=== PATIENT | male | born 1980 | race Two or more races ===

== ENCOUNTER 2023-12-13 13:08 | Outpatient (REF) | payer MEDICARE, MEDICAID, SELFPAY ==
[2023-12-13 14:29] LABS: Valproate 67.8 mcg/mL (50.0-100.0)
[2023-12-13 14:33] LABS: Alanine Aminotransferase 11 U/L (0-40); Albumin Level 3.8 g/dL (3.5-5.0); Alkaline Phosphatase 72 U/L (39-117); Aspartate Amino Transferase 13 U/L (5-37); Bilirubin Direct 0.1 mg/dL (0.0-0.5); Bilirubin Total 0.3 mg/dL (0.0-1.0); Total Protein 6.5 g/dL (6.5-8.0)
== END 2023-12-13 13:09 | disposition home or self-care (01) ==
LOC: HO.LAB 13:08
PROVIDERS: Visit Provider Psychiatry & Neurology Neurology
DX: G40.909 Epilepsy, unspecified, not intractable, without status epilepticus (principal); Z79.899 Other long term (current) drug therapy
CPT/HCPCS: 36415; 80076; 80164

== ENCOUNTER 2024-12-02 10:51 | Outpatient (AMB) | payer MEDICARE, MEDICAID, SELFPAY ==
--- OUTSIDE RECORDS SUMMARY | 2024-11-27 10:34 | XMS_ITS | Continuity of Care Document ---
Author Organization [facility] ter Address [address] [place] [id number]- Care Team Providers Care Bridge Game Director Name Role Phone Not on Staff, PCP Primary Care Physician Unavail able Encounter [facility] [place] Date(s): 11/17/24 - 11/27/[address] [address]- Encounter Diagnosis Seizure(Final) - 11/17/24 Lactic acidosis(Final) - 11/17/24 Altered mental status(Final) - 11/17/24 Respiratory acidosis(Final) - 11/17/24 Discharge Disposition: A-D/C Home Attending Physician: Linette RIVERA, Dex Pappas Admitting Physician: Yamile Mello MD Referring Physician: Not on Staff, Referring MD Encounter Type: Disch IP Allergies, Adverse Reactions, Alerts No Known Allergies Immunizations Given and Recorded Vaccine Date Status Refusal Reason pneumococcal 23-valent vaccine 11/20/14 Given tetanus/diphtheria/pertussis, acel(Tdap) 08/16/12 Given Medications Advocate glucometer Advocate glucometer, See Instructions, # 1 each, Refills 1, Tot. Refills 1, Maintenance, use 1-2 times a day, 06/06/21 10:43:00 AM EST, Supply, 173, cm, 05/05/21 13:06:00 EST, Height, 90, kg, 01/07/21 18:38:00 EDT, Dry Weight Start Date: 06/06/21 Status: Ordered Quantity: 1.0 Unit: each Repeat number: 2 Advocate lancets Advocate lancets, See Instructions, # 100 each, Refills 5, Tot. Refills 5, Maintenance, use 1-2 /day, 06/06/21 10:43:00 AM EST, Supply, 173, cm, 05/05/21 13:06:00 EST, Height, 90, kg, 01/07/21 18:38:00EDT, Dry Weight Start Date: 06/06/21 Status: Ordered Quantity: 100.0 Unit: each Repeat number: 6 Advocate meter test strips Advocate meter test strips, See Instructions, # 100 each, Refills 5, Tot. Refills 5, Maintenance, use 1-2 /day, 06/06/21 10:43:00 AM EST, Supply, 173, cm, 05/05/21 13:06:00 EST, Height, 90, kg, 01/07/21 18:38:00 EDT, Dry Weight Start Date: 06/06/21 Status: Ordered Quantity: 100.0 Unit: each Repeat number: 6 Alcohol Wipes See Instructions, # 2 box, Refills 3, Tot. Refills 3, Maintenance, use 3x a day to clean skin to when checking blood glucose, 12/16/15 10:48:50 AM EDT, Compound Start Date: 12/16/15 Status: Ordered Quantity: 2.0 Unit: box Repeat number: 4 atorvastatin 20 mg oral tablet 1 tablet = 20 mg, By Mouth, Daily, # 30 tablet, 0 Refills, Maintenance, 11/17/24 2:13:00 AM EDT, Tablet, Partial fill upon patient request if the prescription is for a schedule II opioid drug. Start Date: 11/17/24 Status: Ordered Quantity: 30.0 Unit: tablet Repeat number: 1 BD Ultrafine 15Fr8uv, 1/2 ml Syringe BD Ultrafine 45Hd2jc, 1/2 ml Syringe, See Instructions, # 30 each, Refills 11, Tot. Refills 11, Maintenance, Use syringe to inject Lantus daily, E11.65, 05/24/21 10:10:00 AM EST, Supply, 173, cm, 05/05/21 13:06:00 EST, Height, 90, kg, 01/07/21 18:38:00 EDT, Dry Weight Start Date: 05/24/21 Status: Ordered Quantity: 30.0 Unit: each Repeat number: 12 benztropine 1 mg oral tablet 0.5 mg, 0.5, tablet, By Mouth, 2 times a day, # 180 tablet, Refills 0, Maintenance, 11/17/24 2:13:00AM EDT, Partial fill upon patient request if the prescription is for a schedule II opioid drug. Start Date: 11/17/24 Status: Ordered Quantity: 180.0 Unit: tablet Repeat number: 1 cyanocobalamin 500 mcg oral tablet 1 tablet = 500 mcg, By Mouth, Daily, # 30 tablet, 0 Refills, Maintenance, 11/26/24 4:13:00 PM EDT, Tablet, Partial fill upon patient request if the prescription is for a schedule II opioid drug. Start Date: 11/26/24 Stop Date: 12/26/24 Status: Ordered Quantity: 30.0 Unit: tablet Repeat number: 1 Freestyle Lancets See Instructions, # 60 each, Refills 11, Tot. Refills 11, Maintenance, Use lancets to check blood glucose 2x a day, E11.65, 02/13/21 1:25:00 PM EDT, Compound, 173, cm, 03/05/20 11:33:00 EDT, Height Start Date: 02/13/21 Stop Date: 02/08/22 Status: Ordered Quantity: 60.0 Unit: each Repeat number: 12 Freestyle Lancets See Instructions, # 50 each, Refills 5, Tot. Refills 5, Maintenance, test Bg once daily, E11.9, 05/24/21 10:10:00 AM EST, Compound, 173, cm, 05/05/21 13:06:00 EST, Height, 90, kg, 01/07/21 18:38:00 EDT, Dry Weight Start Date: 05/24/21 Stop Date: 11/20/21 Status: Ordered Quantity: 50.0 Unit: each Repeat number: 6 FREESTYLE LITE TEST STRIP FREESTYLE LITE TEST STRIP, See Instructions, # 100 Unknown, 4 Refills, USE TEST STRIPS TO CHECK BLOOD GLUCOSE 2X A DAY, E11.65,, 173, cm, 01/14/21 9:16:00 EDT, Height, 90, kg, 01/07/21 18:38:00 EDT, Dry Weight Start Date: 03/14/21 Status: Ordered Quantity: 100.0 Unit: Unknown Repeat number: 1 Freestyle Lite Test Strips See Instructions, # 60 each, Refills 11, Tot. Refills 11, Maintenance, Use test strips to check blood glucose 2x a day, E11.65,, 05/24/21 10:10:00 AM EST, Compound, 173, cm, 05/05/21 13:06:00 EST, Height, 90, kg, 01/07/21 18:38:00 EDT, Dry Weight Start Date: 05/24/21 Status: Ordered Quantity: 60.0 Unit: each Repeat number: 12 gemfibrozil 600 mg oral tablet 600 mg, 1, tablet, By Mouth, 2 times a day, # 60 tablet, Refills 0, Maintenance, 11/17/24 2:14:00 AMEDT, Partial fill upon patient request if the prescription is for a schedule II opioid drug. Start Date: 11/17/24 Status: Ordered Quantity: 60.0 Unit: tablet Repeat number: 1 glipiZIDE 5 mg oral tablet 5 mg, 1, tablet, By Mouth, 2 times a day, # 60 tablet, Refills 0, Tot. Refills 0, Maintenance, 11/26/24 4:13:00 PM EDT, Do Not Route, Partial fill upon patient request if the prescription is for a schedule II opioid drug. Start Date: 11/26/24 Stop Date: 12/26/24 Status: Ordered Quantity: 60.0 Unit: tablet Repeat number: 1 Glucose Monitor See Instructions, # 1 application, Maintenance, 3 TIMES A DAY, 09/10/15 11:15:08 AM EDT, Compound Start Date: 09/10/15 Status: Ordered Quantity: 1.0 Unit: application Repeat number: 1 Glucose Test Strips See Instructions, # 1 box, Refills 1, Tot. Refills 1, Maintenance, 3 TIMES A DAY, 09/10/15 11:15:14 AM EDT, Compound Start Date: 09/10/15 Status: Ordered Quantity: 1.0 Unit: box Repeat number: 2 Insulin Syringe, BD Ultra-Fine 0.5 cc 30 G x 12.7 mm (1/2in) See Instructions, # 1 application, Refills 2, Tot. Refills 2, Maintenance, 2 TIMES A DAY, 09/11/15 10:59:20 AM EDT, Compound Start Date: 09/11/15 Status: Ordered Quantity: 1.0 Unit: application Repeat number: 3 Insulin Syringe, BD Ultra-Fine 0.5 cc 31 G x 8 mm (10/17in) See Instructions, # 35 each, Refills 9, Tot. Refills 9, Maintenance, once daily injections.1mo., 10/23/16 5:07:01 PM EDT, Compound Start Date: 10/23/16 Stop Date: 08/19/17 Status: Ordered Quantity: 35.0 Unit: each Repeat number: 10 Indications: Type 2 diabetes mellitus without complications; Insulin Syringes See Instructions, # 1 box, Refills 1, Tot. Refills 1, Maintenance, 3 TIMES A BEFORE MEAL, 09/10/15 11:15:34 AM EDT, Compound Start Date: 09/10/15 Status: Ordered Quantity: 1.0 Unit: box Repeat number: 2 lacosamide 100 mg oral tablet = 100 mg, By Mouth, 2 times a day, # 60 tablet, 0 Refills, Maintenance, 12/26/24 4:13:00 PM EDT, Tablet, [facility], Partial fill upon patient request if the prescription is for a schedule II opioid drug., 167, cm, 11/26/24 4:54:00 EDT, Height, 93.8, kg, 11/17/24 1:02:00 EDT, Dry Weight Start Date: 12/26/24 Stop Date: 01/25/25 Status: Ordered Quantity: 60.0 Unit: tablet Repeat number: 1 Lancets See Instructions, # 1 box, Refills 1, Tot. Refills 1, Maintenance, 3 TIMES A DAY, 09/10/15 11:15:22 AM EDT, Compound Start Date: 09/10/15 Status: Ordered Quantity: 1.0 Unit: box Repeat number: 2 Lantus Inj 0.1 mL = 10 units, Subcutaneous Injection, Daily at bedtime, 0 Refills, Maintenance, 11/26/24 4:13:00 PM EDT, Injection, Partial fill upon patient request if the prescription is for a schedule II opioid drug. Start Date: 11/26/24 Status: Ordered Repeat number: 1 magnesium oxide 400 mg oral tablet = 400 mg, By Mouth, 2 times a day, for 2 days, # 4 tablet, 0 Refills, Acute 11/28/24 4:15:00 PM EDT,11/26/24 4:15:00 PM EDT, Tablet, [facility], Partial fill upon patient request if the prescription is for a schedule II opioid drug., 167, cm, 11/26/24 4:54:00 EDT, Height, 93.8, kg, 11/17/24 1:02:00 EDT, Dry Weight Start Date: 11/26/24 Stop Date: 11/28/24 Status: Ordered Quantity: 4.0 Unit: tablet Repeat number: 1 metFORMIN 1000 mg oral tablet 1 tablet = 1,000 mg, By Mouth, 2 times a day, # 60 tablet, 0 Refills, Maintenance, 11/17/24 2:13:00 AM EDT, Tablet, Partial fill upon patient request if the prescription is for a schedule II opioid drug. Start Date: 11/17/24 Status: Ordered Quantity: 60.0 Unit: tablet Repeat number: 1 One Touch Ultra 2 Glucose Meter See Instructions, # 1 each, Refills 2, Tot. Refills 2, Maintenance, use as directed for Type 1 Diabetes Mellitus, 09/11/15 11:01:50 AM EDT, Compound Start Date: 09/11/15 Stop Date: 12/10/15 Status: Ordered Quantity: 1.0 Unit: each Repeat number: 3 One Touch Ultra Test Strips See Instructions, # 200 each, Refills 5, Tot. Refills 5, Maintenance, use as directed for Type 1 Diabetes Mellitus, 09/11/15 11:01:38 AM EDT, Compound Start Date: 09/11/15 Stop Date: 03/09/16 Status: Ordered Quantity: 200.0 Unit: each Repeat number: 6 potassium phosphate-sodium phosphate 250 mg-280 mg-160 mg oral powder for reconstitution 1 pack/packet, By Mouth, 2 times a day, # 4 pack/packet, 0 Refills, Maintenance, 11/26/24 4:16:00 PMEDT, Oral Powder, [facility], Partial fill upon patient request if the prescription is for a schedule II opioid drug., 1 pack/packet By Mouth 2 times a day,x2 days, 167, cm, 11/26/24 4:54:00 EDT, Height, 93.8, kg, 11/17/24 1:02:00 EDT, Dry Weight Start Date: 11/26/24 Stop Date: 11/28/24 Status: Ordered Quantity: 4.0 Unit: pack/packet Repeat number: 1 Prodify lancets E 11.65 Prodify lancets E 11.65, See Instructions, # 120 each, Refills 5, Tot. Refills 5, Maintenance, Use 4/ day, 07/05/21 3:10:00 PM EST, Supply, 173, cm, 05/05/21 13:06:00 EST, Height, 90, kg, 01/07/21 18:38:00 EDT, Dry Weight Start Date: 07/05/21 Status: Ordered Quantity: 120.0 Unit: each Repeat number: 6 Prodigy glucoemter. Prodigy glucoemter., See Instructions, # 1 each, Refills 1, Tot. Refills 1, Maintenance, test 4 times a day E 11.65, 06/17/21 8:55:00 AM EST, Supply, 173, cm, 05/05/21 13:06:00 EST, Height, 90, kg, 01/07/21 18:38:00 EDT, Dry Weight Start Date: 06/17/21 Status: Ordered Quantity: 1.0 Unit: each Repeat number: 2 Prodigy Teststrips Prodigy Teststrips, See Instructions, # 360 each, Refills 3, Tot. Refills 3, Maintenance, Use 4/ day . ICD : E 11.65, 06/17/21 8:55:00 AM EST, Supply, 173, cm, 05/05/21 13:06:00 EST, Height, 90, kg, 01/07/21 18:38:00 EDT, Dry Weight Start Date: 06/17/21 Status: Ordered Quantity: 360.0 Unit: each Repeat number: 4 PRODIGY TWIST TOP 28G LANCET PRODIGY TWIST TOP 28G LANCET, See Instructions, # 100 Unknown, 0 Refills, USE 4 TIMES DAILY DIRECTED., 173, cm, 05/05/21 13:06:00 EST, Height, 90, kg, 01/07/21 18:38:00 EDT, Dry Weight Start Date: 06/29/21 Status: Ordered Quantity: 100.0 Unit: Unknown Repeat number: 1 risperiDONE 3 mg oral tablet 3 mg, 1, tablet, By Mouth, 2 times a day, # 60 tablet, Refills 0, Maintenance, 11/17/24 2:14:00 AM EDT, Partial fill upon patient request if the prescription is for a schedule II opioid drug. Start Date: 11/17/24 Status: Ordered Quantity: 60.0 Unit: tablet Repeat number: 1 Toprol XL 25 mg oral tablet, extended release 25 mg, XL Tablet, By Mouth, 11/27/24 9:00:00 AM EDT Start Date: 11/27/24 Stop Date: 11/27/24 Status: Completed Repeat number: 1 Toprol XL 25 mg oral tablet, extended release 25 mg, By Mouth, Daily, # 30 tablet, Refills 0, Tot. Refills 0, Maintenance, 11/26/24 4:15:00 PM EDT, Route to Pharmacy Electronically, [facility] 3, Partial fill upon patient request if the prescription is for a schedule II opioid drug., 167, cm, 11/26/24 4:54:00 EDT, Height, 93.8, kg, 11/17/24 1:02:00 EDT, Dry Weight Start Date: 11/26/24 Stop Date: 12/26/24 Status: Ordered Quantity: 30.0 Unit: tablet Repeat number: 1 traZODone 50 mg oral tablet 150 mg, By Mouth, Daily at bedtime, Refills 0, Maintenance, 10/04/20 1:58:00 PM EDT, Partial fill upon patient request if the prescription is for a schedule II opioid drug. Start Date: 10/04/20 Status: Ordered Repeat number: 1 Tylenol 325 mg oral tablet 650 mg, By Mouth, Every 6 hours, PRN, Refills 0, Maintenance, Pain , Moderate, 11/26/24 4:08:00 PM EDT, Partial fill upon patient request if the prescription is for a schedule II opioid drug. Start Date: 11/26/24 Status: Ordered Repeat number: 1 valproic acid 250 mg/5 mL oral syrup 12.5 mL = 625 mg, By Mouth, Every 6 hours, # 1,500 mL, 0 Refills, Maintenance, 11/26/24 4:14:00 PM EDT, Syrup, [facility] 3, Partial fill upon patient request if the prescription is for a schedule II opioid drug., 167, cm, 11/26/24 4:54:00 EDT, Height, 93.8, kg, 11/17/24 1:02:00 EDT, DryWeight Start Date: 11/26/24 Status: Ordered Quantity: 1500.0 Unit: mL Repeat number: 1 Problem List Condition Confirmation Course Effective Dates Status Health St atus Informant Obese class I Confirmed Active Sleep apnea Confirmed Active T2DM (type 2 diabetes mellitus) Confirmed Active Results Radiology Reports * Exam Date Time Procedure Performing Provider Status 11/22/24 2:30 PM Chest Portable Auth (Veri fied) Notes: (Chest Portable) Reason For Exam: Cough RESULT: Chest Portable Chest Portable Reason: Cough; Clinical Question(s): Pneumonia; Please evaluate for any acute changes. Thanks. / Pneumonia COMPARISON: 11/19/2024 FINDINGS: LINES AND TUBES: None. LUNGS AND PLEURA: Low lung volumes with mild basilar atelectasis. Lungs are otherwise clear with no definite consolidation. No pleural effusion. No pneumothorax. HEART, MEDIASTINUM AND NORY: Heart is normal in size. Normal mediastinal and hilar contour. BONES AND SOFT TISSUES: No acute abnormality. IMPRESSION: No evidence of acute abnormality. WSN: [id number] Ordering Physician: Dov Hobson Dictated By: Jean Godinez MD Dictated Date/Time: 11/22/24 2:33 pm Reviewed By: Jean Godinez MD Signed By: Jean Godinez MD Signed Date/Time: 11/22/24 2:33 pm Transcribed By: LUZ Transcribed Date/Time: 11/22/24 2:33 pm * Exam Date Time Procedure Performing Provider Status 11/19/24 9:11 AM Chest Portable Auth (Veri fied) Notes: (Chest Portable) Reason For Exam: Shortness of Breath RESULT: Chest Portable Chest Portable Reason: Shortness of Breath; Clinical Question(s): Pulmonary Edema COMPARISON: 11/16/2024. FINDINGS: LINES AND TUBES: Interval removal of endotracheal tube. Interval removal of enteric tube. LUNGS AND PLEURA: Low lung volumes with bibasilar atelectasis is again seen, lungs are otherwise clear. Persistent moderate elevation of the right hemidiaphragm probably due to eventration with minimal subsegmental atelectasis right lung base unchanged. Normal pulmonary vascularity. Questionable trace left pleural effusion. No pneumothorax. HEART, MEDIASTINUM AND NORY: Heart is normal in size. Normal mediastinal and hilar contour. BONES AND SOFT TISSUES: No acute abnormality. IMPRESSION: 1. Questionable trace left pleural effusion. Persistent moderate elevation of the right hemidiaphragm. 2. Interval removal of endotracheal tube. 3. Interval removal of enteric tube. WSN: [id number] Ordering Physician: Scarlett Muñoz Dictated By: Bandar Dolan MD, V Dictated Date/Time: 11/19/24 12:24 p Reviewed By: Bandar Dolna MD, V Signed By: Bandar Dolan MD, V Signed Date/Time: 11/19/24 12:24 pm Transcribed By: LUZ Transcribed Date/Time: 11/19/24 12:09 pm * Exam Date Time Procedure Performing Provider Status 11/17/24 12:[address] Lumbar Spine W/O Contrast Auth (Verified) Notes: (CT Lumbar Spine W/O Contrast) Reason For Exam: Spine fracture, lumbar, traumatic;Other: RESULT: CT Lumbar Spine W/O Contrast CT Chest W/O Contrast, CT Thoracic Spine W/O Contrast, CT Lumbar Spine W/O Contrast INDICATION: Reason: Other:; Chest Pain; Clinical Question(s): Interstitial Alveolar Infiltration TECHNIQUE: Helical CT scan of the chest without IV contrast, formatted in 3 planes. The original dataset was reconstructed with a small field of view around the thoracic and lumbar spine utilizing soft tissue and bone algorithm reconstructions in 3 planes. Weight-based protocol was performed using automatic exposure control. CTDIvol Body: 19.70 mGy, DLP Body: 1207 mGy*cm. COMPARISON: None. FINDINGS: Medical Imaging Technician view findings, lines and tubes: Endotracheal tube tip terminates approximately 2.9 cm above the janice. Enteric tube tip is within the stomach. Trachea and airways: Patent without evidence of tracheal or endobronchial lesion. Lungs and pleura: Low lung volumes. Consolidative opacity with air bronchograms in the right lower lobe. Small bilateral pleural effusions with adjacent compressive atelectasis. Interlobular septal thickening. Calcified granulomata in the left lung base.. No suspicious pulmonary nodule. No pneumothorax. Mediastinum and nory: No mass or hematoma. No mediastinal or hilar lymphadenopathy. No esophageal abnormality. Partially imaged thyroid is unremarkable. Heart: Heart is normal in size. No pericardial effusion. No coronary arterial calcifications. Aorta: No aortic aneurysm. Pulmonary arteries: Normal caliber. Chest wall soft tissues: No acute abnormality. Right greater than left gynecomastia. No axillary lymphadenopathy. Diaphragm: Elevation of the right hemidiaphragm. Liver: Normal in attenuation and morphology. No suspicious lesion. Gallbladder: No CT evidence of gallbladder pathology. Bile ducts: No biliary ductal dilation. Spleen: Normal in size. Pancreas: No suspicious lesion or ductal dilatation. Adrenal glands: No nodule. Kidneys and ureters: No hydronephrosis, stone, or noncontrast evidence of a suspicious lesion within the visualized portions of the kidneys. Mild nonspecific bilateral perinephric fat stranding. Stomach and visualized small bowel, and large bowel: Normal caliber stomach and bowel loops. No surrounding inflammatory changes. Submucosal fat deposition throughout the visualized colon, as can be seen with chronic inflammation, obesity, or extensive alcohol use. Thoracic spine: * Questionable Nondisplaced T5 vertebral body fracture. * Questionable Minimally displaced right T6 transverse process fracture. Questionable Nondisplaced fracture of the right T5 and T6 lamina. * Questionable Nondisplaced fracture of the left T2 lamina. * Questionable nondisplaced right T4, T5, and T7, T9, T11 transverse process fracture. Lumbar spine: * Questionable Nondisplaced left L1-L3 transverse process fracture * Questionable Nondisplaced right L1 transverse process fracture. Bones: Question very subtle Nondisplaced first through fourth right posterior rib fractures. Questionable Nondisplaced left posterior 12th rib fracture. IMPRESSION: 1. Small bilateral pleural effusions with adjacent compressive atelectasis. Probable right lower lobe pneumonia. Mild interlobular septal thickening suggesting interstitial edema. 2. Osseous detail is somewhat limited by motion. However, there is a questionable nondisplaced T5 questionable vertebral body fracture and a minimally displaced right questionable T6 transverse process fracture. Questionable Nondisplaced fractures of the right T5 and T6 lamina are also seen. 3. There are several additional questionable tiny nondisplaced fractures of right transverse processes, as detailed above. 4. Questionable Questionable Nondisplaced left-sided L1-L3 transverse process fractures. Nondisplaced right L1 transverse process fracture. 5. Very subtle questionable Nondisplaced fractures of the first through fourth right posterior ribs. Questionable Nondisplaced fracture of the left posterior 12th rib. I have personally reviewed the images and I agree with this report. WSN: [id number] Ordering Physician: Júnior Prescott Dictated By: Darrell An MD Dictated Date/Time: 11/17/24 7:35 am Reviewed By: Drew Acevedo MD Signed By: Drew Acevedo MD Signed Date/Time: 11/17/24 7:40 am Transcribed By: LUZ Transcribed Date/Time: 11/17/24 2:40 am * Exam Date Time Procedure Performing Provider Status 11/17/24 12:[address] Thoracic Spine W/O Contrast Auth (Verified) Notes: (CT Thoracic Spine W/O Contrast) Reason For Exam: Spine fracture, thoracic, traumatic;Other: RESULT: CT Thoracic Spine W/O Contrast CT Chest W/O Contrast, CT Thoracic Spine W/O Contrast, CT Lumbar Spine W/O Contrast INDICATION: Reason: Other:; Chest Pain; Clinical Question(s): Interstitial Alveolar Infiltration TECHNIQUE: Helical CT scan of the chest without IV contrast, formatted in 3 planes. The original dataset was reconstructed with a small field of view around the thoracic and lumbar spine utilizing soft tissue and bone algorithm reconstructions in 3 planes. Weight-based protocol was performed using automatic exposure control. CTDIvol Body: 19.70 mGy, DLP Body: 1207 mGy*cm. COMPARISON: None. FINDINGS: Medical Imaging Technician view findings, lines and tubes: Endotracheal tube tip terminates approximately 2.9 cm above the janice. Enteric tube tip is within the stomach. Trachea and airways: Patent without evidence of tracheal or endobronchial lesion. Lungs and pleura: Low lung volumes. Consolidative opacity with air bronchograms in the right lower lobe. Small bilateral pleural effusions with adjacent compressive atelectasis. Interlobular septal thickening. Calcified granulomata in the left lung base.. No suspicious pulmonary nodule. No pneumothorax. Mediastinum and nory: No mass or hematoma. No mediastinal or hilar lymphadenopathy. No esophageal abnormality. Partially imaged thyroid is unremarkable. Heart: Heart is normal in size. No pericardial effusion. No coronary arterial calcifications. Aorta: No aortic aneurysm. Pulmonary arteries: Normal caliber. Chest wall soft tissues: No acute abnormality. Right greater than left gynecomastia. No axillary lymphadenopathy. Diaphragm: Elevation of the right hemidiaphragm. Liver: Normal in attenuation and morphology. No suspicious lesion. Gallbladder: No CT evidence of gallbladder pathology. Bile ducts: No biliary ductal dilation. Spleen: Normal in size. Pancreas: No suspicious lesion or ductal dilatation. Adrenal glands: No nodule. Kidneys and ureters: No hydronephrosis, stone, or noncontrast evidence of a suspicious lesion within the visualized portions of the kidneys. Mild nonspecific bilateral perinephric fat stranding. Stomach and visualized small bowel, and large bowel: Normal caliber stomach and bowel loops. No surrounding inflammatory changes. Submucosal fat deposition throughout the visualized colon, as can be seen with chronic inflammation, obesity, or extensive alcohol use. Thoracic spine: * Questionable Nondisplaced T5 vertebral body fracture. * Questionable Minimally displaced right T6 transverse process fracture. Questionable Nondisplaced fracture of the right T5 and T6 lamina. * Questionable Nondisplaced fracture of the left T2 lamina. * Questionable nondisplaced right T4, T5, and T7, T9, T11 transverse process fracture. Lumbar spine: * Questionable Nondisplaced left L1-L3 transverse process fracture * Questionable Nondisplaced right L1 transverse process fracture. Bones: Question very subtle Nondisplaced first through fourth right posterior rib fractures. Questionable Nondisplaced left posterior 12th rib fracture. IMPRESSION: 1. Small bilateral pleural effusions with adjacent compressive atelectasis. Probable right lower lobe pneumonia. Mild interlobular septal thickening suggesting interstitial edema. 2. Osseous detail is somewhat limited by motion. However, there is a questionable nondisplaced T5 questionable vertebral body fracture and a minimally displaced right questionable T6 transverse process fracture. Questionable Nondisplaced fractures of the right T5 and T6 lamina are also seen. 3. There are several additional questionable tiny nondisplaced fractures of right transverse processes, as detailed above. 4. Questionable Questionable Nondisplaced left-sided L1-L3 transverse process fractures. Nondisplaced right L1 transverse process fracture. 5. Very subtle questionable Nondisplaced fractures of the first through fourth right posterior ribs. Questionable Nondisplaced fracture of the left posterior 12th rib. I have personally reviewed the images and I agree with this report. WSN: [id number] Ordering Physician: Júnior Prescott Dictated By: Darrell An MD Dictated Date/Time: 11/17/24 7:35 am Reviewed By: Drew Acevedo MD Signed By: Drew Acevedo MD Signed Date/Time: 11/17/24 7:40 am Transcribed By: LUZ Transcribed Date/Time: 11/17/24 2:40 am * Exam Date Time Procedure Performing Provider Status 11/17/24 12:[address] Chest W/O Contrast Au th (Verified) Notes: (CT Chest W/O Contrast) Reason For Exam: Chest Pain;Other: RESULT: CT Chest W/O Contrast CT Chest W/O Contrast, CT Thoracic Spine W/O Contrast, CT Lumbar Spine W/O Contrast INDICATION: Reason: Other:; Chest Pain; Clinical Question(s): Interstitial Alveolar Infiltration TECHNIQUE: Helical CT scan of the chest without IV contrast, formatted in 3 planes. The original dataset was reconstructed with a small field of view around the thoracic and lumbar spine utilizing soft tissue and bone algorithm reconstructions in 3 planes. Weight-based protocol was performed using automatic exposure control. CTDIvol Body: 19.70 mGy, DLP Body: 1207 mGy*cm. COMPARISON: None. FINDINGS: Medical Imaging Technician view findings, lines and tubes: Endotracheal tube tip terminates approximately 2.9 cm above the janice. Enteric tube tip is within the stomach. Trachea and airways: Patent without evidence of tracheal or endobronchial lesion. Lungs and pleura: Low lung volumes. Consolidative opacity with air bronchograms in the right lower lobe. Small bilateral pleural effusions with adjacent compressive atelectasis. Interlobular septal thickening. Calcified granulomata in the left lung base.. No suspicious pulmonary nodule. No pneumothorax. Mediastinum and nory: No mass or hematoma. No mediastinal or hilar lymphadenopathy. No esophageal abnormality. Partially imaged thyroid is unremarkable. Heart: Heart is normal in size. No pericardial effusion. No coronary arterial calcifications. Aorta: No aortic aneurysm. Pulmonary arteries: Normal caliber. Chest wall soft tissues: No acute abnormality. Right greater than left gynecomastia. No axillary lymphadenopathy. Diaphragm: Elevation of the right hemidiaphragm. Liver: Normal in attenuation and morphology. No suspicious lesion. Gallbladder: No CT evidence of gallbladder pathology. Bile ducts: No biliary ductal dilation. Spleen: Normal in size. Pancreas: No suspicious lesion or ductal dilatation. Adrenal glands: No nodule. Kidneys and ureters: No hydronephrosis, stone, or noncontrast evidence of a suspicious lesion within the visualized portions of the kidneys. Mild nonspecific bilateral perinephric fat stranding. Stomach and visualized small bowel, and large bowel: Normal caliber stomach and bowel loops. No surrounding inflammatory changes. Submucosal fat deposition throughout the visualized colon, as can be seen with chronic inflammation, obesity, or extensive alcohol use. Thoracic spine: * Questionable Nondisplaced T5 vertebral body fracture. * Questionable Minimally displaced right T6 transverse process fracture. Questionable Nondisplaced fracture of the right T5 and T6 lamina. * Questionable Nondisplaced fracture of the left T2 lamina. * Questionable nondisplaced right T4, T5, and T7, T9, T11 transverse process fracture. Lumbar spine: * Questionable Nondisplaced left L1-L3 transverse process fracture * Questionable Nondisplaced right L1 transverse process fracture. Bones: Question very subtle Nondisplaced first through fourth right posterior rib fractures. Questionable Nondisplaced left posterior 12th rib fracture. IMPRESSION: 1. Small bilateral pleural effusions with adjacent compressive atelectasis. Probable right lower lobe pneumonia. Mild interlobular septal thickening suggesting interstitial edema. 2. Osseous detail is somewhat limited by motion. However, there is a questionable nondisplaced T5 questionable vertebral body fracture and a minimally displaced right questionable T6 transverse process fracture. Questionable Nondisplaced fractures of the right T5 and T6 lamina are also seen. 3. There are several additional questionable tiny nondisplaced fractures of right transverse processes, as detailed above. 4. Questionable Questionable Nondisplaced left-sided L1-L3 transverse process fractures. Nondisplaced right L1 transverse process fracture. 5. Very subtle questionable Nondisplaced fractures of the first through fourth right posterior ribs. Questionable Nondisplaced fracture of the left posterior 12th rib. I have personally reviewed the images and I agree with this report. WSN: [id number] Ordering Physician: Júnior Prescott Dictated By: Darrell An MD Dictated Date/Time: 11/17/24 7:35 am Reviewed By: Drew Acevedo MD Signed By: Drew Acevedo MD Signed Date/Time: 11/17/24 7:40 am Transcribed By: LUZ Transcribed Date/Time: 11/17/24 2:40 am * Exam Date Time Procedure Performing Provider Status 11/17/24 12:[address] Cervical Spine W/O Contrast Auth (Verified) Notes: (CT Cervical Spine W/O Contrast) Reason For Exam: Neck trauma, dangerous injury mechanism;Other: RESULT: CT Cervical Spine W/O Contrast CT Head/Brain W/O Contrast, CT Cervical Spine W/O Contrast INDICATION: Reason: Trauma; Clinical Question(s): Subarachnoid Hemorrhage; Order Comment: TECHNIQUE: Noncontrast head CT using axial technique was reconstructed in axial and coronal planes.Noncontrast spiral CT through the cervical spine was formatted in 3 planes. Automatic tube modulation was used for the cervical spine and iterative dose reconstruction was used for both the head and cervical spine to optimize scan parameters and image quality. CTDIvol Body: 21.30 mGy, DLP Body: 582 mGy*cm. CTDIvol Head: 46.30 mGy, DLP Head: 773 mGy*cm. COMPARISON: None. FINDINGS: Medical Imaging Technician View Findings, Lines and Tubes: Endotracheal and enteric tubes in place. BRAIN AND EXTRA-AXIAL SPACES: No parenchymal hemorrhage, midline shift, or mass effect. Encephalomalacia in the left frontal lobelikely related to prior left frontal craniotomy. Otherwise, chawla-white matter differentiation is well preserved. No acute infarct. Negative insular ribbon and hyperdense vessel signs. Ventricles, sulci, and basilar cisterns are normal. No white matter lesions. No subarachnoid hemorrhage. No subdural or epidural collection. CALVARIUM, SKULL BASE, AND SOFT TISSUES: No fractures or suspicious bony lesions. Status post left frontal craniotomy. Mucosal thickening in the bilateral ethmoid air cells and sphenoid sinuses as well as the right frontal sinus. Otherwise, visualized paranasal sinuses and mastoid air cells are clear. Visualized orbits and globes are intact. The extracranial soft tissues are unremarkable. CERVICAL SPINE: No fracture. No acute osseous abnormalities. Normal alignment. No locked or perched facet. Mild-moderate multilevel degenerative disc space narrowing and end plate irregularity. OTHER BONES: No acute abnormality. CERVICAL SOFT TISSUES AND LUNG APICES: Normal soft tissues. Mild dependent atelectasis bilaterally. Normal thyroid. IMPRESSION: No acute abnormality of the head or cervical spine. I have personally reviewed the images and I agree with this report. WSN: [id number] Ordering Physician: Júnior Prescott Dictated By: Darrell An MD Dictated Date/Time: 11/17/24 6:34 am Reviewed By: Drew Acevedo MD Signed By: Drew Acevedo MD Signed Date/Time: 11/17/24 6:39 am Transcribed By: LUZ Transcribed Date/Time: 11/17/24 1:17 am * Exam Date Time Procedure Performing Provider Status 11/17/24 12:[address] Head/Brain W/O Contrast Auth (Verified) Notes: (CT Head/Brain W/O Contrast) Reason For Exam: Trauma RESULT: CT Head/Brain W/O Contrast CT Head/Brain W/O Contrast, CT Cervical Spine W/O Contrast INDICATION: Reason: Trauma; Clinical Question(s): Subarachnoid Hemorrhage; Order Comment: TECHNIQUE: Noncontrast head CT using axial technique was reconstructed in axial and coronal planes.Noncontrast spiral CT through the cervical spine was formatted in 3 planes. Automatic tube modulation was used for the cervical spine and iterative dose reconstruction was used for both the head and cervical spine to optimize scan parameters and image quality. CTDIvol Body: 21.30 mGy, DLP Body: 582 mGy*cm. CTDIvol Head: 46.30 mGy, DLP Head: 773 mGy*cm. COMPARISON: None. FINDINGS: Medical Imaging Technician View Findings, Lines and Tubes: Endotracheal and enteric tubes in place. BRAIN AND EXTRA-AXIAL SPACES: No parenchymal hemorrhage, midline shift, or mass effect. Encephalomalacia in the left frontal lobelikely related to prior left frontal craniotomy. Otherwise, chawla-white matter differentiation is well preserved. No acute infarct. Negative insular ribbon and hyperdense vessel signs. Ventricles, sulci, and basilar cisterns are normal. No white matter lesions. No subarachnoid hemorrhage. No subdural or epidural collection. CALVARIUM, SKULL BASE, AND SOFT TISSUES: No fractures or suspicious bony lesions. Status post left frontal craniotomy. Mucosal thickening in the bilateral ethmoid air cells and sphenoid sinuses as well as the right frontal sinus. Otherwise, visualized paranasal sinuses and mastoid air cells are clear. Visualized orbits and globes are intact. The extracranial soft tissues are unremarkable. CERVICAL SPINE: No fracture. No acute osseous abnormalities. Normal alignment. No locked or perched facet. Mild-moderate multilevel degenerative disc space narrowing and end plate irregularity. OTHER BONES: No acute abnormality. CERVICAL SOFT TISSUES AND LUNG APICES: Normal soft tissues. Mild dependent atelectasis bilaterally. Normal thyroid. IMPRESSION: No acute abnormality of the head or cervical spine. I have personally reviewed the images and I agree with this report. WSN: [id number] Ordering Physician: Júnior Prescott Dictated By: Darrell An MD Dictated Date/Time: 11/17/24 6:34 am Reviewed By: Drew Acevedo MD Signed By: Drew Acevedo MD Signed Date/Time: 11/17/24 6:39 am Transcribed By: LUZ Transcribed Date/Time: 11/17/24 1:17 am * Exam Date Time Procedure Performing Provider Status 11/16/24 9:58 PM Chest Portable Auth (Veri fied) Notes: (Chest Portable) Reason For Exam: Tube Placement RESULT: Chest Portable Chest Portable Hx of Present Illness: See cheryl 1 sheet; Reason: Tube Placement; Clinical Question(s): Tube Placement COMPARISON: None. FINDINGS: LINES AND TUBES: Endotracheal tube terminates 3 cm above the janice. Enteric tube terminates in the stomach with its side hole below the level of the GE junction. LUNGS AND PLEURA: Low lung volumes with mild basilar atelectasis. Lungs are otherwise clear with no consolidation. No pleural effusion. No pneumothorax. HEART, MEDIASTINUM AND NORY: Heart is normal in size. Normal mediastinal and hilar contour. BONES AND SOFT TISSUES: No acute abnormality. IMPRESSION: Support devices are in good position. Low lung volumes with bibasilar atelectasis. WSN: [id number] Ordering Physician: Júnior Prescott Dictated By: France Anderson MD Dictated Date/Time: 11/16/24 10:11 p Reviewed By: France Anderson MD Signed By: France Anderson MD Signed Date/Time: 11/16/24 10:11 pm Transcribed By: LUZ Transcribed Date/Time: 11/16/24 10:09 pm Social History Social History Type Response Smoking Status Former smoker; Other : NON SMOKER SINCE 11/08/2014; entered on: 12/01/14 Sex Sex Representation Male (finding) Admission evaluation note * Nico Perez DO: MODIFY, MODIFY, MODIFY, MODIFY, MODIFY, PERFORM, MODIFY, MODIFY, MODIFY Event Display: Admission Note Authored Date: [id number] Patient: ??THAYER, CASSIE ? Age:??44 Years?Sex:??Male?:??1980?? Chief Complaint/Reason for Consultation Unresponsive History of Present Illness 44-year-old male past medical history of epilepsy bipolar disorder, autism, schizophrenia, type 2 diabetes mellitus, presented via EMS after having seizure- like activity found outside of his apartment around 1899.?? Came in as a resuscitation and had CPR started immediately.?? He received 10 mg of Versed and per EMS was noted to have left??eye deviation at that time.?? GCS on arrival 3.?? Given patient's lack of protection of airway he was intubated and given 3 g of Keppra for seizure prophylaxis.?? He was briefly hypotensive and received 1 L of IV fluids and briefly required Levophed 0.05 mcg/kg/min which led to normalization of his blood pressure.?? He is now off of pressor medication. ? Vitals: Initially hypothermic axillary 96.5 blood on rectal 97.9.?? Heart rate 101 blood pressure 129/94 and on ventilator. ?? Labs: Venous blood gas 7.2 07/04// CBC no leukocytosis hemoglobin 12.4 unknown baseline hemoglobin MCV 97. CMP glucose 190.?? Sodium 141 potassium 4.3 chloride 107 bicarb 11 anion gap of 23 total protein low 6.1 otherwise CMP within normal limits.?? TSH 5.66 Free T4 low 0.68 Troponin 14 Urine toxicology positive for benzodiazepines but otherwise negative Influenza RSV COVID panel negative ?? Imaging: Pending CTH and CTAP CXR bibasilar atelectasis but no acute processes? Spoke with Ольга from long term??stated??that patient??has prior history of illicit drug use but she was unable to specify further.?? She states that he has not had alcohol??in over 2 years??to her knowledge.?? He states he does smoke cigarettes daily but does not know the amounts??and??I reviewed the medication list??with her??with the only discrepancy being??his valproic acid.?? She states that??he was on??an antiepileptic medication??that was slowly titrated down??and ultimately??discontinued??in May/June of this year.?? However upon medication reconciliation??and fill history??it was noted that he has??recently failed??valproic acid??and no other antiepileptic medications have been filled.?? States that in the morning she will have??more updated history??provide??once he has access to records ?? Review of Systems unable to obtain due to pt being intubated Objective Measurements?? Height: 167 cm (11/17/24) Weight: 93.8 kg (11/17/24) Dry Weight: 93.8 kg (11/17/24) Body Mass Index:??33.63 kg/m2??Critical (11/17/24) ? Vital Signs?? Temperature: 97.9 DegF (11/17/24 00:49:00) Temperature Route: Oral (11/17/24 00:49:00) Pulse Rate: 90 bpm (11/17/24 00:49:00) Heart Rate Monitored:??101 bpm??High (11/16/24 21:15:00) Respiratory Rate: 19 br/min (11/17/24 00:49:00) Vented: Yes (11/17/24 00:48:00) Systolic Blood Pressure: 125 mm Hg (11/17/24 00:49:00) Diastolic Blood Pressure: 70 mm Hg (11/17/24 00:49:00) Blood pressure sites: Arm, right (11/17/24 00:49:00) Mean Arterial Pressure: 88 mm Hg (11/17/24 00:49:00) Pulse Pressure: 55 mm Hg (11/17/24 00:49:00) Oxygen Saturation: 97 % (11/17/24 00:49:00) Mode of Delivery (Oxygen): Ventilator (11/17/24 00:49:00) FiO2: 40 % (11/16/24 21:15:00) Early Warning Score: 6 (11/16/24 23:34:20) ? Physical Exam General:??patient is intubated and sedated HEENT:??NCAT, EOMI, no scleral icterus,??moist mucus membranes, trachea midline. Cardiovascular: RRR S1 and S2 Respiratory: Breath sounds clear to auscultation bilaterally. No wheezing. GI: Soft. Nontender and nondistended. Normal bowel sounds present. MSK: No edema, no erythema in the lower extremities. Skin:??No rashes, bruises or skin breakdown. Neuro: slight left??lateral eye gaze Assessment/Plan Assessment:?? 44-year-old male with past medical history of epilepsy, bipolar disorder, autism, schizophrenia, unspecified mood disorder, type 2 diabetes mellitus??who presented??with seizure-like activity??when going to smoke cigarettes.?? Was brought in by EMS as a resuscitation??with??CPR started unclear downtime. ??Received 10 mg of Versed??and had 3 g keppra given. Unclear etiology at this time. CTH showing L frontal encephalomalacia but not acute pathology. Pt was reportedly off of antiepileptic medication prior to this which is likely cause however medication refill inconsistent with history. Also required levophed for pressure support briefly but now off of it. ?? Neuro/HEENT ?? #Endotracheally Intubated (Z97.8) on 11/16/24 #Sedated (R41.89) #Acute Metabolic Encephalopathy (G93.41) #Epilepsy ?? Presenting after witnessed seizure like activity. Elevated lactate 12. CTH Left frontal??area??with??significant encephalomalacia. ??Spoke with??radiology??who stated??that??this is most likely encephalomalacia versus new stroke. ??Patient reportedly had acute onset??ofseizures. ??Unclear at this time??for precipitating??event??was. Patient was??reportedly not having any??infectious symptoms leading up to this and no signs of infection at this time on labs/vitals.?His long term??staff?? stated that patient was coming off of??antiepileptic medication and had not recently been taking any antiepileptic medication for the past few months. However fill history suggests was filled this month. In terms of other etiologies no signs of ischemia??hyponatremia??or uremia.?? Urine toxicology??negative aside from inappropriately positive for benzos which was inappropriately positive. If pt was??taking excess benzos and??reduced dose this could??affect seizure thres hold.?? Patient is not on any other??medications that could??lower seizure threshold.??No other sources of trauma documented.?? Blood pressure has been well controlled and no significant HTN. ?? Plan: - Propofol for RAAS 0 - Fentanyl for COPT >2 - Ventilator care bundle - Daily SBT and SAT -Q2 neuro checks -Prolactin -Mag, phos ? Cardiovascular #Hypertension (I10) ?? Plan: - Levophed for MAPs >65; wean as tolerated - TTM for normothermia - HOLDING home anti-platelet and anti-coagulation for now - HOLDING home anti-hypertensives for now - digital content manager - EKG PRN ?? Pulmonary #Endotracheally Intubated (Z97.8) on / ?? Plan: - Ventilator care bundle - Daily SBT and SAT - SBT??_ - Chest Physical Therapy ?? Gastroenterology ?? no active issues Plan: -??_ - Monitor LFTs daily - NPO except for medications -GI ppx with protonix ?? Renal ?? #High anion gap metabolic acidosis #Lactic acidosis ?? High anion gap metabolic acidosis in the setting of lactic acidsosis 2/2 seizures. CK WNL. ?? Plan: - Follow up on kidney function; daily BMP - Avoid nephrotoxins - Renally dose medications - Follow-up on electrolytes and replete as necessary - Monitor I/O - Orellana catheter ?? MSK/Integ No active/acute issues. ?? Heme/Onc No active/acute issues. ?? Plan: - Daily CBC - Monitor for any signs/symptoms of bleeding - Transfuse if Hb <7 ?? Endocrine ?? #Type II Diabetes Mellitus (E11.9) #subclinical hypothyroidism TSH mildly elevated and T4 mildly reduced. In the setting of illness. ?? Plan: - Hold home diabetes regimen - Blood sugar level goal 140-180 -??blood sugar level goal 140-180 - SSI - Lantus - Hypoglycemia measures -A1c -repeat TSH with reflex T4 in 6 weeks??once out of the hospital ?? Infectious Disease no active issues ?? Quality Measures Code:??Full Code?? DVT prophylaxis:??_??pneumatic compression boots after normal scans no signs of bleeding can transition to heparin Diet:??NPOexcept for meds? Patient care discussed with Dr. Riaz Perez, DO Internal Medicine PGY-2 Pager [phone]? Histories Allergies Allergies ?(Active and Proposed Allergies Only) NKA? (Severity: Unknown severity, Onset: Unknown) ? Past Medical History/Problem List Active Problems(1) Obese class I ? Past Surgical History ?brain surgery ? Social History ?? nicotine use unclear how much ?? Family History No Family History documented. ? Medications Home Medications No medications documented.? Inpatient Medications Medications (5) Active SCHEDULED: (0) CONTINUOUS: (2) Fentanyl 1000mcg/100mL NaCL 1,000 mcg (FENTanyl 1000mcg / 100mL NaCl 1,000 mcg) ??1,000 mcg 100 mL,IV Infusion Propofol 10mg/mL Cont IV (100mL) 1,000 mg (Propofol 1% /100 mL 1,000 mg) ??1,000 mg 100 mL, IV Infusion PRN: (3) Bisacodyl 10 mg Suppository (Bisacodyl Supp) ??10 mg 1 supp, Rectally, 2 times a day Docusate Sodium 10 mg/mL Liquid UD (Colace Liquid) ??100 mg 10 mL, Orogastric Tube, 2 times a day Magnesium Hydroxide 8% Susp UD (Milk of Magnesia Liquid) ??30 mL, Orogastric Tube, 2 times a day ? Results Recent Labs BLOOD COUNT & DIFF WBC 9.0 k/mm3 ()?? 11/16/2024 21:17 RBC 3.84 m/mm3 (Low)?? 11/16/2024 21:17 Hgb 12.4 Gm/dL (Low)?? 11/16/2024 21:17 Hct 37.3 % (Low)?? 11/16/2024 21:17 MCV 97.1 femtoliters (High)?? 11/16/2024 21:17 MCH 32.3 pg ()?? 11/16/2024 21:17 MCHC 33.2 Gm/dL ()?? 11/16/2024 21:17 Platelet Count 201 k/mm3 ()?? 11/16/2024 21:17 RDW-SD 42.9 femtoliters ()?? 11/16/2024 21:17 MPV 9.8 femtoliters ()?? 11/16/2024 21:17 Nucleated RBC (Automated) 0.0 #/100 WBC'S ()?? 11/16/2024 21:17 Abs. NRBC 0.0 k/mm3 ()?? 11/16/2024 21:17 Abs. Neut 3.7 k/mm3 ()?? 11/16/2024 21:17 Abs. Lymph 4.2 k/mm3 (High)?? 11/16/2024 21:17 Abs. [place] 0.8 k/mm3 ()?? 11/16/2024 21:17 Abs. Eo 0.3 k/mm3 ()?? 11/16/2024 21:17 Abs. Baso 0.0 k/mm3 ()?? 11/16/2024 21:17 Neut % 40.8 % (Low)?? 11/16/2024 21:17 Lymph % 46.7 % (High)?? 11/16/2024 21:17 [place] % 8.3 % ()?? 11/16/2024 21:17 Eos % 3.1 % ()?? 11/16/2024 21:17 Baso % 0.4 % ()?? 11/16/2024 21:17 Hemoglobin (POC) POC Cartridge 12.2 Gm/dL (Low)?? 11/16/2024 20:46 Hematocrit (POC) POC Cartridge 36 % (Low)?? 11/16/2024 20:46 Imm Gran 0.7 % ()?? 11/16/2024 21:17 Abs. Imm Gran 0.1 k/mm3 ()?? 11/16/2024 21:17 ?? BLOOD GAS pH Venous (POC) POC Cartridge 7.21 (Low)?? 11/16/2024 20:46 pCO2 Venous (POC) POC Cartridge 31.6 mm Hg (Low)?? 11/16/2024 20:46 pO2 Venous (POC) POC Cartridge 28 mm Hg (Low)?? 11/16/2024 20:46 Est Bicarbonate (POC) POC Cartridge 12.6 mmol/L (Low)?? 11/16/2024 20:46 % O2 Sat Venous (POC) POC Cartridge 42 ()?? 11/16/2024 20:46 Base Excess (POC) POC Cartridge NEGATIVE 15 ()?? 11/16/2024 20:46 Specimen Type - Blood Gas VENOUS ()?? 11/16/2024 20:46 ?? CARDIAC High Sensitivity Troponin (HSTnT) 14 ng/L ()?? 11/16/2024 21:17 ?? CHEM GENERAL Sodium 141 mmol/L ()?? 11/16/2024 21:17 Potassium 4.3 mmol/L ()?? 11/16/2024 21:17 Chloride 107 mmol/L ()?? 11/16/2024 21:17 Bicarbonate Level 11 mmol/L (Low)?? 11/16/2024 21:17 Anion Gap 23 mmol/L (High)?? 11/16/2024 21:17 Sodium (POC) POC Cartridge 139 mmol/L ()?? 11/16/2024 20:46 Potassium (POC) POC Cartridge 4.9 mmol/L ()?? 11/16/2024 20:46 Glucose Level 190 mg/dL (High)?? 11/16/2024 21:17 Glucose (POC) POC Cartridge 186 (High)?? 11/16/2024 20:46 Glucose, POC 186 mg/dL (High)?? 11/16/2024 21:17 BUN 9 mg/dL ()?? 11/16/2024 21:17 Creatinine-Blood 0.98 mg/dL ()?? 11/16/2024 21:17 Estimated GFR Creatinine 59 ML/MIN/1.73 M2 ()?? 11/16/2024 21:17 Calcium 8.8 mg/dL ()?? 11/16/2024 21:17 Ionized Calcium (POC) POC Cartridge 1.18 mmol/L ()?? 11/16/2024 20:46 Protein, Total 6.1 Gm/dL (Low)?? 11/16/2024 21:17 Albumin 3.6 Gm/dL ()?? 11/16/2024 21:17 AG Ratio 1.4 ()?? 11/16/2024 21:17 Alkaline Phosphatase 89 units/L ()?? 11/16/2024 21:17 AST (SGOT) 17 units/L ()?? 11/16/2024 21:17 ALT (SGPT) 8 units/L ()?? 11/16/2024 21:17 Bilirubin, Total 0.2 mg/dL ()?? 11/16/2024 21:17 Lactate 12.4 mmol/L (Critical)?? 11/16/2024 21:17 ?? ENDOCRINE/TUMOR MARKER TSH 5.66 uIU/mL (High)?? 11/16/2024 21:17 Free T4 0.68 ng/dL (Low)?? 11/16/2024 21:17 ?? MISC. CHEMISTRY Hold Gel Top SPECIMEN DISCARDED AFTER 1 WEEK ()?? 11/16/2024 21:17 ?? TOXICOLOGY/TDM Barbiturate Screen, Urine NONE DETECTED ()?? 11/16/2024 22:30 Cannabinoid Screen, Urine NONE DETECTED ()?? 11/16/2024 22:30 Cocaine Metabolite Screen, Urine NONE DETECTED ()?? 11/16/2024 22:30 Benzodiazepine Screen, Urine POSITIVE (Abnormal)?? 11/16/2024 22:30 Amphetamine Screen, Urine NONE DETECTED ()?? 11/16/2024 22:30 Opiate Screen, Urine NONE DETECTED ()?? 11/16/2024 22:30 ?? URINE OTHER Est Creatinine Clearance 84.22 mL/min ()?? 11/17/2024 01:05 ?? VIROLOGY Influenza A PCR NEGATIVE ()?? 11/16/2024 22:30 Influenza B PCR NEGATIVE ()?? 11/16/2024 22:30 RSV PCR NEGATIVE ()?? 11/16/2024 22:30 COVID-19 PCR Specimen Source NASAL ()?? 11/16/2024 22:30 COVID-19 PCR Result NEGATIVE ()?? 11/16/2024 22:30 ? * Riaz RIVERA, Yamile Kebede: PERFORM Event Display: Admission Note Authored Date: [id number] ?? Supervising Attending Note ?? I have personally reviewed this patient and participated in the management plan outlined by the??resident. ?? Assessment: #AMS 2/2 epilepsy requiring intubation for airway protection, thought to be precipitated by??recentAED changes #Epilepsy #Shock, possibly 2/2 sedation vs distributive etiology, briefly requiring vasopressor support, resolved after administration of additional IVF #DMII #Left frontal encephalomalacia, noted on CT head and discussed with Radiology, formal head CT read pending ?? - Neurology consult for further seizure management. S/p 3g of Keppra. Obtain further collateral/medrec history??re recent outpatient AED use. Continue Q2h neuro checks. - Continue lung protective ventilation, wean to PSV as able - Continue analgosedation with propofol/fentanyl for now ?? Rest of plan per resident's note. ? Date of Service:?11/17/2024? I spent additional??35 minutes in performing critical care.?? The patient required critical care services due to??critical and medical diagnoses and problems listed below.??The threat to imminent deterioration of these conditions mandated critical care monitoring, observation and management. This critical care service was provided in supervision of house staff (residents and/or fellows taking care of the patient), and/or [id number] with an advanced practice provider yet independently provided critical care services with additional critical care time as documented above. ?? Critical care time reflects my personal work performing the following specific actions at the patient's bedside with the multidisciplinary team: ?? Critical care management included:??Active management of invasive mechanical ventilation, Continuous neurological assessment due to acute, impending, or ongoing neurologic compromise, Management of sedative infusions See chart documentation for additional details ?? Additional activities performed during the critical care time included: - Review of overnight and recent events - Review of medications, allergies, and vital signs - Serial data review - Ordering, interpreting, and reviewing diagnostic studies/lab tests - Clinical examination - High complexity medical decision-making ?? This time also includes time spent for documentation, but??does not include time spent in performing any separately billed procedures. ?? Yamile Mello MD Supervising Critical Care Medicine Attending Division of Pulmonary, and Critical Care Medicine, Department of Medicine, [facility]?? EKG study * Event Display: ECG 12-Lead Authored Date: Please click on pdf link to open report * Event Display: ECG 12-Lead Authored Date: Ventricular Rate: 67 BPM Atrial Rate: 67 BPM P-R Interval: 120 ms QRS Duration: 86 ms Q-T Interval: 404 ms QTC Calculation(Bazett): 426 ms P Rector: 53 degrees R Rector: 21 degrees T Rector: 72 degrees Normal sinus rhythm with sinus arrhythmia Normal ECG When compared with ECG of 17-Nov-2024 06:03, No significant change was found Confirmed by DOMO POP ([id number]) on 11/24/2024 8:32:24 AM [place]: DOMO POP * Event Display: ECG 12-Lead Authored Date: [id number] Please click on pdf link to open report * Event Display: ECG 12-Lead Authored Date: [id number] Ventricular Rate: 58 BPM Atrial Rate: 58 BPM P-R Interval: 126 ms QRS Duration: 80 ms Q-T Interval: 384 ms QTC Calculation(Bazett): 376 ms P Rector: 47 degrees R Rector: 16 degrees T Rector: 81 degrees Sinus bradycardia Otherwise normal ECG When compared with ECG of 16-Nov-2024 20:40, Vent. rate has decreased by 65 bpm Confirmed by SHANE BOLAÑOS ([id number]) on 11/17/2024 8:37:21 AM [place]: SHANE BOLAÑOS * Event Display: ECG 12-Lead Authored Date: [id number] Please click on pdf link to open report * Event Display: ECG 12-Lead Authored Date: [id number] Ventricular Rate: 123 BPM Atrial Rate: 123 BPM P-R Interval: 128 ms QRS Duration: 76 ms Q-T Interval: 330 ms QTC Calculation(Bazett): 472 ms P Rector: 59 degrees R Rector: 13 degrees T Rector: 74 degrees Sinus tachycardia Otherwise normal ECG No previous ECGs available Confirmed by Mike Pelayo ([id number]) on 11/17/2024 7:21:49 AM [place]: Mike Pelayo Heart * Event Display: Echocardiogram - Complete Authored Date: [id number] Transthoracic Echocardiography Report (TTE) Patient Demographics Patient Name CASSIE THAYER Date of Study 11/18/2024 Corporate Gender Male Facility Race Unknown .[id number] Ethnicity or Date of 1980 Height: 65.75 inches Age 44 year(s) Weight: 205.05 pounds Accession Number [id number] BSA: 2.02 m2 Room Number [id number] BMI: 33.35 kg/m2 Referring Wanda Pantoja MD Interpreting Hussein Guerrier MD Physician Physician Extractor Machine Operator Wilber [facility] Quin Indications Cardiac arrest. Clinical History Diabetes Mellitus. Obesity. Study Data Type of Study TTE procedure:Echo Complete-(Doppler, Colorflow) with Contrast. Procedure Information:Definity was administered by [place] [employer] Former . Study Date11/18/2024 Start Time: 06:55 AM Study Location: [facility] [place] Study Status: ICU/CCU Patient Status: Routine Technical Quality: Technically difficult due to patient on ventilator. Blood Pressure:147/100 mmHg EKG: Sinus with ectopy HR: 60 bpm Contrast Medium: Definity. Amount - 2 ml 2D Measurements LV Diastolic Dimension: 3.7 cm LV Systolic Dimension: 3.1 cm LV Septum Diastolic: 1 cm LV PW Diastolic: 0.9 cm AO Root Dimension: 3.1 cm LA Dimension: 3 cm LVOT Stroke Volume: 54.71 ml LVOT: 2.2 cm Stroke Volume Index27.08 ml/m2 Ascending Aorta:2.9 cm Cardiac Index:1.62 l/min/m2 Doppler Measurements AV Peak Velocity: 111 cm/s MV Peak E-Wave: 52.7 cm/s AV Peak Gradient: 4.93 mmHg MV Peak A-Wave: 64.3 cm/s MV E/A Ratio: 0.82 LVOT Peak Velocity: 84.8 cm/s MV P1/2t: 67 msec LVOT VTI14.4 cm MV Deceleration Time: 230 msec TR Velocity:250 cm/s MV Area (PHT): 3.28 cm2 TR Gradient:25 mmHg PV Peak Velocity: 66.5 cm/s E' Septal Velocity: 4.46 cm/s PV Peak Gradient: 1.77 mmHg E' Lateral Velocity: 6.64 cm/s E/Med E':[id number] E/Lat E':[id number] Cardiac Anatomy Left Ventricle/Interventricular Septum The left ventricle is poorly visualized. The left ventricular size is normal. Left ventricular wall thickness is normal. The LV systolic function is mildly reduced. The left ventricular ejection fraction is 43 % using a biplane Blanco's method. There is mild global hypokinesis with regional variation. Left Atrium/Interatrial Septum The left atrium is normal in size. Aortic Valve The aortic valve is trileaflet . The aortic valve leaflet opening is normal . There is no aortic stenosis. There is no significant aortic regurgitation. Mitral Valve The mitral valve is grossly normal. There is trace mitral regurgitation. Aorta The aortic root is normal in size. Right Ventricle The right ventricle is poorly visualized. The right ventricle is normal in size. Right Atrium The right atrium is poorly visualized. The right atrium is normal in size. Pulmonic Valve The pulmonic valve velocity is normal. Tricuspid Valve There is trace tricuspid valve regurgitation. Pumonary Artery An accurate pulmonary artery pressure could not be obtained. Venous Structures The inferior vena cava appears grossly normal. Inferior vena cava inspiratory collapse is blunted . Pericardium/Extracardiac There is no significant pericardial effusion. Summary The left ventricle is poorly visualized. The left ventricular size is normal. Left ventricular wall thickness is normal. The LV systolic function is mildly reduced. The left ventricular ejection fraction is 43 % using a biplane Blanco's method. There is mild global hypokinesis with regional variation. The right ventricle is poorly visualized. The right ventricle is normal in size. Comparison No prior study available for comparison. Signature * Event Display: Echocardiogram - Complete Authored Date: Cardiology * Event Display: Cardiac Rhythm Strips Authored Date: * Event Display: Cardiac Rhythm Strips Authored Date: * Event Display: Cardiac Rhythm Strips Authored Date: Hospital Progress note * Karly Rosario RN: MODIFY, PERFORM, MODIFY, MODIFY, SIGN, VERIFY Event Display: Progress Note Hospital Authored Date: Patient: CASSIE THYAER Age: 44 years Sex: Male : 1980 Associated Diagnoses: None Author: Karly Rosario RN Findings Problem Related to Alteration in Neurological : Alteration in Neurological Function/new 11/27/2024 9:00 EDT Alteration in Neuro status Related to Seizure Goals & Outcomes, Neurological Lab studies/diagnostic tests within pt specific limits, Pt is safe with transfers & activities, Pt will be discharged without infection, Pt will be hemodynamically stable, Pt will be Neurologically stable, Pt will become pain free with appropriate intervention, Pt will maintain intact skin integrity, Pt will remain free from injury, Pt will resume/maintain ad equate cardiac output, Pt will state importance of adhering to medication regime, Pt/caregiver willreceive psychosocial support as needed, Pt/caregiver will state understanding of rehab plan, Pt/caregiver will state strategies to reduce risk factors, Pt/caregiver will state understanding aspiration precautions, Pt/caregiver will state understanding dietary modifications, Pt/caregiver will state understanding of disease process, Pt/caregiver will state understanding of plan/goals of care, Pt/caregiver will state understanding of the D/C plan, Resolved problem, Goals/Outcomes met, Pt will be free from complications r/t seizure activity, Pt will be seizure controlled, Pt will remain free frominjury post seizure activity, Pt will return to baseline after post ictal phase, Pt/caregiver will state understanding of home management Interventions, Neurological Assess/monitor neurologic status, Assess/monitor VS per unit standards & prn, Call/Report variances in assessments to provider, Collaborate w/ provider to implement appropriate guidelines, Collaborate with Nutrition, Collaborate with provider re: medication regime, Document & Monitor O2 Sats; Administer O2 as ordered, Emergency airway equipment at bedside, Ident darrel psychosocial issues related to diagnosis/illness, If no bowel movement in 3 days activate bowelregime, [place] alternate means of communication, Keep patient's head & body in good alignment, Maintain patient safety if unsteady gait, Monitor for headaches, nausea, vomiting, Monitor speechfluency, aphasia, word finding difficulty, Physical assessment per unit standards, Provide emotional support to Pt/caregiver, Resolved problem, Interventions no longer in effect, Teach and encourage use of Incentive spirometer, Teach pt/caregiver on plan of care, treatment, s/s & meds, Teach pt/caregiver on use of pain scale Goals/Interventions, Neurological Yes Neurological, Problem Start 11/17/2024 5:32 Reviewed plan with, Neurological Patient Patient Progression, Neurological Pt progressing according to plan . Nursing Data Neurological Data. : Neurological Data. 11/27/2024 8:00 EDT Tongue Disposition Midline Neurological Symptoms History of seizures, Unsteady gait/Ataxia, Weakness or loss of muscle strength Level of Consciousness Full Consciousness Orientated to person, place, time Person, Place, Time, Event Hallucinations None Facial Symmetry Intact Characteristics of Speech Expressive aphasia, Expressive language difficulty Swallowing Difficulty None Pupil description, left Regular Pupil description, right Regular Pupil reaction, left Brisk Pupil reaction, right Brisk Pupil Size, Left 3 mm Pupil Size, Right 3 mm Strength LUE 5-Active movement against gravity & full resistance Strength RUE 5-Active movement against gravity & full resistance Strength LLE 5-Active movement against gravity & full resistance Strength RLE 5-Active movement against gravity & full resistance Tone LUE Normal Tone RUE Normal Tone LLE Normal Tone RLE Normal Sensation LUE Intact Sensation RUE Intact Sensation LLE Intact Sensation RLE Intact Movement LUE Spontaneous Movement RUE Spontaneous Movement LLE Spontaneous Movement RLE Spontaneous Gait Spastic, jerky, Unsteady Response Eye Opening Spontaneously Motor Response-Adult Obeys commands Verbal Response-Adult Oriented and converses [place] Coma Score 15 Neuro WNL except Eyes and Movements Conjugate gaze: Move in same direction at same speed Memory Short term memory deficits Swallow - Neuro Normal . Evaluation Patient A&Ox4, patient italian/maltese speaking enrollment representative used for assessment, speech clear but can be mumbled at times, face symmetrical, tongue midline. +perrl. Patient denies numbness, tingling, nausea, headache, blurry vision, double vision, and pain. Normal sinus rhythm on tele. Lung sounds clear. Bsx4, last bowel movement 11/25. Patient ambulating with assist to bathroom. Skin intact. TERAN 5/5. Taking pills whole with water. Bed locked in low position with bed alarm set, call cheng within reach, and patient safety maintained. No piv in place. Discharge instructions went over with internal combustion engineer. Patient left unit around 1030 via wheelchair with staff member and family member to go home. . * Therese Art RN: PERFORM, SIGN, VERIFY Event Display: Progress Note Hospital Authored Date: [id number] Patient: CASSIE THAYER Age: 44 years Sex: Male : 1980 Associated Diagnoses: None Author: Therese Art RN Findings Problem Related to Alteration in Neurological : Alteration in Neurological Function/new 11/26/2024 20:00 EDT Alteration in Neuro status Related to Seizure Goals & Outcomes, Neurological Lab studies/diagnostic tests within pt specific limits, Pt is safe with transfers & activities, Pt will be discharged without infection, Pt will be hemodynamically stable, Pt will be Neurologically stable, Pt will become pain free with appropriate intervention, Pt will maintain intact skin integrity, Pt will remain free from injury, Pt will resume/maintain ad equate cardiac output, Pt will state importance of adhering to medication regime, Pt/caregiver willreceive psychosocial support as needed, Pt/caregiver will state understanding of rehab plan, Pt/caregiver will state strategies to reduce risk factors, Pt/caregiver will state understanding aspiration precautions, Pt/caregiver will state understanding dietary modifications, Pt/caregiver will state understanding of disease process, Pt/caregiver will state understanding of plan/goals of care, Pt/caregiver will state understanding of the D/C plan, Resolved problem, Goals/Outcomes met, Pt will be free from complications r/t seizure activity, Pt will be seizure controlled, Pt will remain free frominjury post seizure activity, Pt will return to baseline after post ictal phase, Pt/caregiver will state understanding of home management Interventions, Neurological Assess/monitor for abnormal posturing, Assess/monitor for gaze pattern/extraocular movements, Assess/monitor for increased Intracranial Pressure, Assess/monitor neurologicstatus, Assess/monitor VS per unit standards & prn, Call/Report variances in assessments to provider, Collaborate w/ provider to implement appropriate guidelines BH Goals/Interventions, Neurological Yes Neurological, Problem Start 11/17/2024 5:32 Reviewed plan with, Neurological Patient Patient Progression, Neurological Pt progressing according to plan . Nursing Data Neurological Data. : Neurological Data. 11/26/2024 20:00 EDT Tongue Disposition Midline Neurological Symptoms History of seizures, Weakness or loss of muscle strength, Other: impulsive Level of Consciousness Full Consciousness Orientated to person, place, time Person, Place, Time Characteristics of Speech Other: expressive language difficulty Swallowing Difficulty None Pupil description, left Regular Pupil description, right Regular Pupil reaction, left Brisk Pupil reaction, right Brisk Strength LUE 5-Active movement against gravity & full resistance Strength RUE 5-Active movement against gravity & full resistance Strength LLE 5-Active movement against gravity & full resistance Strength RLE 5-Active movement against gravity & full resistance Tone LUE Normal Tone RUE Normal Tone LLE Normal Tone RLE Normal Sensation LUE Intact Sensation RUE Intact Sensation LLE Intact Sensation RLE Intact Movement LUE Spontaneous Movement RUE Spontaneous Movement LLE Spontaneous Movement RLE Spontaneous Gait Unable to assess Tremors None Response Eye Opening Spontaneously Motor Response-Adult Obeys commands Verbal Response-Adult Disoriented and converses Araceli Coma Score 14 Neuro WNL except Corneal/Blink Reflex Intact right, Intact left Headache None Memory Intact . Evaluation Patient received for care at 1900; VSS on room air, afebrile, alert and oriented x person, place and time but not to event. Speech garbled and mostly appropriate; some language finding difficulty on translation. Pt face symmetrical, tongue midline, eyes PERRLA with left gaze preference. Denies any h eadache, dizziness, changes in vision; denies numbness, tingling or pain. 5/5 strength to lower andupper extremities; impulsive within room. Tollerating swallowing pills whole with water. Please seebiophysical assessment for head to toe in CIS. Plan of care ongoing; safety parameters maintained. Call cheng left within reach... * Dov Hobson MD: PERFORM Event Display: Progress Note Hospital Authored Date: Patient: ??THAYER, CASSIE ? Age:??44 Years?Sex:??Male?:??1980?? Subjective Patient is seen and examined by the bedside.?? Has some dry cough No chest pain, SOB Review of Systems All systems reviewed, negative except for as mentioned above.?? Objective Vital Signs?? Temperature: 98.4 DegF (11/26/24 20:21:00) Temperature Route: Oral (11/26/24 20:21:00) Pulse Rate: 86 bpm (11/26/24 20:21:00) Respiratory Rate: 18 br/min (11/26/24 20:21:00) Systolic Blood Pressure: 130 mm Hg (11/26/24 20::00) Diastolic Blood Pressure:??88 mm Hg??High (11/26/24 20:21:00) Blood pressure sites: Arm, right (11/26/24 20:21:00) Mean Arterial Pressure: 102 mm Hg (11/26/24 20:21:00) Pulse Pressure: 42 mm Hg (11/26/24 20:21:00) Oxygen Saturation: 96 % (11/26/24 20:21:00) Liters per Minute: 3 L/min (11/26/24 04:12:00) Mode of Delivery (Oxygen): Room air (11/26/24::00) Early Warning Score: 0 (11/26/24:45:54) ? Physical Exam Constitutional: Alert, in no acute distress. Mental Status: Oriented to person, place and time. Eyes: Pupils are equal, round and reactive to light.?? Ear, Nose and Throat: Oropharynx clear, mucous membranes moist. ?? Neck: Supple, Full range of motion. Respiratory: Clear to auscultation and percussion.?? Cardiovascular: S1 S2 regular. No murmurs, rubs or gallops. Gastrointestinal: Abdomen soft, non-tender, non-distended.?? Neurologic:?? No focal neurological deficits.?? Moves all extremities spontaneously.? No significant change from prior physical exam since 11/25/24. _ Inpatient Medications Medications (21) Active SCHEDULED: (11) Benztropine 1 mg Tablet (benztropine 1 mg oral tablet) ??0.5 mg, By Mouth, 2 times a day Docusate Sodium 10 mg/mL Liquid UD (Colace Liquid) ??100 mg 10 mL, Orogastric Tube, 2 times a day Enoxaparin 40 mg Inj (Enoxaparin Inj) ??40 mg 0.4 mL, Subcutaneous Injection, Daily Insulin Glargine 100 units/mL Inj (Lantus Inj) ??10 units 0.1 mL, Subcutaneous Injection, Daily at bedtime Insulin Lispro 100 units/mL Inj (Insulin LISPRO Sliding Scale) ??2-10 units, Subcutaneous Injection, 3 times a day before meals Lacosamide 100 mg Tablet (Lacosamide Tablet) ??100 mg, By Mouth, 2 times a day Magnesium Oxide 400 mg Tablet (magnesium oxide 400 mg oral tablet) ??400 mg, By Mouth, 2 times a day Metoprolol 25 mg XL Tablet (Toprol XL 25 mg oral tablet, extended release) ??25 mg, By Mouth, Daily Phos-NaK Oral Powder ??1 pack/packet, By Mouth, 2 times a day Risperidone 1 mg Tablet (risperiDONE 1 mg oral tablet) ??3 mg, Orogastric Tube, 2 times a day Valproic Acid 250 mg/5 mL Syrup UD (Valproic Acid Liquid) ??625 mg 12.5 mL, By Mouth, Every 6 hours CONTINUOUS: (0) PRN: (10) Acetaminophen 325 mg Tablet (Tylenol 325 mg oral tablet) ??650 mg, By Mouth, Every 6 hours Bisacodyl 10 mg Suppository (Bisacodyl Supp) ??10 mg 1 supp, Rectally, 2 times a day Dextromethorphan-Guaifenesin 20 mg-200 mg/10 mL Liqu UD (Robitussin DM Liquid) ??5 mL, By Mouth, Every 4 hours Dextrose Inj Syringe (Dextrose 50% Inj Syringe (25Gm)) ??12.5 Gm, IV Push Slowly, Every 20 minutes Dextrose Inj Syringe (Dextrose 50% Inj Syringe (25Gm)) ??25 Gm, IV Push Slowly, Every 15 minutes Glucagon 1 mg Inj (Glucagon Inj) ??1 mg, Intramuscular, Once Glucose 40% Gel (15 Gm) (Glucose Gel) ??30 Gm, By Mouth, Every 20 minutes Magnesium Hydroxide 8% Susp UD (Milk of Magnesia Liquid) ??30 mL, Orogastric Tube, 2 times a day Polyethylene Glycol 17 Gm Powder (MiraLax Powder) ??17 Gm 1 pack/packet, By Mouth, Daily Sodium Phosphate 3 mmol/mL IVPB (Sodium Phosphate IVPB) ??15 mmol 5 mL, IVPB, Every 4 hours ? Results Abnormal Labs ?? CHEM GENERAL Glucose, POC?241 mg/dL (High)?11/26/2024 20:44 ?? Note: Critical results are displayed in red. ? Assessment/Plan Diagnoses Altered mental status ??(R41.82) Lactic acidosis ??(E87.20) Respiratory acidosis ??(E87.29) Seizure ??(R56.9) Seizures ??(R56.9) ?44-year-old male medical history of epilepsy bipolar disorder, autism, schizophrenia, type 2 diabetes mellitus, presented via EMS after having seizure- like activity found outside of his apartment around 1899.??Came in as a resuscitation and had CPR started immediately.??He received 10 mg of Versed and per EMS was noted to have left??eye deviation at that time.??GCS on arrival 3.??Given patient's lack of protection of airway he was intubated and given 3 g of Keppra for seizure prophylaxis.??Hewas briefly hypotensive and received 1 L of IV fluids and briefly required Levophed 0.05 mcg/kg/minwhich led to normalization of his blood pressure.??He is now off of pressor medications.?CT head, CT C-spine???no acute changes. CT chest without contrast, CT T-spine and L-spine 11/17 ?Small bilateral pleural effusions with adjacent compressive atelectasis. Probable right lower lobe pneumonia. Mild interlobular septal thickening suggesting interstitial edema. ??Also nondisplaced fracture??. In T5, T6, L1-L3, multiple ribs??noticed.?Neurology was consulted , VEEG performed. no seizures.. Transferred out of ICU 11/21. No further acute??issues. ? Seizure disorder Status epilepticus/breakthrough seizures; likely in the setting of AED noncompliance since has not filled lacosamide Rx since june CT head??shows??encephalomalacia??from previous??brain surgery due to meningioma.?? Lacosamide 100 mg twice daily,??valproic acid??625 mg every 6 hours.? Cardiac arrest Cardiomyopathy EF 43% global hypokinesis. cardiology consulted for new HF, low EF on echo, no previous for comparison Continue metoprolol 25xl, consider uptitrating if persistently tachycardic Follow-up as outpatient with cardiology, last seen??11/19 11/24, overnight 5 sec sinus pause, no further??events after that Continue cardiac monitoring. ?? Aspiration pneumonia?? Completed 5 days of ceftriaxone, last dose was 11/21 Now with cough, CXR 11/22 no acute changes Respiratory pathogen panel negative CPT ordered for mucus clearance Cough syrup as needed Also pulm rehab evaluated, no need for home O2 on 11/26 ?? Bipolar d/o Autism c/w??benztropine, risperidone ? Multiple thoracic and lumbar vertebral fracture Multiple rib fracture Seen by neurosurgery 11/17 if these are true fractures they are all stable fractures.?? No spinal precautions required?? no bracing required no additional imaging needed no routine neurosurgical follow up.? Hypophosphatemia Monitor and replace as needed ?? Paraphimosis Reduced in icu by urology using sedation. no further issues. ?? Diet: Dental soft DVT ppx: Enoxaparin Code status: full HCP: No one listed.?? Both of patient's??healthcare proxy are .? Dispo:?? PT cleared for home with services. Patient is from shared living facility. All paper are signed. Meds??re-conciled and sent to [facility] [place] tomorrow??AM.? (This document has been dictated using Nosto dictation software. Please do not hesitate to contactthe author for clarification of any unintentional errors should it be needed.) Consult note * Mike Parada MD, I: PERFORM, SIGN, VERIFY Event Display: Consultation Note Authored Date: [id number] Patient: CASSIE THAYER Age: 44 years Sex: Male : 1980 Associated Diagnoses: None Author: Mike Parada MD, I DATE: 11/20/24 REASON FOR CONSULTATION: paraphimosis History of Present Illness 44yo M with epilepsy, schizophrenia, bipolar disorder and autism admitted to ICU for seizures. While intubated he had a orellana which has since been removed. Urology was consulted this AM for swollen penis. When I went to go examine patient, this was clearly a paraphimosis and very tender to palpation. Review of Systems Constitutional: No weight loss, fever, chills, weakness or fatigue. Allergy/Immune: Denies any Eczema or hives Eyes: No visual loss, blurred vision, double vision or yellow sclera ENT: No hearing loss, sneezing, congestion, runny nose or sore throat. Respiratory: No shortness of breath, cough or sputum production. Cardiovascular: No chest pain, chest pressure or chest discomfort. No palpitations or pedal edema. Gastrointestinal: No anorexia, nausea, vomiting or diarrhea. No abdominal pain or blood in stool. Genitourinary: No burning micturition. No urinary frequency or incontinence. Neurologic: No headache, dizziness, syncope, unilateral weakness, ataxia, numbness or tingling in the extremities. No change in bowel or bladder control. Musculoskeletal: No muscle pain, back pain, joint pain or stiffness. Hematologic/Lymphatics: No bleeding or bruising. No painful lymph nodes. Skin: No rash or itching. Endocrine: No reports of sweating. No cold or heat intolerance. No polyuria or polydipsia. Psychiatric: No depression or anxiety. All Other ROS: negative per HPI. Health Status Allergies (Active and Proposed Allergies Only) NKA (Severity: Unknown severity, Onset: Unknown) Medications Atorvastatin: 20 mg = 1 tablet, By Mouth, Daily Baclofen: 10 mg = 1 tablet, By Mouth, 3 times a day Benztropine: 0.5 mg = 0.5 tablet, By Mouth, 2 times a day Benztropine: 1 mg = 1 tablet, By Mouth, 2 times a day BusPIRone: 30 mg = 1 tablet, By Mouth, 2 times a day Divalproex Sodium: 1,500 mg = 3 tablet, By Mouth, Daily at bedtime Divalproex Sodium: 1,000 mg = 2 tablet, By Mouth, 2 times a day Durable Medical Equipment: See Instructions, use 3x a day to clean skin to when checking blood glucose Durable Medical Equipment (BD Ultrafine [id number], 1/2 ml Syringe): See Instructions, Use syringe to inject Lantus daily, E11.65 Durable Medical Equipment: See Instructions, Use test strips to check blood glucose 2x a day, E11.65, Durable Medical Equipment: See Instructions, test Bg once daily, E11.9 Durable Medical Equipment (Prodify lancets E 11.65): See Instructions, Use 4/ day Durable Medical Equipment: See Instructions, once daily injections.1mo. Durable Medical Equipment: See Instructions, 2 TIMES A DAY Durable Medical Equipment: See Instructions, use as directed for Type 1 Diabetes Mellitus Durable Medical Equipment: See Instructions, use as directed for Type 1 Diabetes Mellitus Durable Medical Equipment: See Instructions, 3 TIMES A DAY Durable Medical Equipment: See Instructions, 3 TIMES A DAY Durable Medical Equipment: See Instructions, 3 TIMES A DAY Durable Medical Equipment: See Instructions, 3 TIMES A BEFORE MEAL Durable Medical Equipment: See Instructions, Use lancets to check blood glucose 2x a day, E11.65 Gemfibrozil: 600 mg = 1 tablet, By Mouth, 2 times a day Ibuprofen: 600 mg = 1 tablet, By Mouth, 4 times a day Insulin Glargine: 10 units, Subcutaneous Injection, Once Insulin Glargine: See Instructions, INJECT 20 UNITS SUBCUTANEOUSLY IN THE MORNING BEFORE BREAKFAST. Insulin Glargine: 8 units, Subcutaneous Infusion, Daily, Dx Type 2 DM Lacosamide: 100 mg = 1 tablet, By Mouth, Daily at bedtime, MassPat checked Lacosamide: 150 mg = 1 tablet, By Mouth, Daily in AM, MassPat checked Metformin: 1,000 mg = 1 tablet, By Mouth, 2 times a day Metformin: 1,000 mg = 1 tablet, By Mouth, 2 times a day, with meals Miscellaneous Rx (Advocate lancets): See Instructions, use 1-2 /day Miscellaneous Rx (PRODIGY TWIST TOP 28G LANCET): See Instructions, USE 4 TIMES DAILY DIRECTED. Miscellaneous Rx (FREESTYLE LITE TEST STRIP): See Instructions, USE TEST STRIPS TO CHECK BLOOD GLUCOSE 2X A DAY, E11.65, Miscellaneous Rx (cogentin 1 mg) Miscellaneous Rx (Advocate meter test strips): See Instructions, use 1-2 /day Miscellaneous Rx (Advocate glucometer): See Instructions, use 1-2 times a day Miscellaneous Rx (Prodigy Teststrips): See Instructions, Use 4/ day . ICD : E 11.65 Miscellaneous Rx (Prodigy glucoemter.): See Instructions, test 4 times a Phan 1165 Risperidone: 3 mg = 1 tablet, By Mouth, 2 times a day Risperidone: 0.5 mg = 1 tablet, By Mouth, Daily in AM Trazodone: 75 mg = 1.5 tablet, By Mouth, Daily at bedtime Valproic Acid: 250 mg = 5 mL, By Mouth, 3 times a day Ziprasidone: 80 mg = 1 capsule, By Mouth, 2 times a day Problems Abnormal behavior Obese class I Sleep apnea T2DM (type 2 diabetes mellitus) Family History No family history recorded. Social History Tobacco Details: Former smoker, Other: NON SMOKER SINCE 11/08/2014. Details: Current every day smoker Physical Examination Vital signs Temperature 99.1 (12:11) Systolic Blood Pressure 154 (12:12) Diastolic Blood Pressure 91 (12:12) Pulse 112 (12:12) SpO2 90 (12:12) Respiratory Rate 22 (12:12) Constitutional: Awake and alert in no acute distress. Head: Normocephalic, atraumatic Chest: Non labored respiration. Cardiovascular: Heart regular rate. Abdomen: Nondistended. Soft. Nontender. : paraphimosis Results Review CHEM GENERAL Sodium 141 mmol/L () 11/19/2024 16:42 Potassium 3.7 mmol/L () 11/19/2024 16:42 Chloride 107 mmol/L () 11/19/2024 16:42 Bicarbonate Level 23 mmol/L () 11/19/2024 16:42 Anion Gap 11 mmol/L () 11/19/2024 16:42 Glucose Level 105 mg/dL (High) 11/19/2024 03:02 Glucose, POC 163 mg/dL (High) 11/20/2024 02:44 BUN 9 mg/dL () 11/19/2024 03:02 Creatinine-Blood 0.83 mg/dL () 11/19/2024 03:02 Estimated GFR Creatinine 109 ML/MIN/1.73 M2 () 11/19/2024 03:02 Calcium 9.6 mg/dL () 11/19/2024 03:02 Phosphorus 2.9 mg/dL () 11/19/2024 03:02 Magnesium 1.7 mg/dL () 11/19/2024 03:02 Protein, Total 5.6 Gm/dL (Low) 11/19/2024 03:02 Albumin 3.1 Gm/dL (Low) 11/19/2024 03:02 AG Ratio 1.2 () 11/19/2024 03:02 Alkaline Phosphatase 68 units/L () 11/19/2024 03:02 AST (SGOT) 15 units/L () 11/19/2024 03:02 ALT (SGPT) 9 units/L () 11/19/2024 03:02 Bilirubin, Total 0.6 mg/dL () 11/19/2024 03:02 URINE OTHER Est Creatinine Clearance 99.44 mL/min () 11/19/2024 04:20 Impression and Plan Provider Notifications 44yo M in the ICU with paraphimosis. I recommend paraphimosis. Patient is not able to tolerated awake reduction. Will discuss with ICU for conscious sedation. * Pete RIVERA, Bk: PERFORM Pete RIVERA, Bk: PERFORM, MODIFY Bk Freeman MD: MODIFY Event Display: Consultation Note Authored Date: [id number] Patient: ??CASSIE THAYER ? Age:??44 Years?Sex:??Male?:??1980?? Indication for Consult Unresponsive History of Present Illness/Interval History ??44-year-old male past medical history of epilepsy bipolar disorder, autism, schizophrenia, type 2diabetes mellitus, presented via EMS after having seizure- like activity found outside of his apartment as well as possible cardiac arrest (received CPR, unclear if there was actual arrest).??At the??time of??admission??patient was placed??in??ICU and??briefly intubated and started on??pressors. He was also??optimized on antiepileptics during this time. He is now off of pressor medication. Neurology was consulted, VEEG performed. no seizures. He is??now off EEG and extubated. He continues to be on??NC at 5-6L.? Echo done yesterday showed the following:?? The left ventricle is poorly visualized. The left ventricular size is ??normal. Left ventricular wall thickness is normal. The LV systolic function ??is mildly reduced. The left ventricular ejection fraction is 43 % using a ??biplane Blanco's method. There is mild global hypokinesis with regional ??variation.??The right ventricle is poorly visualized. The right ventricle is normal in size. ?? On this afternoon's encounter the patient is feeling well. He denies any chest pain. He states his breathing is so-so . He denies any fevers, chills, or headaches. No N/V/D/C, no dysuria or hematuria. He is a tobacco??smoker, roughly 1-3 per day for many years, he also drinks roughly 1 alcoholic beverage per day. He denies any other recreational drugs.? Hx was difficult to obtain due to sedation.?? Review of Systems A full review of systems was completed and is otherwise negative except as mentioned in history of present illness. Physical Exam Vitals & Measurements T:??98.3?F?? HR:??97??(Monitored)?? RR:??24?? BP:??133/99?? SpO2:??94%?? HT:??167??cm?? WT:??89.7??kg?? BMI:??33.63?? Weight lb/oz: 197 lb 12 oz General: No acute distress HEENT: EOMI, mucous membranes moist CV: RRR S1 S2 present. No murmurs, gallops, rubs appreciated. No JVD. No edema. Respiratory: All gonzalez clear to auscultation bilaterally. No wheezes, rales, rhonchi appreciated. Nasal cannula present Abdominal: Soft, nontender. No rebound tenderness. Bowel sounds noted all four quadrants. : No suprapubic tenderness. Neuro: Sedated, able to answer questions. Moving upper and lower extremities. No gross neurologicaldeficits Skin: No acute lesions, wounds, rashes. Intake and Output Today's Intake Total? 50?? Today's Output Total? 2100?? Today's Urine Voided? 2099?? Today's Balance?-2049?? Yesterday's Intake Total?772?? Yesterday's Output Total? 1600?? Yesterday's Urine Catheter?500?? Yesterday's Urine Voided? 1100?? Yesterday's Balance? -828?? Clinical Range's Intake Total? 2965?? Clinical Range's Output Total? 6995?? Clinical Range's Total OG Output?300?? Clinical Range's Total Urine Catheter? 3495?? Clinical Range's Total Urine Voided? 3200?? Clinical Range's Balance ?-4030?? 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 Type 2 diabetes Developmental delay with epilepsy onset age 4 Bipolar disorder Schizophrenia MCKENNA on CPAP ?? 44-year-old male past medical history of epilepsy bipolar disorder, autism, schizophrenia, type 2 diabetes mellitus, presented via EMS after having seizure- like activity found outside of his apartment as well as cardiac arrest at which point resuscitated. At the??time of??admission??patient was placed??in??ICU and??briefly intubated and started on??pressors. He was also??optimized on antiepileptics during this time. He is now off of pressor medication. Neurology was consulted, VEEG performed. no seizures. He is??now off EEG and extubated. He continues to be on??NC at 5-6L.?? Patient's Echo showed evidence of reduced ejection fraction with??mild global hypokinesis with regional??variation. Negative troponins.??Patient euvolemic on exam, breathing comfortably on NC.?? After review of recent CT scan which showed no evidence of coronary artery calcification as well asecho findings and normal EKG, patient's cardiac condition most likely related to stress cardiomyopathy.? Recommendations:?? Start 25xl metoprolol daily If BP stable can start low dose losartan Follow up outpatient for repeat Echo? Cardiology will sign off. Please reach out for further questions. ?? Assisted in documentation by Leno Devlin, MS4, [facility]? Patient was discussed with Dr. Bolaños ?? Bk Freeman MD Cardiovascular Disease Fellow PGY-4 [facility] Pager #[phone] Allergies NKA Home Medications Atorvastatin: 20 mg = 1 tablet, By Mouth, Daily Baclofen: 10 mg = 1 tablet, By Mouth, 3 times a day Benztropine: 0.5 mg = 0.5 tablet, By Mouth, 2 times a day Benztropine: 1 mg = 1 tablet, By Mouth, 2 times a day BusPIRone: 30 mg = 1 tablet, By Mouth, 2 times a day Divalproex Sodium: 1,500 mg = 3 tablet, By Mouth, Daily at bedtime Divalproex Sodium: 1,000 mg = 2 tablet, By Mouth, 2 times a day Durable Medical Equipment: See Instructions, use 3x a day to clean skin to when checking blood glucose Durable Medical Equipment (BD Ultrafine [id number], 1/2 ml Syringe): See Instructions, Use syringe to inject Lantus daily, E11.65 Durable Medical Equipment: See Instructions, Use test strips to check blood glucose 2x a day, E11.65, Durable Medical Equipment: See Instructions, test Bg once daily, E11.9 Durable Medical Equipment (Prodify lancets E 11.65): See Instructions, Use 4/ day Durable Medical Equipment: See Instructions, once daily injections.1mo. Durable Medical Equipment: See Instructions, 2 TIMES A DAY Durable Medical Equipment: See Instructions, use as directed for Type 1 Diabetes Mellitus Durable Medical Equipment: See Instructions, use as directed for Type 1 Diabetes Mellitus Durable Medical Equipment: See Instructions, 3 TIMES A DAY Durable Medical Equipment: See Instructions, 3 TIMES A DAY Durable Medical Equipment: See Instructions, 3 TIMES A DAY Durable Medical Equipment: See Instructions, 3 TIMES A BEFORE MEAL Durable Medical Equipment: See Instructions, Use lancets to check blood glucose 2x a day, E11.65 Gemfibrozil: 600 mg = 1 tablet, By Mouth, 2 times a day Ibuprofen: 600 mg = 1 tablet, By Mouth, 4 times a day Insulin Glargine: 10 units, Subcutaneous Injection, Once Insulin Glargine: See Instructions, INJECT 20 UNITS SUBCUTANEOUSLY IN THE MORNING BEFORE BREAKFAST. Insulin Glargine: 8 units, Subcutaneous Infusion, Daily, Dx Type 2 DM Lacosamide: 100 mg = 1 tablet, By Mouth, Daily at bedtime, MassPat checked Lacosamide: 150 mg = 1 tablet, By Mouth, Daily in AM, MassPat checked Metformin: 1,000 mg = 1 tablet, By Mouth, 2 times a day Metformin: 1,000 mg = 1 tablet, By Mouth, 2 times a day, with meals Miscellaneous Rx (Advocate lancets): See Instructions, use 1-2 /day Miscellaneous Rx (PRODIGY TWIST TOP 28G LANCET): See Instructions, USE 4 TIMES DAILY DIRECTED. Miscellaneous Rx (FREESTYLE LITE TEST STRIP): See Instructions, USE TEST STRIPS TO CHECK BLOOD GLUCOSE 2X A DAY, E11.65, Miscellaneous Rx (cogentin 1 mg) Miscellaneous Rx (Advocate meter test strips): See Instructions, use 1-2 /day Miscellaneous Rx (Advocate glucometer): See Instructions, use 1-2 times a day Miscellaneous Rx (Prodigy Teststrips): See Instructions, Use 4/ day . ICD : E 11.65 Miscellaneous Rx (Prodigy glucoemter.): See Instructions, test 4 times ??a Phan 11.65 Risperidone: 3 mg = 1 tablet, By Mouth, 2 times a day Risperidone: 0.5 mg = 1 tablet, By Mouth, Daily in AM Trazodone: 75 mg = 1.5 tablet, By Mouth, Daily at bedtime Valproic Acid: 250 mg = 5 mL, By Mouth, 3 times a day Ziprasidone: 80 mg = 1 capsule, By Mouth, 2 times a day Hospital Medications Medications (18) Active SCHEDULED: (8) Benztropine 1 mg Tablet (benztropine 1 mg oral tablet) ??0.5 mg, By Mouth, 2 times a day Ceftriaxone 1 Gm Inj (Ceftriaxone Inj) ??1 Gm, IVPB, Every 24 hours Docusate Sodium 10 mg/mL Liquid UD (Colace Liquid) ??100 mg 10 mL, Orogastric Tube, 2 times a day Enoxaparin 40 mg Inj (Enoxaparin Inj) ??40 mg 0.4 mL, Subcutaneous Injection, Daily Insulin Lispro 100 units/mL Inj (Insulin LISPRO Sliding Scale) ??2-10 units, Subcutaneous Injection, Every 6 hours Lacosamide 200 mg IVPB (Lacosamide Inj) ??100 mg 10 mL, IV Push Slowly, Every 12 hours Risperidone 1 mg Tablet (risperiDONE 1 mg oral tablet) ??3 mg, Orogastric Tube, 2 times a day Valproic Acid Sodium 500 mg IVPB (Depacon IVPB) ??625 mg 6.25 mL, IVPB, Every 6 hours CONTINUOUS: (3) Dexmedetomidine 400 mcg / 100 mL NaCl 400 mcg (Precedex 400 mcg / 100 mL NaCl (Titrate) 400 mcg) ??400 mcg 100 mL, IV Infusion Fentanyl 1000mcg/100mL NaCL 1,000 mcg (FENTanyl 1000mcg / 100mL NaCl 1,000 mcg) ??1,000 mcg 100 mL,IV Infusion Propofol 10mg/mL Cont IV (100mL) 1,000 mg (Propofol 1% /100 mL 1,000 mg) ??1,000 mg 100 mL, IV Infusion PRN: (7) Bisacodyl 10 mg Suppository (Bisacodyl Supp) ??10 mg 1 supp, Rectally, 2 times a day Dextrose Inj Syringe (Dextrose 50% Inj Syringe (25Gm)) ??12.5 Gm, IV Push Slowly, Every 20 minutes Dextrose Inj Syringe (Dextrose 50% Inj Syringe (25Gm)) ??25 Gm, IV Push Slowly, Every 15 minutes Glucagon 1 mg Inj (Glucagon Inj) ??1 mg, Intramuscular, Once Glucose 40% Gel (15 Gm) (Glucose Gel) ??30 Gm, By Mouth, Every 20 minutes Magnesium Hydroxide 8% Susp UD (Milk of Magnesia Liquid) ??30 mL, Orogastric Tube, 2 times a day Sodium Phosphate 3 mmol/mL IVPB (Sodium Phosphate IVPB) ??15 mmol 5 mL, IVPB, Every 4 hours Lab Results Cardiology Labs Blood Count & Diff COAG?? General Chemistry?? Cardiac?? Endocrine/Tumor Marker?? WBC: 7.2 k/mm3 (11/17/24) INR: 1.1 (11/17/24) Sodium: 141 mmol/L (11/19/24) Bilirubin, Total: 0.6 mg/dL (11/19/24) Free T4:??0.68 ng/dL??Low (11/16/24) RBC:??3.8 m/mm3??Low (11/17/24) Protime (PT):??11.7 seconds??High (11/17/24) Potassium: 4 mmol/L (11/19/24) CK, Total: 184 units/L (11/16/24) ?? Hgb:??12.1 Gm/dL??Low (11/17/24) ?? Chloride:??111 mmol/L??High (11/19/24) ? Hct:??35.6 %??Low (11/17/24) ?? Bicarbonate Level: 24 mmol/L (11/19/24) ? MCV: 93.7 femtoliters (11/17/24) ?? Anion Gap: 6 mmol/L (11/19/24) ? Platelet Count: 206 k/mm3 (11/17/24) ?? Glucose Level:??105 mg/dL??High (11/19/24) ? Hemoglobin A1C (Monitoring):??6.6 %??High (11/17/24) ? BUN: 9 mg/dL (11/19/24) ? Creatinine-Blood: 0.83 mg/dL (11/19/24) ? Estimated GFR Creatinine: 109 ML/MIN/1.73 M2 (11/19/24) ? Calcium: 9.6 mg/dL (11/19/24) ? Magnesium: 1.7 mg/dL (11/19/24) ? Protein, Total:??5.6 Gm/dL??Low (11/19/24) ? Albumin:??3.1 Gm/dL??Low (11/19/24) ? Alkaline Phosphatase: 68 units/L (11/19/24) ? AST (SGOT): 15 units/L (11/19/24) ? ALT (SGPT): 9 units/L (11/19/24) ? Diagnostic Impression ECG ECG 12-Lead ?? 06:03:07 Ventricular Rate: 58 BPM Atrial Rate: 58 BPM P-R Interval: 126 ms QRS Duration: 80 ms Q-T Interval: 384 ms QTC Calculation(Bazett): 376 ms P Rector: 47 degrees R Rector: 16 degrees T Rector: 81 degrees Sinus bradycardia Otherwise normal ECG When compared with ECG of 16-Nov-2024 20:40, Vent. rate has decreased by 65 bpm Confirmed ?? Signed By: Shane Bolaños MD ?? ECG 12-Lead ?? 06:03:07 Please click on pdf link to open report ?? Signed By: Shane Bolaños MD Echo Echocardiogram - Complete ?? 06:55:37 Summary The left ventricle is poorly visualized. The left ventricular size is normal. Left ventricular wall thickness is normal. The LV systolic function is mildly reduced. The left ventricular ejection fraction is 43 % using a biplane Blanco???s method. There is mild global hypokinesis with regional variation. The right ventricle is poorly visualized. The right ventricle is normal in size. ?? Comparison No prior study available for comparison. ?? Signature ?? Signed By: Luke Savage MD Problem List/Past Medical History Ongoing Abnormal behavior Obese class I Sleep apnea T2DM (type 2 diabetes mellitus) Procedure/Surgical History No qualifying data available. Follow-Up Appointments Added Follow Up ?Time Frame ?Comments Alannah RIVERA, Jacob Abdalla?01/22/2025 08:45 Social History Tobacco Former smoker, Other: NON SMOKER SINCE 11/08/2014. Family History No family history recorded. * Shane Bolaños MD: PERFORM Event Display: Consultation Note Authored Date: Attending Attestation:??I have seen and evaluated this patient. ??I have discussed the case and itsmanagement with the fellow and agree with the findings and plan as documented in the fellow???s note. * Shonna Velázquez: PERFORM, MODIFY Event Display: Consultation Note Authored Date: Patient: ??CASSIE THAYER ? Age:??44 Years?Sex:??Male?:??1980?? Chief Complaint/Reason for Consult Unresponsive History of Present Illness 44-year-old male old male with a past medical history of seizures, bipolar disorder, schizophrenia,type 2 diabetes mellitus, who presented??to the emergency department via EMS as a resuscitation forseizure activity after patient was found on the ground outside of his apartment.?? Admitted in ICU for status epilepticus.?? CT scans with possible thoracic fractures for which neurosurgery is consulted. He remains intubated and sedated.?? Review of Systems unable to obtain due to clinical status?? Physical Exam Vitals & Measurements T:??98.5?F?? HR:??77??(Monitored)?? RR:??25?? BP:??117/86?? SpO2:??95%?? HT:??167??cm?? WT:??93.8??kg?? BMI:??33.63?? intubated?? sedated?? eyes are upward and out?? does not open eyes to voice or sternal rub?? does not follow commands?? brisk withdrawal in??all extremities to nail bed pressure?? Assessment/Plan Assessment:??44yoM presents after seizure activity and is in ICU for status epilepticus. Neurosurgery called for possible thoracic fractures. ?? CT read?? Thoracic spine: *??Questionable Nondisplaced T5 vertebral body fracture. *??Questionable Minimally displaced right T6 transverse process fracture. Questionable Nondisplacedfracture of the right T5 and T6 lamina.?? *??Questionable Nondisplaced fracture of the left T2 lamina. *??Questionable nondisplaced right T4, T5, and T7, T9, T11 transverse process fracture.? Lumbar spine: *??Questionable Nondisplaced left L1-L3 transverse process fracture *??Questionable Nondisplaced right L1 transverse process fracture. ? If these are true fractures they are all stable fractures.?? No spinal precautions required?? no bracing required no additional imaging needed no routine neurosurgical follow up.? D/W: Dr Perdomo? Total Time Spent I personally spent a total of 45 minutes, including both [id number] and tay-cuka-hb-face time on the date of the encounter, addressing the above diagnoses. Problem List/Past Medical History Ongoing Obese class I Procedure/Surgical History No qualifying data available. Home Medications Atorvastatin: 20 mg = 1 tablet, By Mouth, Daily Benztropine: 0.5 mg = 0.5 tablet, By Mouth, 2 times a day Gemfibrozil: 600 mg = 1 tablet, By Mouth, 2 times a day Insulin Glargine: 10 units, Subcutaneous Injection, Once Metformin: 1,000 mg = 1 tablet, By Mouth, 2 times a day Risperidone: 3 mg = 1 tablet, By Mouth, 2 times a day Valproic Acid: 250 mg = 5 mL, By Mouth, 3 times a day Allergies NKA Family History No family history recorded. Radiology CT personally reviewed Note * Karly Rosario RN: PERFORM Event Display: Discharge/Transfer Note Hospital Authored Date: [id number] Nursing Discharge Note Entered On: 11/27/2024 14:24 EDT Performed On: 11/27/2024 10:34 EDT by Karly Rosario RN Nursing Discharge Note 2 Discharge Time : 11/27/2024 10:34 EDT Discharge Level of Care at Discharge : Home/Snf/Foster Care Patient Left Unit Via : Wheelchair Patient Accompanied Off Unit with : Responsible adult DC Instructions Provided & Signed by Pt : Yes Patient Understands D/C Instructions : Yes Patient Instructions Discharge Signed : Yes Did Pt have Specialty Bed or Wound Vac : No Karly Rosario RN - 11/27/2024 14:24 EDT * Linette RIVERA, Dex Pappas: PERFORM Event Display: Discharge/Transfer Note Hospital Authored Date: [id number] Patient: ??CASSIE THAYER ? Age:??44 Years?Sex:??Male?:??1980?? Patient Information Discharge Location: [facility] Primary Care Physician: Not on Staff, PCP Admit Date/Time: 11/17/2024 00:53 Discharge Disposition Discharge Disposition: Home: No Services Discharge Diagnosis Seizure (R56.9) Lactic acidosis (E87.20) Altered mental status (R41.82) Respiratory acidosis (E87.29) Seizures (R56.9) _ Discharge Medications Acetaminophen (Tylenol 325 mg oral tablet)??650 Milligram By Mouth Every 6 hours as needed Pain , Moderate Atorvastatin (atorvastatin 20 mg oral tablet)??1 tab(s) 20 Milligram By Mouth Daily Benztropine (benztropine 1 mg oral tablet)??0.5 Milligram 0.5 tablet By Mouth 2 times a day Cyanocobalamin (cyanocobalamin 500 mcg oral tablet)??1 tab(s) 500 Microgram By Mouth Daily for 30 Days Durable Medical Equipment (Alcohol Wipes)??See Instructions use 3x a day to clean skin to when checking blood glucose Durable Medical Equipment (BD Ultrafine [id number], 1/2 ml Syringe)??See Instructions Use syringe to inject Lantus daily, E11.65 Durable Medical Equipment (Freestyle Lancets)??See Instructions for 30 Days Use lancets to check blood glucose 2x a day, E11.65 Durable Medical Equipment (Freestyle Lancets)??See Instructions for 30 Days test Bg once daily, E11.9 Durable Medical Equipment (Freestyle Lite Test Strips)??See Instructions Use test strips to check blood glucose 2x a day, E11.65, Durable Medical Equipment (Glucose Monitor)??See Instructions 3 TIMES A DAY Durable Medical Equipment (Glucose Test Strips)??See Instructions 3 TIMES A DAY Durable Medical Equipment (Insulin Syringe, BD Ultra-Fine 0.5 cc 30 G x 12.7 mm (1/2in))??See Instructions 2 TIMES A DAY Durable Medical Equipment (Insulin Syringe, BD Ultra-Fine 0.5 cc 31 G x 8 mm (5/16in))??See Instructions for 30 Days once daily injections.1mo. Durable Medical Equipment (Insulin Syringes)??See Instructions 3 TIMES A BEFORE MEAL Durable Medical Equipment (Lancets)??See Instructions 3 TIMES A DAY Durable Medical Equipment (One Touch Ultra Test Strips)??See Instructions for 30 Days use as directed for Type 1 Diabetes Mellitus Durable Medical Equipment (One Touch Ultra 2 Glucose Meter)??See Instructions for 30 Days use as directed for Type 1 Diabetes Mellitus Durable Medical Equipment (Prodify lancets E 11.65)??See Instructions Use 4/ day Gemfibrozil (gemfibrozil 600 mg oral tablet)??600 Milligram 1 tablet By Mouth 2 times a day GlipiZIDE (glipiZIDE 5 mg oral tablet)??5 Milligram 1 tablet By Mouth 2 times a day for 30 Days Insulin Glargine (Lantus Inj)??0.1 Milliliter 10 unit(s) Subcutaneous Injection Daily at bedtime Lacosamide (lacosamide 100 mg oral tablet)??100 Milligram By Mouth 2 times a day for 30 Days Magnesium Oxide (magnesium oxide 400 mg oral tablet)??400 Milligram By Mouth 2 times a day for 2 Days Metformin (metFORMIN 1000 mg oral tablet)??1 tab(s) 1,000 Milligram By Mouth 2 times a day Metoprolol (Toprol XL 25 mg oral tablet, extended release)??25 Milligram By Mouth Daily for 30 Days Miscellaneous Rx (Advocate glucometer)??See Instructions use 1-2 times a day Miscellaneous Rx (Advocate lancets)??See Instructions use 1-2 /day Miscellaneous Rx (Advocate meter test strips)??See Instructions use 1-2 /day Miscellaneous Rx (FREESTYLE LITE TEST STRIP)??See Instructions USE TEST STRIPS TO CHECK BLOOD GLUCOSE 2X A DAY, E11.65, Miscellaneous Rx (Prodigy glucoemter.)??See Instructions test 4 times ??a Phan 11.65 Miscellaneous Rx (Prodigy Teststrips)??See Instructions Use 4/ day . ICD : E 11.65 Miscellaneous Rx (PRODIGY TWIST TOP 28G LANCET)??See Instructions USE 4 TIMES DAILY DIRECTED. Potassium Phosphate-Sodium Phosphate (potassium phosphate-sodium phosphate 250 mg-280 mg-160 mg oral powder for reconstitution)??1 pack/packet By Mouth 2 times a day for 2 Days Risperidone (risperiDONE 3 mg oral tablet)??3 Milligram 1 tablet By Mouth 2 times a day Trazodone (traZODone 50 mg oral tablet)??150 Milligram By Mouth Daily at bedtime Valproic Acid (valproic acid 250 mg/5 mL oral syrup)??12.5 Milliliter 625 Milligram By Mouth Every 6 hours ? Inpatient Medications Medications (21) Active SCHEDULED: (11) Benztropine 1 mg Tablet (benztropine 1 mg oral tablet) ??0.5 mg, By Mouth, 2 times a day Docusate Sodium 10 mg/mL Liquid UD (Colace Liquid) ??100 mg 10 mL, Orogastric Tube, 2 times a day Enoxaparin 40 mg Inj (Enoxaparin Inj) ??40 mg 0.4 mL, Subcutaneous Injection, Daily Insulin Glargine 100 units/mL Inj (Lantus Inj) ??10 units 0.1 mL, Subcutaneous Injection, Daily at bedtime Insulin Lispro 100 units/mL Inj (Insulin LISPRO Sliding Scale) ??2-10 units, Subcutaneous Injection, 3 times a day before meals Lacosamide 100 mg Tablet (Lacosamide Tablet) ??100 mg, By Mouth, 2 times a day Magnesium Oxide 400 mg Tablet (magnesium oxide 400 mg oral tablet) ??400 mg, By Mouth, 2 times a day Metoprolol 25 mg XL Tablet (Toprol XL 25 mg oral tablet, extended release) ??25 mg, By Mouth, Daily Phos-NaK Oral Powder ??1 pack/packet, By Mouth, 2 times a day Risperidone 1 mg Tablet (risperiDONE 1 mg oral tablet) ??3 mg, Orogastric Tube, 2 times a day Valproic Acid 250 mg/5 mL Syrup UD (Valproic Acid Liquid) ??625 mg 12.5 mL, By Mouth, Every 6 hours CONTINUOUS: (0) PRN: (10) Acetaminophen 325 mg Tablet (Tylenol 325 mg oral tablet) ??650 mg, By Mouth, Every 6 hours Bisacodyl 10 mg Suppository (Bisacodyl Supp) ??10 mg 1 supp, Rectally, 2 times a day Dextromethorphan-Guaifenesin 20 mg-200 mg/10 mL Liqu UD (Robitussin DM Liquid) ??5 mL, By Mouth, Every 4 hours Dextrose Inj Syringe (Dextrose 50% Inj Syringe (25Gm)) ??12.5 Gm, IV Push Slowly, Every 20 minutes Dextrose Inj Syringe (Dextrose 50% Inj Syringe (25Gm)) ??25 Gm, IV Push Slowly, Every 15 minutes Glucagon 1 mg Inj (Glucagon Inj) ??1 mg, Intramuscular, Once Glucose 40% Gel (15 Gm) (Glucose Gel) ??30 Gm, By Mouth, Every 20 minutes Magnesium Hydroxide 8% Susp UD (Milk of Magnesia Liquid) ??30 mL, Orogastric Tube, 2 times a day Polyethylene Glycol 17 Gm Powder (MiraLax Powder) ??17 Gm 1 pack/packet, By Mouth, Daily Sodium Phosphate 3 mmol/mL IVPB (Sodium Phosphate IVPB) ??15 mmol 5 mL, IVPB, Every 4 hours ? Allergies Allergies ?(Active and Proposed Allergies Only) NKA? (Severity: Unknown severity, Onset: Unknown) ? PCP Follow-Up/Heads-Up May benefit from periodic monitoring of electrolytes including phosphorus, calcium Future Appointments Sunday 3:15 PM EDT ?? With: Pete RIVERA Bk Where: [facility] [address] [place] [id number]- Status: Pending 2024 8:45 AM EDT ?? With: Alannah RIVERA, Jacob Abdalla Where: [facility] [address] [place] [address] [address] Floor, [address] [place] [id number]- Status: Pending Hospital Course ?44-year-old male medical history of epilepsy bipolar disorder, autism, schizophrenia, type 2 diabetes mellitus, presented via EMS after having seizure- like activity found outside of his apartment around 1900.??Came in as a resuscitation and had CPR started immediately.??He received 10 mg of Versed and per EMS was noted to have left??eye deviation at that time.??GCS on arrival 3.??Given patient's lack of protection of airway he was intubated and given 3 g of Keppra for seizure prophylaxis.??Hewas briefly hypotensive and received 1 L of IV fluids and briefly required Levophed 0.05 mcg/kg/minwhich led to normalization of his blood pressure.??He is now off of pressor medications.?CT head, CT C-spine???no acute changes. CT chest without contrast, CT T-spine and L-spine 11/17 ?Smallbilateral pleural effusions with adjacent compressive atelectasis. Probable right lower lobe pneumonia. Mild interlobular septal thickening suggesting interstitial edema. ??Also nondisplaced fracture??. In T5, T6, L1-L3, multiple ribs??noticed.?Neurology was consulted , VEEG performed. no seizures.. Transferred out of ICU 11/21. No further acute??issues. ?? Seizure disorder Status epilepticus/breakthrough seizures; likely in the setting of AED noncompliance since has not filled lacosamide Rx since june CT head??shows??encephalomalacia??from previous??brain surgery due to meningioma.?? Lacosamide 100 mg twice daily,??valproic acid??625 mg every 6 hours.? Cardiac arrest Cardiomyopathy EF 43% global hypokinesis. 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 Aspiration pneumonia?? Completed 5 days of ceftriaxone, last dose was 11/21 Now with cough, CXR 11/22 no acute changes Respiratory pathogen panel negative Cough syrup as needed He was treated with chest physiotherapy Also pulm rehab evaluated, no need for home O2 on 11/26 ?? Bipolar d/o Autism c/w??benztropine, risperidone ?? Multiple thoracic and lumbar vertebral fracture Multiple rib fracture Seen by neurosurgery 11/17 if these are true fractures they are all stable fractures.?? No spinal precautions required?? no bracing required no additional imaging needed no routine neurosurgical follow up.? Hypophosphatemia Received replacement ?? Paraphimosis Reduced in icu by urology using sedation. no further issues. ?? Diet: Dental soft Code status: full HCP: No one listed.?? Both of patient's??healthcare proxy are .? Objective Vital Signs?? Temperature: 97.7 DegF (11/27/24 07:00:00) Temperature Route: Oral (11/27/24 07:00:00) Pulse Rate: 66 bpm (11/27/24 08:53:00) Respiratory Rate: 17 br/min (11/27/24 07:00:00) Systolic Blood Pressure: 112 mm Hg (11/27/24 08:53:00) Diastolic Blood Pressure: 75 mm Hg (11/27/24 08:53:00) Blood pressure sites: Arm, right (11/27/24 07:00:00) Mean Arterial Pressure: 77 mm Hg (11/27/24 04:28:00) Pulse Pressure: 23 mm Hg (11/27/24 07:00:00) Oxygen Saturation: 98 % (11/27/24 07:00:00) Liters per Minute: 3 L/min (11/27/24 04:28:00) Mode of Delivery (Oxygen): Room air (11/27/24 07:00:00) Early Warning Score: 2 (11/27/24 08:55:51) ? . Physical Exam He is awake, comfortable, lying in bed. Able to tell his name. Unable to tell today's date. Nonlabored breathing, on room air Regular rate and rhythm No pedal edema Abdomen is soft, nontender, nondistended Consultants Neurology Pending Results No Pending Results Follow-Up Appointments Added Follow Up ?Time Frame ?Comments Alannah RIVERA, Jacob Abdalla?01/22/2025 08:45 Home Health Face to Face ^HomeHealthFTF Results Discharge Labs BACTERIOLOGY Resp Cult Spec Source ENDOTRACHEAL ASPIRATE ()?? 11/17/2024 11:27 Respiratory Culture Result Note ()?? 11/17/2024 11:27 ?? BLOOD COUNT & DIFF WBC 4.8 k/mm3 ()?? 11/24/2024 09:39 RBC 4.00 m/mm3 (Low)?? 11/24/2024 09:39 Hgb 12.5 Gm/dL (Low)?? 11/24/2024 09:39 Hct 38.4 % (Low)?? 11/24/2024 09:39 MCV 96.0 femtoliters (High)?? 11/24/2024 09:39 MCH 31.3 pg ()?? 11/24/2024 09:39 MCHC 32.6 Gm/dL (Low)?? 11/24/2024 09:39 Platelet Count 282 k/mm3 ()?? 11/24/2024 09:39 RDW-SD 41.6 femtoliters ()?? 11/24/2024 09:39 MPV 9.9 femtoliters ()?? 11/24/2024 09:39 Nucleated RBC (Automated) 0.0 #/100 WBC'S ()?? 11/24/2024 09:39 Abs. NRBC 0.0 k/mm3 ()?? 11/24/2024 09:39 Abs. Neut 3.3 k/mm3 ()?? 11/22/2024 01:46 Abs. Lymph 2.0 k/mm3 ()?? 11/22/2024 01:46 Abs. [place] 1.0 k/mm3 ()?? 11/22/2024 01:46 Abs. Eo 0.3 k/mm3 ()?? 11/22/2024 01:46 Abs. Baso 0.0 k/mm3 ()?? 11/22/2024 01:46 Neut % 50.2 % ()?? 11/22/2024 01:46 Lymph % 30.5 % ()?? 11/22/2024 01:46 [place] % 14.3 % (High)?? 11/22/2024 01:46 Eos % 4.4 % ()?? 11/22/2024 01:46 Baso % 0.3 % ()?? 11/22/2024 01:46 Hemoglobin (POC) POC Cartridge 12.2 Gm/dL (Low)?? 11/16/2024 20:46 Hematocrit (POC) POC Cartridge 36 % (Low)?? 11/16/2024 20:46 Imm Gran 0.3 % ()?? 11/22/2024 01:46 Abs. Imm Gran 0.0 k/mm3 ()?? 11/22/2024 01:46 ?? BLOOD GAS pH Venous (POC) POC Cartridge 7.21 (Low)?? 11/16/2024 20:46 pCO2 Venous (POC) POC Cartridge 31.6 mm Hg (Low)?? 11/16/2024 20:46 pO2 Venous (POC) POC Cartridge 28 mm Hg (Low)?? 11/16/2024 20:46 Est Bicarbonate (POC) POC Cartridge 12.6 mmol/L (Low)?? 11/16/2024 20:46 % O2 Sat Venous (POC) POC Cartridge 42 ()?? 11/16/2024 20:46 Base Excess (POC) POC Cartridge NEGATIVE 15 ()?? 11/16/2024 20:46 Specimen Type - Blood Gas VENOUS ()?? 11/16/2024 20:46 ? CARDIAC CK, Total 184 units/L ()?? 11/16/2024 21:17 High Sensitivity Troponin (HSTnT) 14 ng/L ()?? 11/16/2024 21:17 ?? CHEM GENERAL Sodium 139 mmol/L ()?? 11/25/2024 01:38 Potassium 4.4 mmol/L ()?? 11/25/2024 01:38 Chloride 107 mmol/L ()?? 11/25/2024 01:38 Bicarbonate Level 25 mmol/L ()?? 11/25/2024 01:38 Anion Gap 7 mmol/L ()?? 11/25/2024 01:38 Sodium (POC) POC Cartridge 139 mmol/L ()?? 11/16/2024 20:46 Potassium (POC) POC Cartridge 4.9 mmol/L ()?? 11/16/2024 20:46 Glucose Level 276 mg/dL (High)?? 11/25/2024 01:38 Glucose (POC) POC Cartridge 186 (High)?? 11/16/2024 20:46 Glucose, POC 175 mg/dL (High)?? 11/27/2024 06:55 Hemoglobin A1C (Monitoring) 6.6 % (High)?? 11/17/2024 06:22 BUN 11 mg/dL ()?? 11/25/2024 01:38 Creatinine-Blood 0.77 mg/dL ()?? 11/25/2024 01:38 Estimated GFR Creatinine 112 ML/MIN/1.73 M2 ()?? 11/25/2024 01:38 Calcium 9.7 mg/dL ()?? 11/25/2024 01:38 Calcium, Ionized pH Corrected 1.52 mmol/L (Critical)?? 11/24/2024 03:16 Ionized Calcium (POC) POC Cartridge 1.18 mmol/L ()?? 11/16/2024 20:46 Phosphorus 2.1 mg/dL (Low)?? 11/25/2024 01:38 Magnesium 1.9 mg/dL ()?? 11/25/2024 01:38 Protein, Total 6.1 Gm/dL (Low)?? 11/24/2024 09:39 Albumin 3.0 Gm/dL (Low)?? 11/24/2024 09:39 AG Ratio 1.0 ()?? 11/24/2024 09:39 Alkaline Phosphatase 70 units/L ()?? 11/24/2024 09:39 AST (SGOT) 15 units/L ()?? 11/24/2024 09:39 ALT (SGPT) 12 units/L ()?? 11/24/2024 09:39 Bilirubin, Total 0.3 mg/dL ()?? 11/24/2024 09:39 Bilirubin, Direct 0.3 mg/dL ()?? 11/21/2024 03:20 Bilirubin, Indirect 0.6 mg/dL ()?? 11/21/2024 03:20 Lactate 2.6 mmol/L (High)?? 11/17/2024 05:12 ? COAG INR 1.1 ()?? 11/17/2024 06:22 Protime (PT) 11.7 seconds (High)?? 11/17/2024 06:22 ?? ENDOCRINE/TUMOR MARKER TSH 5.66 uIU/mL (High)?? 11/16/2024 21:17 Free T4 0.68 ng/dL (Low)?? 11/16/2024 21:17 Prolactin 45.4 ng/mL (High)?? 11/17/2024 05:12 % Monomeric Prolactin 92 % ()?? 11/17/2024 05:12 ?? HEME OTHER Hold Blue Top SPECIMEN DISCARDED AFTER 4 HOURS. ()?? 11/16/2024 21:17 ? MISC. CHEMISTRY Procalcitonin 0.03 ng/mL ()?? 11/17/2024 08:35 Hold Gel Top SPECIMEN DISCARDED AFTER 1 WEEK ()?? 11/16/2024 21:17 ?? TOXICOLOGY/TDM Ethanol, Serum or Plasma NONE DETECTED mg/dL ()?? 11/16/2024 21:17 Barbiturate Screen, Urine NONE DETECTED ()?? 11/16/2024 22:30 Cannabinoid Screen, Urine NONE DETECTED ()?? 11/16/2024 22:30 Cocaine Metabolite Screen, Urine NONE DETECTED ()?? 11/16/2024 22:30 Benzodiazepine Screen, Urine POSITIVE (Abnormal)?? 11/16/2024 22:30 Amphetamine Screen, Urine NONE DETECTED ()?? 11/16/2024 22:30 Opiate Screen, Urine NONE DETECTED ()?? 11/16/2024 22:30 ? URINE OTHER Est Creatinine Clearance 107.19 mL/min ()?? 11/25/2024 02:19 ? VIROLOGY Influenza A PCR NEGATIVE ()?? 11/16/2024 22:30 Influenza B PCR NEGATIVE ()?? 11/16/2024 22:30 RSV PCR NEGATIVE ()?? 11/16/2024 22:30 Adenovirus by PCR NEGATIVE ()?? 11/22/2024 15:30 Coronavirus 229E by PCR (not COVID-19) NEGATIVE ()?? 11/22/2024 15:30 Coronavirus HKU1 by PCR (not COVID-19) NEGATIVE ()?? 11/22/2024 15:30 Coronavirus NL63 by PCR (not COVID-19) NEGATIVE ()?? 11/22/2024 15:30 Coronavirus OC43 by PCR (not COVID-19) NEGATIVE ()?? 11/22/2024 15:30 Human Metapneumovirus by PCR NEGATIVE ()?? 11/22/2024 15:30 Rhinovirus/Enterovirus by PCR NEGATIVE ()?? 11/22/2024 15:30 Influenza A by PCR NEGATIVE ()?? 11/22/2024 15:30 Influenza B by PCR NEGATIVE ()?? 11/22/2024 15:30 Parainfluenza 1 by PCR NEGATIVE ()?? 11/22/2024 15:30 Parainfluenza 2 by PCR NEGATIVE ()?? 11/22/2024 15:30 Parainfluenza 3 by PCR NEGATIVE ()?? 11/22/2024 15:30 Parainfluenza 4 by PCR NEGATIVE ()?? 11/22/2024 15:30 RSV by PCR NEGATIVE ()?? 11/22/2024 15:30 Bordetella Pertussis by PCR NEGATIVE ()?? 11/22/2024 15:30 Chlamydophila Pneumoniae by PCR NEGATIVE ()?? 11/22/2024 15:30 Mycoplasma Pneumoniae by PCR NEGATIVE ()?? 11/22/2024 15:30 COVID-19 PCR Specimen Source NASAL ()?? 11/16/2024 22:30 COVID-19 PCR Result NEGATIVE ()?? 11/16/2024 22:30 COVID-19 (SARS-CoV-2) by PCR NEGATIVE ()?? 11/22/2024 15:30 Bordetella Parapertussis by PCR NEGATIVE ()?? 11/22/2024 15:30 ? 29 minutes spent on discharge * Vero Gil RN: PERFORM Event Display: Patient Education/Instruction Authored Date: [id number] Inpatient Adult Discharge Instructions. [address] [address] Name: CASSIE THAYER : 1980?? Visit: 11/17/2024 00:53?? Current Date: 11/27/2024 09:46 ?? Account: [id number]?? Inpatient Adult Discharge Instructions We would like to thank you for allowing us to assist you with your healthcare needs. The following includes patient education materials and information regarding your injury/illness. Our entire staffstrives to provide an excellent experience for our patients and their families. PLEASE ENSURE YOU FOLLOW-UP PER THE INSTRUCTIONS BELOW! ?? YOUR OPINION IS IMPORTANT TO US! Please complete the survey you may receive by mail or email. Your feedback will be used to make improvements to the healthcare experiences of our patients and their families. Surveys are administered by [employer]. ?? If further treatment with your primary care physician or another doctor is recommended, it is important for you to keep the appointment. Call your primary care physician or return to the Emergency Department immediately if your condition worsens, fails to improve, or new symptoms develop. If you need to find a doctor, you can call [facility] for a referral at [phone] or toll free at [phone]) or log in to [email or web address].. ?? [facility], in keeping with [facility] guidance, no longer requires face masks for staff, patientsor visitors in most situations. Similiar to time spent indoors at other locations, there is the chance that you were exposed to repiratory viruses during your time with us (such as flu or COVID-19). If you develop symptoms concerning for a viral respiratory infection, please seek testing (and treatment if indicated) from your medical provider or home test kit. ?? You can view and manage your care through the patient portal or by using a health care yen of your choosing. [employer] is a website that allows you to securely view your medical information including your hospital discharge summary, office visit summaries, medications and follow-up visits. You can also request appointments, renew medications, and request access to your medical information using a health care yen of your choosing, or just ask a question. You are entitled to know the individuals who participated in your treatment. This information is available within your medical record and will be provided upon your request. You can enroll at [email or web address] or register d uring your next office visit. You have been discharged from [facility], Patient Care Unit: D5A??. If you have any questions regarding these instructions, including results of studies pending, afteryou leave, please call us and we will be happy to assist you 25/12. [facility] Your Care Team Attending Physician Linette RIVERA, Dex Pappas?? Consulting Providers Linette RIVERA, Dex Pappas?? Discharging Providers Linette RIVERA, Dex Pappas Reason for Your Visit Unresponsive?? Your Diagnosis Seizures Tests Performed Below is a partial list of the tests performed during your hospitalization. You may have had other tests and procedures not included in this list. Please discuss all test results with your provider. Amphetamine Urine Screen Barbiturate Urine Screen BASE EXCESS POC CARTRIDGE Basic Metabolic Panel Benzodiazepine Urine Screen BUN CALCIUM IONIZED POC CART Cannabinoid Urine Screen CBC CBC w/ Differential CK,TOTAL ONLY Cocaine Urine Screen Comprehensive Metabolic Panel COVID-19, RSV, and Flu A/B, Rapid PCR Creatinine Culture Respiratory Tract w/ Gram Smear Electrolytes ETHANOL FREE T4 GLUCOSE POC GLUCOSE POC CARTRIDGE HEMATOCRIT POC CARTRIDGE HEMOGLOBIN A1C HEMOGLOBIN POC CARTRIDGE HOLD BLUE TUBE HOLD GEL TUBE INR Ionized Calcium Lactate Level LFT's Lytes Magnesium Level Opiate Screen Urine Phosphorus Level POTASSIUM POC CARTRIDGE Procalcitonin Level PROLACTIN PROLACTIN, MONOMERIC Respiratory Pathogen PCR with COVID-19 SODIUM POC CARTRIDGE Troponin T, High Sensitivity TSH WITH REFLEX TO FT4 VBG POC CARTRIDGE CT Cervical Spine W/O Contrast CT Chest W/O Contrast CT Head/Brain W/O Contrast CT Lumbar Spine W/O Contrast CT Thoracic Spine W/O Contrast PCXR Portable Chest Amphetamine Urine Screen?? BUN?? Barbiturate Urine Screen?? Base Excess (Lab) POC Cartridge (BASE EXCESS POC CARTRIDGE)?? Basic Metabolic Panel?? Benzodiazepine Urine Screen?? CBC?? CBC w/ Differential?? COVID-19, RSV, and Flu A/B, Rapid PCR?? CPK Total Only (CK,TOTAL ONLY)?? CT Cervical Spine W/O Contrast?? CT Chest W/O Contrast?? CT Head/Brain W/O Contrast?? CT Lumbar Spine W/O Contrast?? CT Thoracic Spine W/O Contrast?? Cannabinoid Urine Screen?? Cocaine Urine Screen?? Comprehensive Metabolic Panel?? Creatinine?? Electrolytes?? Ethanol Level (ETHANOL)?? Free T4?? Glucose (Lab) POC Cartridge (GLUCOSE POC CARTRIDGE)?? Glucose POC?? Hematocrit (Lab) POC Cartridge (HEMATOCRIT POC CARTRIDGE)?? Hemoglobin (Lab) POC Cartridge (HEMOGLOBIN POC CARTRIDGE)?? Hemoglobin A1C (Monitoring) (HEMOGLOBIN A1C)?? Hepatic Function Panel (LFT's)?? High??Sensitivity??Troponin T (Troponin T, High Sensitivity)?? Hold Blue Top Tube (HOLD BLUE TUBE)?? Hold Gel Top Tube (HOLD GEL TUBE)?? INR?? Ionized Calcium?? Ionized Calcium(POC) POC Cartridge (CALCIUM IONIZED POC CART)?? Lactic Acid Level (Lactate Level)?? Magnesium Level?? Opiate Screen Urine?? Phosphorus Level?? Potassium (Lab) POC Cartridge (POTASSIUM POC CARTRIDGE)?? Procalcitonin Level?? Prolactin Level (PROLACTIN)?? Prolactin Monomeric (PROLACTIN, MONOMERIC)?? Respiratory Pathogen PCR with COVID-19?? Respiratory Tract Culture w/ Gram Smear (Culture Respiratory Tract w/ Gram Smear)?? Sodium (Lab) POC Cartridge (SODIUM POC CARTRIDGE)?? TSH with T4 Reflex (Adults Only) (TSH WITH REFLEX TO FT4)?? VBG (Lab) POC Cartridge (VBG POC CARTRIDGE)?? Chest Portable (Portable Chest)?? Primary Care Provider Loraine RIVERA, Laci Santiago? Advance Directive Health Care Proxy on File No Patient refuses to discuss Discharge Vitals Temperature: 97.7 DegF Height: 167 cm Pulse Rate: 66 bpm Weight: 89.7 kg Respiratory Rate: 17 br/min Body Mass Index:??33.63 kg/m2??Critical Systolic Blood Pressure: 112 mm Hg Body surface area: 2.09 Diastolic Blood Pressure: 75 mm Hg ?? Oxygen Saturation: 98 % ?? Studies Pending All studies ordered during this hospital stay have been completed unless listed below. Please discuss all pending results with your provider listed above in these instructions. ?? No incomplete studies found?? What to do next Instructions From Your Doctor ?? Orders??:Dental Soft Diet? 11/27/24 9:34:00 EDT?? Scheduled Follow-Up Appointments Sunday 3:15 PM EDT ?? With: Bk Freeman MD Where: [facility] [address] [place] [id number]- Status: Pending 2024 8:45 AM EDT ?? With: Jacob Jaffe MD Where: [facility] [address], [address] [place] [address]- Status: Pending You Need to Schedule the Following Appointments Follow Up with??Jacob Jaffe MD When:??01/22/2025 08:45 AM EDT Where: [address] [facility] [place] [address]- Follow Up with??Not on Staff, PCP Why: Make a follow up appointment w PCP in 1-2 weeks from discharge??date if possible Discharge Medications CASSIE THAYER DOB:1980 Visit Date:11/17/2024 Medications: Please continue your medications until treatment is completed or stopped by your provider. Medications not listed below should be discontinued. Discuss any questions related to medications with your provider. What How Much When Why Instructions Next Dose New Acetaminophen (Tylenol 325 mg oral tablet) 650 Milligram Oral Every 6 hours as needed for Pain , Moderate As needed, last dose 11/24/24 New Cyanocobalamin (cyanocobalamin 500 mcg oral tablet) 1 tab(s) Oral Daily Duration: 30 Days Tomorrow 11/28/24 in AM New GlipiZIDE (glipiZIDE 5 mg oral tablet) 1 tab(s) Oral Twice a day Duration: 30 Days Today 11/27/24 at bedtime New Magnesium Oxide (magnesium oxide 400 mg oral tablet) 400 Milligram Oral Twice a day Duration: 2 Days Pickup at [facility] 3 Today 11/27/24 at bedtime New Metoprolol (Toprol XL 25 mg oral tablet, extended release) 25 Milligram Oral Daily Duration: 30 Days Pickup at [facility] 3 Tomorrow 11/28/24 in AM New Potassium Phosphate-Sodium Phosphate (potassium phosphate-sodium phosphate 250 mg-280 mg-160 mgoral powder for reconstitution) 1 pack/packet Oral Twice a day Duration: 2 Days Pickup at [facility] 3 Today 11/27/24 at bedtime Changed Benztropine (benztropine 1 mg oral tablet) 0.5 tab(s) Oral Twice a day Today 11/27/24 at bedtime Changed Insulin Glargine (Lantus Inj) 10 unit(s) Subcutaneous Injection Daily at Bedtime Today 11/27/24 at bedtime Changed Lacosamide (lacosamide 100 mg oral tablet) 100 Milligram Oral Twice a day Duration: 30 Days Pickup at [facility] 3 Today 11/27/24 at bedtime Changed Metformin (metFORMIN 1000 mg oral tablet) 1 tab(s) Oral Twice a day Resume home dosing Changed Miscellaneous Rx ([facility] glucometer) See instructions use 1-2 times a day ?? As directed Changed Miscellaneous Rx (Advocate lancets) See instructions use 1-2 / day ?? As directed Changed Miscellaneous Rx (Advocate meter test strips) See instructions use 1-2 / day ?? As directed Changed Miscellaneous Rx (FREESTYLE LITE TEST STRIP) See instructions USE TEST STRIPS TO CHECK BLOOD GLUCOSE 2X A DAY, E11.65, ?? As directed Changed Miscellaneous Rx (Prodigy glucoemter.) See instructions test 4 times ??a day E 11.65 ?? As directed Changed Miscellaneous Rx (Prodigy Teststrips) See instructions Use 4/ ??day . ICD : E 11.65 ?? As directed Changed Miscellaneous Rx (PRODIGY TWIST TOP 28G LANCET) See instructions USE 4 TIMES DAILY DIRECTED. ?? As directed Changed Risperidone (risperiDONE 3 mg oral tablet) 1 tab(s) Oral Twice a day Today 11/27/24 at bedtime Changed Trazodone (traZODone 50 mg oral tablet) 150 Milligram Oral Daily at Bedtime Today 11/27/24 at bedtime Changed Valproic Acid (valproic acid 250 mg/ 5 mL oral syrup) 12.5 Milliliter Oral Every 6 hours Pickup at [facility] 3 Today 11/27/24 at 4PM Unchanged Atorvastatin (atorvastatin 20 mg oral tablet) 1 tab(s) Oral Daily Resume home dosing Unchanged Durable Medical Equipment (Alcohol Wipes) See instructions use 3x a day to clean skin to when checking blood glucose ?? As directed Unchanged Durable Medical Equipment (BD Ultrafine 32Us5zc, 1/ 2 ml Syringe) See instructions Use syringe to inject Lantus daily, E11.65 ?? As directed Unchanged Durable Medical Equipment (Freestyle Lancets) See instructions Duration: 30 Days test Bg once daily, E11.9 ?? As directed Unchanged Durable Medical Equipment (Freestyle Lancets) See instructions Duration: 30 Days Use lancets to check blood glucose 2x a day, E11.65 ?? As directed Unchanged Durable Medical Equipment (Freestyle Lite Test Strips) See instructions Use test strips to check blood glucose 2x a day, E11.65, ?? As directed Unchanged Durable Medical Equipment (Glucose Monitor) See instructions 3 TIMES A DAY ?? As directed Unchanged Durable Medical Equipment (Glucose Test Strips) See instructions 3 TIMES A DAY ?? As directed Unchanged Durable Medical Equipment (Insulin Syringe, BD Ultra-Fine 0.5 cc 30 G x 12.7 mm (1/ 2in))See instructions 2 TIMES A DAY ?? As directed Unchanged Durable Medical Equipment (Insulin Syringe, BD Ultra-Fine 0.5 cc 31 G x 8 mm (5/ 16in)) See instructions Type 2 diabetes mellitus Duration: 30 Days once daily injections.1mo. ?? As directed Unchanged Durable Medical Equipment (Insulin Syringes) See instructions 3 TIMES A BEFORE MEAL ?? As directed Unchanged Durable Medical Equipment (Lancets) See instructions 3 TIMES A DAY ?? As directed Unchanged Durable Medical Equipment (One Touch Ultra 2 Glucose Meter) See instructions Duration: 30 Days use as directed for Type 1 Diabetes Mellitus ?? As directed Unchanged Durable Medical Equipment (One Touch Ultra Test Strips) See instructions Duration: 30 Days use as directed for Type 1 Diabetes Mellitus ?? As directed Unchanged Durable Medical Equipment (Prodify lancets E 11.65) See instructions Use 4/ ??day ?? As directed Unchanged Gemfibrozil (gemfibrozil 600 mg oral tablet) 1 tab(s) Oral Twice a day Resume home dosing [facility]: [address], [place] [phone] ?? What How Much When Comments Stop Taking Baclofen (baclofen 10 mg oral tablet) 1 tab(s) Oral Twice a day Stop Taking BusPIRone (busPIRone 30 mg oral tablet) 1 tab(s) Oral Twice a day Stop Taking Divalproex Sodium (divalproex sodium 500 mg oral enteric coated tablet) 3 tab(s) Oral Daily at Bedtime Stop Taking Divalproex Sodium (divalproex sodium 500 mg oral enteric coated tablet) 2 tab(s) Oral Daily in the morning Stop Taking Ibuprofen (ibuprofen 600 mg oral tablet) 1 tab(s) Oral 4 times a day Stop Taking Ziprasidone (Geodon 80 mg oral capsule) 1 capsule Oral Twice a day Prescription Given During Visit Cyanocobalamin (cyanocobalamin 500 mcg oral tablet) - 1 tablet = 500 mcg, By Mouth, Daily, # 30 tablet, 0 Refills?? GlipiZIDE (glipiZIDE 5 mg oral tablet) - 1 tablet = 5 mg, By Mouth, 2 times a day, # 60 tablet, 0 Refills?? Lacosamide (lacosamide 100 mg oral tablet) - 100 mg, By Mouth, 2 times a day, # 60 tablet, 0 Refills, [place] [address] [phone]?? Magnesium Oxide (magnesium oxide 400 mg oral tablet) - 400 mg, By Mouth, 2 times a day, # 4 tablet,0 Refills, [place] [address] [phone]?? Metoprolol (Toprol XL 25 mg oral tablet, extended release) - 25 mg, By Mouth, Daily, # 30 tablet, 0Refills, [place] [address] [id number]?? Potassium Phosphate-Sodium Phosphate (potassium phosphate-sodium phosphate 250 mg-280 mg-160 mg oral powder for reconstitution) - 1 pack/packet, By Mouth, 2 times a day, # 4 pack/packet, 0 Refills, [place] [address] [id number]?? Valproic Acid (valproic acid 250 mg/5 mL oral syrup) - 12.5 mL = 625 mg, By Mouth, Every 6 hours, #1,500 mL, 0 Refills, [place] [address] [id number]?? Laboratory Results Below is a partial list of the most recent Laboratory test results done prior to this discharge. You may have had other tests and procedures not included in this list. Please discuss all test resultswith your provider. Est Creatinine Clearance - 107.19 mL/min (11/25/2024) Amphetamine Urine Screen (11/16/2024) ???Amphetamine Screen, Urine - NONE DETECTED Barbiturate Urine Screen (11/16/2024) ???Barbiturate Screen, Urine - NONE DETECTED BASE EXCESS POC CARTRIDGE (11/16/2024) ???Base Excess (POC) POC Cartridge - NEGATIVE 15 Basic Metabolic Panel (11/25/2024) ???Sodium - 139 mmol/L???Potassium - 4.4 mmol/L???Chloride - 107 mmol/L???Bicarbonate Level - 25 mmol/L???Anion Gap - 7 mmol/L???Glucose Level - 276 mg/dL???BUN - 11 mg/dL???Creatinine-Blood - 0.77 mg/dL???Estimated GFR Creatinine - 112 ML/MIN/1.73 M2???Calcium - 9.7 mg/dL Benzodiazepine Urine Screen (11/16/2024) ???Benzodiazepine Screen, Urine - POSITIVE BUN (11/22/2024) ???BUN - 8 mg/dL CALCIUM IONIZED POC CART (11/16/2024) ???Ionized Calcium (POC) POC Cartridge - 1.18 mmol/L Cannabinoid Urine Screen (11/16/2024) ???Cannabinoid Screen, Urine - NONE DETECTED CBC (11/24/2024) ???WBC - 4.8 k/mm3???RBC - 4.00 m/mm3???Hgb - 12.5 Gm/dL???Hct - 38.4 %???MCV - 96.0 femtoliters???MCH - 31.3 pg???MCHC - 32.6 Gm/dL???Platelet Count - 282 k/mm3???RDW-SD - 41.6 femtoliters???MPV - 9.9 femtoliters???Nucleated RBC (Automated) - 0.0 #/100 WBC'S???Abs. NRBC - 0.0 k/mm3 CBC w/ Differential (11/22/2024) ???WBC - 6.6 k/mm3???RBC - 3.70 m/mm3???Hgb - 11.8 Gm/dL???Hct - 33.8 %???MCV - 91.4 femtoliters???MCH - 31.9 pg???MCHC - 34.9 Gm/dL???Platelet Count - 208 k/mm3???RDW-SD - 39.1 femtoliters???MPV - 9.6 femtoliters???Nucleated RBC (Automated) - 0.0 #/100 WBC'S???Abs. NRBC - 0.0 k/mm3???Abs. Neut - 3.3 k/mm3???Abs. Lymph - 2.0 k/mm3???Abs. [place] - 1.0 k/mm3???Abs. Eo - 0.3 k/mm3???Abs. Baso - 0.0 k/mm3???Neut % - 50.2 %???Lymph % - 30.5 %???[place] % - 14.3 %???Eos % - 4.4 %???Baso % - 0.3 %???Imm Gran - 0.3 %???Abs. Imm Gran - 0.0 k/mm3 CK,TOTAL ONLY (11/16/2024) ???CK, Total - 184 units/L Cocaine Urine Screen (11/16/2024) ???Cocaine Metabolite Screen, Urine - NONE DETECTED Comprehensive Metabolic Panel (11/24/2024) ???Sodium - 140 mmol/L???Potassium - 4.5 mmol/L???Chloride - 106 mmol/L???Bicarbonate Level - 28 mmol/L???Anion Gap - 6 mmol/L???Glucose Level - 241 mg/dL???BUN - 10 mg/dL???Creatinine-Blood - 0.82 mg/dL???Estimated GFR Creatinine - 110 ML/MIN/1.73 M2???Calcium - 10.4 mg/dL???Protein, Total - 6.1 Gm /dL???Albumin - 3.0 Gm/dL???AG Ratio - 1.0???Alkaline Phosphatase - 70 units/L???AST (SGOT) - 15 units/L???ALT (SGPT) - 12 units/L???Bilirubin, Total - 0.3 mg/dL COVID-19, RSV, and Flu A/B, Rapid PCR (11/16/2024) ???Influenza A PCR - NEGATIVE???Influenza B PCR - NEGATIVE???RSV PCR - NEGATIVE???COVID-19 PCR Specimen Source - NASAL???COVID-19 PCR Result - NEGATIVE Creatinine (11/22/2024) ???Creatinine-Blood - 0.78 mg/dL???Estimated GFR Creatinine - 111 ML/MIN/1.73 M2 Culture Respiratory Tract w/ Gram Smear (11/17/2024) ???Resp Cult Spec Source - ENDOTRACHEAL ASPIRATE???Respiratory Culture Result - Note Electrolytes (11/22/2024) ???Sodium - 140 mmol/L???Potassium - 4.0 mmol/L???Chloride - 106 mmol/L???Bicarbonate Level - 24 mmol/L???Anion Gap - 10 mmol/L ETHANOL (11/16/2024) ???Ethanol, Serum or Plasma - NONE DETECTED FREE T4 (11/16/2024) ???Free T4 - 0.68 ng/dL GLUCOSE POC (11/27/2024) ???Glucose, POC - 175 mg/dL GLUCOSE POC CARTRIDGE (11/16/2024) ???Glucose (POC) POC Cartridge - 186 HEMATOCRIT POC CARTRIDGE (11/16/2024) ???Hematocrit (POC) POC Cartridge - 36 % HEMOGLOBIN A1C (11/17/2024) ???Hemoglobin A1C (Monitoring) - 6.6 % HEMOGLOBIN POC CARTRIDGE (11/16/2024) ???Hemoglobin (POC) POC Cartridge - 12.2 Gm/dL HOLD BLUE TUBE (11/16/2024) ???Hold Blue Top - SPECIMEN DISCARDED AFTER 4 HOURS. HOLD GEL TUBE (11/16/2024) ???Hold Gel Top - SPECIMEN DISCARDED AFTER 1 WEEK INR (11/17/2024) ???INR - 1.1???Protime (PT) - 11.7 seconds Ionized Calcium (11/24/2024) ???Calcium, Ionized pH Corrected - 1.52 mmol/L Lactate Level (11/17/2024) ???Lactate - 2.6 mmol/L LFT's (11/21/2024) ???Protein, Total - 6.5 Gm/dL???Albumin - 3.3 Gm/dL???Alkaline Phosphatase - 69 units/L???AST (SGOT) - 34 units/L???ALT (SGPT) - 11 units/L???Bilirubin, Total - 0.9 mg/dL???Bilirubin, Direct - 0.3 mg/dL???Bilirubin, Indirect - 0.6 mg/dL Lytes (11/19/2024) ???Sodium - 141 mmol/L???Potassium - 3.7 mmol/L???Chloride - 107 mmol/L???Bicarbonate Level - 23 mmol/L???Anion Gap - 11 mmol/L Magnesium Level (11/25/2024) ???Magnesium - 1.9 mg/dL Opiate Screen Urine (11/16/2024) ???Opiate Screen, Urine - NONE DETECTED Phosphorus Level (11/25/2024) ???Phosphorus - 2.1 mg/dL POTASSIUM POC CARTRIDGE (11/16/2024) ???Potassium (POC) POC Cartridge - 4.9 mmol/L Procalcitonin Level (11/17/2024) ???Procalcitonin - 0.03 ng/mL PROLACTIN (11/17/2024) ???Prolactin - 45.4 ng/mL PROLACTIN, MONOMERIC (11/17/2024) ???% Monomeric Prolactin - 92 % Respiratory Pathogen PCR with COVID-19 (11/22/2024) ???Adenovirus by PCR - NEGATIVE???Coronavirus 229E by PCR (not COVID-19) - NEGATIVE???Coronavirus HKU1 by PCR (not COVID-19) - NEGATIVE???Coronavirus NL63 by PCR (not COVID-19) - NEGATIVE???Coronavirus OC43 by PCR (not COVID-19) - NEGATIVE???Human Metapneumovirus by PCR - NEGATIVE???Rhinovirus/Enterovirus by PCR - NEGATIVE???Influenza A by PCR - NEGATIVE???Influenza B by PCR - NEGATIVE???Parainfluenza 1 by PCR - NEGATIVE???Parainfluenza 2 by PCR - NEGATIVE???Parainfluenza 3 by PCR - NEGATIVE???Parainfluenza 4 by PCR - NEGATIVE???RSV by PCR - NEGATIVE???Bordetella Pertussis by PCR - NEGATIVE??? Chlamydophila Pneumoniae by PCR - NEGATIVE???Mycoplasma Pneumoniae by PCR - NEGATIVE???COVID-19 (SARS-CoV-2) by PCR - NEGATIVE???Bordetella Parapertussis by PCR - NEGATIVE SODIUM POC CARTRIDGE (11/16/2024) ???Sodium (POC) POC Cartridge - 139 mmol/L Troponin T, High Sensitivity (11/16/2024) ???High Sensitivity Troponin (HSTnT) - 14 ng/L TSH WITH REFLEX TO FT4 (11/16/2024) ???TSH - 5.66 uIU/mL VBG POC CARTRIDGE (11/16/2024) ???pH Venous (POC) POC Cartridge - 7.21???pCO2 Venous (POC) POC Cartridge - 31.6 mm Hg???pO2 Venous(POC) POC Cartridge - 28 mm Hg???Est Bicarbonate (POC) POC Cartridge - 12.6 mmol/L???% O2 Sat Venous (POC) POC Cartridge - 42???Specimen Type - Blood Gas - VENOUS You will be contacted within 72 hours with your results. Allergies (NKA means No Known Allergies) NKA Problems Active Problems??(4) Abnormal behavior?? Obese class I?? Sleep apnea?? T2DM (type 2 diabetes mellitus)?? Education Materials Below is the list of Educational Leaflet Providered with your Discharge Instructions. WebMD Ignite Patient Education - Recurrent Seizure (Adult)?? WebMD Ignite Patient Education - Safety During a Seizure?? WebMD Ignite Patient Education - Self-Care for Seizures?? WebMD Ignite Patient Education - First Aid: Seizures?? Valuables and Belongings I fully understand and agree that [facility] accepts no responsibility for all my personal property including clothing, toilet articles, radios, jewelry, dentures, hearing aids, rings, money, or any other property that is in my possession or is brought to me after admission. I understand certain valuables may be placed in a hospital safe for a short period of time. I understand that the hospital is not liable for loss or damage due to accident, fire, or other natural occurrence while said property is in the safe. I accept full responsibility for any personal property that I keep with me, and will not hold the hospital responsible in case of loss or disappearance. I acknowledge that i have been encouraged to send valuables and belongings home. ?? Date for Pt to Sign Valuables/Belongings: 11/17/24 01:49:00 ?? Other Discharge Information ? Pulmonary Rehab Status?? Pulmonary Rehab Discharge Status?? Respiratory Rate: 17 br/min PEEP: 5 ? Common Emergency Awareness Tips IS IT A STROKE? Act FAST and Check for these signs: FACE Does the face look uneven? ARM Does one arm drift down? SPEECH Does their speech sound strange? TIME Call at any sign of stroke ?? Heart Attack Signs Chest discomfort: Most heart attacks involve discomfort in the center of the chest and lasts more than a few minutes, or goes away and comes back. It can feel like uncomfortable pressure, squeezing, fullness or pain. Discomfort in upper body: Symptoms can include pain or discomfort in one or both arms, back, neck, jaw or stomach. Shortness of breath: With or without discomfort. Other signs: Breaking out in a cold sweat, nausea, or lightheaded. Remember, MINUTES DO MATTER. If you experience any of these heart attack warning signs, call to get immediate medical attention! ?? Smoking can increase your chances of developing chronic health problems and can cause harmful effects to other family members in your house. If you smoke, you are strongly encouraged to quit. Please call [facility] at [phone] or [phone] ([phone]) or log in to [email or web address] for referrals to smoking cessation programs. ?? 610 Suicide & Crisis Lifeline is available 25/12 if you or someone you know needs to find a reason to keep living. By calling 674 you'll be connected to a skilled, trained counselor at a crisis center in your area. INPATIENT DISCHARGE INSTRUCTIONS SIGNATURE PAGE CASSIE THAYER Location:[facility] Registration Date and Time:11/17/2024 00:53 EDT Primary Care Physician: Not on Staff, PCP Attending Physician: Linette RIVERA, [facility], CASSIE PORRAS, have received the above patient education materials/instructions and have verbalized understanding. If ambulance or transport services are being used I further acknowledge being given a choice of service. ?? If you need to contact me, please call me at this number: . Patient/Medical Billing Associate Name: Patient/Medical Billing Associate Signature: Relationship to Patient: Witness Name/Signature: Date: * Vero Gil RN: PERFORM Event Display: Patient Education Leaflets Authored Date: [id number] Potassium and Sodium Phosphates ?? [id number] Potassium and Sodium Phosphates Brand Name(s): ? This branded product is no longer on the market. Generic alternatives may be available. ?? WHY is this medicine prescribed? Potassium and sodium phosphates is used to provide a source of phosphorus to the body. It also is used to increase the acidity of the urine. Potassium and sodium phosphates is in a class of medications called urinary acidifiers. It works by providing additional amounts of phosphorus to the body. HOW should this medicine be used? Potassium and sodium phosphates comes as a tablet to take by mouth. Take four times a day, unless your doctor recommends to take it more frequently. Take potassium and sodium phosphates at around thesame times every day. Take potassium and sodium phosphates exactly as directed. Ask your doctor or pharmacist to explain any part you do not understand. Do not take more or less of it or take it more often than prescribedby your doctor. Ask your pharmacist or doctor for a copy of the materials engineer's information for the patient. Are there OTHER USES for this medicine? This medication may be prescribed for other uses; ask your doctor or pharmacist for more information. What SPECIAL PRECAUTIONS should I follow? Before taking potassium and sodium phosphates, ??? tell your doctor or pharmacist if you are allergic to this drug, any part of this drug, or any other drugs, foods or substances. Tell your doctor or pharmacist about the allergy and what symptomsyou had. ??? tell your doctor and pharmacist what prescription and nonprescription medications, vitamins, nutritional supplements, and herbal products you are taking or plan to take while taking potassium and sodium phosphates. Your doctor may need to change the doses of your medications or monitoryou carefully for side effects. ??? the following nonprescription or herbal products may interact with potassium and sodium phosphates: antacids containing magnesium, aluminum, or calcium. Be sure tolet your doctor and pharmacist know that you are taking these medications before you start taking potassium and sodium phosphates. Do not start any of these medications while taking potassium and sodium phosphates without discussing with your healthcare provider. ??? tell your doctor if you have inf ected phosphate stones, high levels of phosphate in your blood, or kidney disease. Your doctor may tell you not to take potassium and sodium phosphates. ??? tell your doctor if you have or have ever had high blood pressure, high levels of sodium in the blood, preeclampsia (high blood pressure during ), inflammation of the pancreas, [place]'s disease (body doesn't make enough of certain hormones) or thyroid, lung, heart, or liver disease. ??? tell your doctor if you are , plan to become , or are breast-feeding. What SPECIAL DIETARY instructions should I follow? Unless your doctor tells you otherwise, continue your normal diet. What should I do IF I FORGET to take a dose? Take the missed dose as soon as you remember it. However, if it is almost time for the next dose, skip the missed dose and continue your regular dosing schedule. Do not take a double dose to make up for a missed one. What SIDE EFFECTS can this medicine cause? Some side effects can be serious. If you experience any of these symptoms call your doctor immediately or get emergency medical treatment: ??? (Hyper K) numbness or tingling around lips; numbness, tingling, pain, or weakness of hands or feet; fast or irregular heartbeat; shortness of breath or troubled breathing ??? (Hypo K) unusual tiredness or weakness, dizziness, irregular heartbeat, muscle cramps ??? (Hyper Na) decreased urination, unusual thirst, mental confusion, swelling or weakness of feet or lower legs, unusual weight gain,seizures ??? (Hypo Na) headaches, dizziness, mental confusion, muscle weakness and cramps, seizures Potassium and sodium phosphates may cause other side effects. Call your doctor if you have any unusual problems while taking this medication. If you experience a serious side effect, you or your doctor may send a report to the Food and Drug Administration's (FDA) MedWatch Adverse Event Reporting program online (https://www.fda.gov/Safety/MedWatch) or by phone ( ). What should I know about STORAGE and DISPOSAL of this medication? Keep this medication in the container it came in, tightly closed, and out of reach of children. Store it at room temperature and away from light, excess heat and moisture (not in the bathroom). Keep all medication out of sight and reach of children as many containers are not child resistant. Always lock safety caps. Place the medication in a safe location ??? one that is up and away and outof their sight and reach https://www.upandaway.org Dispose of unneeded medications in a way so that pets, children, and other people cannot take them.Do not flush this medication down the toilet. Use a medicine take-back program. Talk to your pharmacist about take-back programs in your community. Visit the FDA's Safe Disposal of Medicines website h ttps://goo.gl/c4Rm4p for more information. What should I do in case of OVERDOSE? In case of overdose, call the poison control helpline at . Information is also available online at https://www.poisonhelp.org/help. If the victim has collapsed, had a seizure, has trouble breathing, or can't be awakened, immediately call emergency services at 911. What OTHER INFORMATION should I know? Keep all appointments with your doctor and the laboratory. Your doctor will order certain lab teststo check your body's response to potassium and sodium phosphates. Before having any laboratory test, tell your doctor and the laboratory personnel that you are taking potassium and sodium phosphates. Keep a written list of all of the prescription and nonprescription (sajy-tyr-nssddrk) medicines vitamins, minerals, and dietary supplements you are taking. Bring this list with you each time you visit a doctor or if you are admitted to the hospital. You should carry the list with you in case of sonny gencies. This report on medications is for your information only, and is not considered individual patient advice. Because of the changing nature of drug information, please consult your physician or pharmacist about specific clinical use. The [employer] represents that the information provided hereunder was formulated with a reasonable standard of care, and in conformity with professional standards in the field. The [employer] makes no representations or warranties, express or implied, including, but not limited to, any implied warranty of merchantability and/or fitness for a particular purpose, with respect to such information and specifically disclaims all such warranties. Users are advised that decisions regarding drug therapy are complex medical decisions requiring the independent, informed decision of an appropriate health animal care supervisor, and the information is provided for informational purposes only. The entire monograph for a drug should be reviewed for a thorough understanding of the drug's actions, uses and side effects. The [employer] does not endorse or recommend the use of any drug.The information is not a substitute for medical care. AHFS?? Patient Medication Information???. ?? Copyright, 2023. The [employer]??, [address], [address], [place], [place]. All Rights Reserved. Duplication for commercial use must be authorized by [facility]. Selected Revisions: August 16, 2024. AHFS?? Patient Medication Information???. ?? Copyright, 2024 ?? * Vero Gil RN: PERFORM Event Display: Patient Education Leaflets Authored Date: [id number] Cyanocobalamin Injection ?? [id number] Cyanocobalamin Injection Brand Name(s): Berubigen?, Betalin 12?, Cobavite?, Redisol?, Rubivite?, Ruvite?, Vi-twel?, Vibisone??; also available generically ?? Vitamin B12 ? This branded product is no longer on the market. Generic alternatives may be available. ?? WHY is this medicine prescribed? Cyanocobalamin injection is used to treat and prevent a lack of vitamin B12 that may be caused by any of the following: pernicious anemia (lack of a natural substance needed to absorb vitamin B12 from the intestine); certain diseases, infections, or medications that decrease the amount of vitamin B12 absorbed from food; or a vegan diet (strict vegetarian diet that does not allow any animal products, including dairy products and eggs). Lack of vitamin B12 may cause anemia (condition in which thered blood cells do not bring enough oxygen to the organs) and permanent damage to the nerves. Cyanocobalamin injection also may be given as a test to see how well the body can absorb vitamin B12. Cyanocobalamin injection is in a class of medications called vitamins. Because it is injected straight into the bloodstream, it can be used to supply vitamin B12 to people who cannot absorb this vitamin through the intestine. HOW should this medicine be used? Cyanocobalamin comes as a solution (liquid) to be injected into a muscle or just under the skin. Itis usually injected by a healthcare provider in an office or clinic. You will probably receive cyanocobalamin injection once a day for the first 6-7 days of your treatment. As your red blood cells return to normal, you will probably receive the medication every other day for 2 weeks, and then every 3-4 days for 2-3 weeks. After your anemia has been treated, you will probably receive the medication once a month to prevent your symptoms from coming back. Cyanocobalamin injection will supply you with enough vitamin B12 only as long as you receive injections regularly. You may receive cyanocobalamin injections every month for the rest of your life. Keep all appointments to receive cyanocobalamin injections even if you feel well. If you stop receiving cyanocobalamin injections, your anemia may return and your nerves may be damaged. Are there OTHER USES for this medicine? Cyanocobalamin injection is also sometimes used to treat inherited conditions that decrease the absorption of vitamin B12 from the intestine. Cyanocobalamin injection is also sometimes used to treat methylmalonic aciduria (an inherited disease in which the body cannot break down protein) and is sometimes given to unborn babies to prevent methylmalonic aciduria after . Talk to your doctor about the possible risks of using this drug for your condition. This medication may be prescribed for other uses; ask your doctor or pharmacist for more information. What SPECIAL PRECAUTIONS should I follow? Before using cyanocobalamin injection, ??? tell your doctor and pharmacist if you are allergic to cyanocobalamin injection, nasal gel, or tablets; hydroxocobalamin; multi-vitamins; any other medications or vitamins; or cobalt. ??? tell your doctor and pharmacist what prescription and nonprescription medications, vitamins, nutritional supplements, and herbal products you are taking or plan to take while using cyanocobalamin injection. Your doctor may need to change the doses of your medications or monitor you carefully for side effects. ??? tell your doctor if you drink or have ever drunk large amounts of alcohol and if you have orhave ever had Lamonte's hereditary optic neuropathy (slow, painless loss of vision, first in one eye and then in the other) or kidney disease. ??? tell your doctor if you are , plan to become , or are breast-feeding. If you become while using cyanocobalamin injection, call your doctor. Talk to your doctor about the amount of vitamin B12 you should get every day when you are or breast-feeding. What SPECIAL DIETARY instructions should I follow? Unless your doctor tells you otherwise, continue your normal diet. What should I do IF I FORGET to take a dose? If you miss an appointment to receive a cyanocobalamin injection, call your doctor as soon as possible. What SIDE EFFECTS can this medicine cause? Some side effects can be serious. The following symptoms are uncommon, but if you experience any ofthem, call your doctor immediately: ??? muscle weakness, cramps, or pain ??? leg pain ??? extreme thirst ??? frequent urination ??? confusion ??? shortness of breath, especially when you exercise or lie down ??? coughing or wheezing ??? fast heartbeat ??? extreme tiredness ??? swelling of the arms, hands, feet, ankles or lower legs ??? pain, warmth, redness, swelling or tenderness in one leg ??? headache ??? dizziness ??? red skin color, especially on the face ??? hives ??? rash ??? itching ??? difficulty breathing or swallowing Cyanocobalamin injection may cause other side effects. Call your doctor if you have any unusual problems while taking this medication. If you experience a serious side effect, you or your doctor may send a report to the Food and Drug Administration's (FDA) [place] Adverse Event Reporting program online (https://www.fda.gov/Safety/MedWatch) or by phone ( ). What should I know about STORAGE and DISPOSAL of this medication? Your doctor will store this medication in his or her office. What should I do in case of OVERDOSE? In case of overdose, call the poison control helpline at . Information is also available online at https://www.poisonhelp.org/help. If the victim has collapsed, had a seizure, has trouble breathing, or can't be awakened, immediately call emergency services at 411. What OTHER INFORMATION should I know? Keep all appointments with your doctor and the laboratory. Your doctor will order certain lab teststo check your body's response to cyanocobalamin injection. Keep a written list of all of the prescription and nonprescription (grjs-ktr-jrfargz) medicines, vitamins, minerals, and dietary supplements you are taking. Bring this list with you each time you visit a doctor or if you are admitted to the hospital. You should carry the list with you in case of malcolm rgencies. This report on medications is for your information only, and is not considered individual patient advice. Because of the changing nature of drug information, please consult your physician or pharmacist about specific clinical use. The [employer] represents that the information provided hereunder was formulated with a reasonable standard of care, and in conformity with professional standards in the field. The [employer] makes no representations or warranties, express or implied, including, but not limited to, any implied warranty of merchantability and/or fitness for a particular purpose, with respect to such information and specifically disclaims all such warranties. Users are advised that decisions regarding drug therapy are complex medical decisions requiring the independent, informed decision of an appropriate health animal care supervisor, and the information is provided for informational purposes only. The entire monograph for a drug should be reviewed for a thorough understanding of the drug's actions, uses and side effects. The [employer] does not endorse or recommend the use of any drug.The information is not a substitute for medical care. FS?? Patient Medication Information???. ?? Copyright, 2023. The [employer]??, [address], [address], [place], [place]. All Rights Reserved. Duplication for commercial use must be authorized by [facility]. AHFS?? Patient Medication Information???. ?? Copyright, 2024 ?? * Vero Gil RN: PERFORM Event Display: Patient Education Leaflets Authored Date: [id number] Magnesium Oxide ?? [id number] Magnesium Oxide Brand Name(s): Mag-Ox??, Maox??, Uro-Mag??; also available generically ? This branded product is no longer on the market. Generic alternatives may be available. ?? WHY is this medicine prescribed? Magnesium is an element your body needs to function normally. Magnesium oxide may be used for different reasons. Some people use it as an antacid to relieve heartburn, sour stomach, or acid indigestion. Magnesium oxide also may be used as a laxative for short-term, rapid emptying of the bowel (before surgery, for example). It should not be used repeatedly. Magnesium oxide also is used as a dietary supplement when the amount of magnesium in the diet is not enough. Magnesium oxide is available without a prescription. HOW should this medicine be used? Magnesium oxide comes as a tablet and capsule to take by mouth. It usually is taken one to four times daily depending on which brand is used and what condition you have. Follow the directions on the package or on your prescription label carefully, and ask your doctor or pharmacist to explain any part you do not understand. Take magnesium oxide exactly as directed. Do not take more or less of it or take it more often than prescribed by your doctor. Take any other medicine and magnesium oxide at least 2 hours apart. If you are using magnesium oxide as a laxative, take it with a full glass (8 ounces [240 milliliters]) of cold water or fruit juice. Do not take a dose late in the day on an empty stomach. Do not take magnesium oxide as an antacid for longer than 2 weeks unless your doctor tells you to. Do not take magnesium oxide as a laxative for more than 1 week unless your doctor tells you to. Are there OTHER USES for this medicine? This medication is sometimes prescribed for other uses; ask your doctor or pharmacist for more information. What SPECIAL PRECAUTIONS should I follow? Before taking magnesium oxide, ??? tell your doctor and pharmacist if you are allergic to magnesium oxide, other antacids or laxatives, or any other drugs. ??? tell your doctor and pharmacist what prescription and nonprescription medications, vitamins, nutritional supplements, and herbal products you are taking or plan to take wh ile taking magnesium oxide. Your doctor may need to change the doses of your medications or monitoryou carefully for side effects. ??? the following nonprescription products may interact with magnesium oxide: aspirin, cimetidine (Tagamet), ranitidine (Zantac). Be sure to let your doctor and pharmacist know that you are taking these medications before you start taking magnesium oxide. Do not start any of these medications while taking magnesium oxide without discussing with your healthcare provider. ??? tell your doctor if you have or have ever had heart, kidney, liver, or intestinal disease or high blood pressure. ??? tell your doctor if you are , plan to become , or are breast-feeding. If you become while taking magnesium oxide, call your doctor immediately. ???tell your doctor if you are on a low-salt, low- sugar, or other special diet. What should I do IF I FORGET to take a dose? If you are taking magnesium oxide on a regular schedule, take the missed dose as soon you remember it. However, if it is almost time for the next dose, skip the missed dose and continue your regular dosing schedule. Do not take a double dose to make up for a missed one. What SIDE EFFECTS can this medicine cause? If you experience any of the following symptoms, call your doctor immediately: ??? rash or hives ??? itching ??? dizziness or lightheadedness ??? mood or mental changes ??? unusual tiredness ??? weakness ??? nausea ??? vomiting If you experience a serious side effect, you or your doctor may send a report to the Food and Drug Administration's (FDA) MedWatch Adverse Event Reporting program online (https://www.fda.gov/Safety/MedWatch) or by phone ( ). What should I know about STORAGE and DISPOSAL of this medication? Keep this medication in the container it came in, tightly closed, and out of reach of children. Store it at room temperature and away from excess heat and moisture (not in the bathroom). Dispose of unneeded medications in a way so that pets, children, and other people cannot take them.Do not flush this medication down the toilet. Use a medicine take-back program. Talk to your pharmacist about take-back programs in your community. Visit the FDA's Safe Disposal of Medicines website h ttps://goo.gl/c4Rm4p for more information. Keep all medication out of sight and reach of children as many containers are not child-resistant. Always lock safety caps. Place the medication in a safe location ??? one that is up and away and outof their sight and reach. https://www.upandaway.org What should I do in case of OVERDOSE? In case of overdose, call the poison control helpline at . Information is also available online at https://www.poisonhelp.org/help. If the victim has collapsed, had a seizure, has trouble breathing, or can't be awakened, immediately call emergency services at 911. What OTHER INFORMATION should I know? If this medicine has been prescribed for you, keep all appointments with your doctor so that your response to magnesium can be checked. Do not let anyone else take your medicine. Keep a written list of all of the prescription and nonprescription (xlry-tep-lbhikha) medicines, vitamins, minerals, and dietary supplements you are taking. Bring this list with you each time you visit a doctor or if you are admitted to the hospital. You should carry the list with you in case of malcolm rgencies. This report on medications is for your information only, and is not considered individual patient advice. Because of the changing nature of drug information, please consult your physician or pharmacist about specific clinical use. The [employer] represents that the information provided hereunder was formulated with a reasonable standard of care, and in conformity with professional standards in the field. The [employer] makes no representations or warranties, express or implied, including, but not limited to, any implied warranty of merchantability and/or fitness for a particular purpose, with respect to such information and specifically disclaims all such warranties. Users are advised that decisions regarding drug therapy are complex medical decisions requiring the independent, informed decision of an appropriate health animal care supervisor, and the information is provided for informational purposes only. The entire monograph for a drug should be reviewed for a thorough understanding of the drug's actions, uses and side effects. The [employer] does not endorse or recommend the use of any drug.The information is not a substitute for medical care. AHFS?? Patient Medication Information???. ?? Copyright, 2023. The [employer]??, [address], [address], [place], [place]. All Rights Reserved. Duplication for commercial use must be authorized by [facility]. Selected Revisions: November 22, 2023. AHFS?? Patient Medication Information???. ?? Copyright, 2024 ?? Patient Care team information Care Team Personnel Name: Julio Cesar Bernardo RN Position: [facility] RN Member Role: Primary Care Nurse Name: Enrique Sandhu RN Position: [facility] RN Member Role: Primary Care Nurse Name: Bk Coyne RN Position: [facility] RN Member Role: Primary Care Nurse Name: Raza Torres Position: S RN Member Role: Primary Care Nurse Name: Kendra Alvarez RN Position: S RN Member Role: Primary Care Nurse Name: Suzanne Owens RN Position: [facility] OB RN Member Role: Primary Care Nurse Name: Not on Staff, PCP Position: [facility] Physician (General Medicine) Member Role: PCP Name: Liu Paz RN Position: [facility] RN Member Role: Primary Care Nurse Name: Lilia Santana RN Position: S RN Member Role: Primary Care Nurse Care Team Related Persons Name: SHRUTHI ROCKWELL Name: EYAD TORIBIO Insurance Providers Guarantor name: EVELIN Health Plan Information #: 1 Payer: MEDICARE A INPT 25 Payer Identifier: EVELIN Member Number: [id number] Group Number: EVELIN Subscriber Identifier: [id number] Relationship to Subscriber: self Coverage Type: MEDICARE Coverage Verification Date: NA Telecom: Address: Health Plan Information #: 2 Payer: [employer] Payer Identifier: EVELIN Member Number: [id number] Group Number: EVELIN Subscriber Identifier: [id number] Relationship to Subscriber: self Coverage Type: MEDICAID Coverage Verification Date: Telecom: Address:
--- NOTE | 2024-12-02 11:08 | A.OFFVIS_ITS ---
Intake Visit Reasons: recent Er visit Allergies No Known Allergies Allergy (Verified 12/01/24 17:30) Medication List - Last Reconciled 12/02/24 by Aureliano Perez MD atorvastatin 20 mg PO DAILY benztropine mg PO BID cyanocobalamin (vitamin B-12) 500 mcg PO DAILY gemfibrozil 600 mg PO BID glipizide 5 mg PO BID insulin glargine (Lantus Solostar U-100 Insulin) units subcut lacosamide 100 mg (2 x 50 mg) PO BID 30 days metformin 1,000 mg PO BID metformin ER 1,000 mg PO BID metoprolol succinate ER 25 mg PO DAILY risperidone 3 mg PO BID trazodone 150 mg PO BEDTIME valproic acid (as sodium salt) 750 mg (15 mL) PO Q8H 30 days HPI Comments Details: He has a history of a seizure disorder, but no medical records are available to know what kind of seizures or the etiology. He is on psych medicines and seizure medicines. He apparently had a workup in [place], [place], but those records and the details of which hospital he was in, is not available. He lives in a supervised home for 6 months and no seizures have been noted. His behavior is fine. He has no complaints. If the unknown if he had a encephalopathy or any head trauma in the past. He is also being treated for a mood disorder. [facility] Medical History (Updated 12/02/24 @ 11:37 by Aureliano Perez MD) Hyperlipidemia Mood disorder Seizure disorder Diabetes mellitus Social History (Updated 12/01/24 @ 17:29 by Anna Infante MA) Patient Tobacco Use Status: Current everyday Tobacco user Physical Exam Neuro Other: ?Neurological Abnormal neurological findings:?Mentally challenged but follows commands and is pleasant and cooperative.? Mental Status:?alert and oriented X 2,?Normal attention,?.? Cranial Nerves:?Pupils are equal, round and reactive to light. Fundoscopy shows normal disc bilaterally. External occular muscles are intact. Visual gonzalez are full, no ptosis. Face is symmetrical, no facial weakness or droop. Facial sensations are normal. Tongue protrudes in midline. Palate elevates symmetrically. Shoulder shrugging is normal..? Motor Examination:?Normal muscle tone, bulk and strength,?No atrophy or fasciculations,?No drift of the extended upper extremities,?Deep tendon reflexes are 2+?,?Plantars are flexor?.? Straight Leg Raising:?90 degrees.? Sensory Exam:?Normal light touch, temperature, pinprick, vibration and joint- position sensations?,?Rhomberg sign is absent.? Coordination:?no ataxia,?no titubation,?hbhtxj-lp-umxw, rhtk-drat-tiwh test and rapid alternating movements were normal.? Gait Exam:?Within normal limits.? Cerebellar Signs:?Ylcvnm-dm-eocl and uewy-we-thqo is normal,?no dysdiadochokin esia?.? Extrapyramidal System:?No tremor, rigidity with normal facial expressions,?No bradykinesia, no bradyphrenia. Normal arm swing and posture. No propulsion or retropulsion.? Speech:?Normal,?no dysphasia or dysarthria..? Mini Mental Status Exam Level of Consciousness:?Alert.? Orientation:?Limited mental status exam.? Registration:?Able to register 3 objects.? Attention:?Unable.? Recall:?Unable.? Language:?Normal spontaneous speech, fluency, repetition,naming, comprehension, reading and writing.? General Examination GENERAL APPEARANCE:?normal,?in no acute distress.? HEAD:?normocephalic,?atraumatic.? EYES:?sclera non-icteric,?conjunctiva clear.? EARS:?auditory canal clear,?tympanic membrane intact, clear.? NOSE:?no lesions.? ORAL CAVITY:?gums normal,?mucosa moist,?no lesions.? THROAT:?clear.? NECK/THYROID:?no cervical lymphadenopathy,?thyroid normal,?neck supple, full range of motion,?no carotid bruit.? SKIN:?no rashes,?no significant birthmarks.? HEART:?S1, S2 normal,?no murmurs.? LUNGS:?clear anteriorly and posteriorly.? CHEST:?no gross rib deformity,?clear to auscultation.? BACK:?normal exam of spine.? EXTREMITIES:?no edema.? PERIPHERAL PULSES:?normal.? PSYCH:?alert, oriented,?cognitive function intact,?cooperative with exam.? 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 Medications: New metoprolol succinate ER 25 mg PO DAILY 30 tabs 0RF glipizide 5 mg PO BID 30 tabs 0RF metformin 1,000 mg PO BID 60 tabs 0RF valproic acid (as sodium salt) 750 mg (15 mL) PO Q8H 1,350 mL 8RF 30 days lacosamide 100 mg (2 x 50 mg) PO BID 120 tabs 5RF 30 days Coding Level of Care Code Est Pt Level 5 (56122) Diagnoses Seizure disorder G40.909 Static encephalopathy G93.49
--- OUTSIDE RECORDS SUMMARY | 2024-12-02 12:05 | XMS_ITS | Encounter Summary ---
Author Organization [facility] Address [address] [place] [address] Care Team Providers Care Pbx Supervisor Name Role Phone Laci Baron MD Primary Care Provider Reason for Visit * Reason Onset Date Comments Hospital Follow-up 11/27/2024 Encounter Details Date Type Department Care Team ([facility] Contact Info) Description 11/27/2024 Telephone Adult Medicine [address] [phone] [place], [place] Hospital Follow-up Social History Tobacco Use Types Packs/Day Years Used Date Smoking Tobacco: Every Day Smokeless Tobacco: Never Alcohol Use Standard Drinks/Week Comments Not Currently 0 (1 standard drink = 0.6 oz pur e alcohol) Housing Instability Answer Date Recorde d Are you worried that in the next 2 months you may not have stable housing? No 08/25/2024 Food Access & Nutrition Answer Date Rec orded Do you have access to a vari ety of food including fruits and vegetables? Yes 08/25/2024 Health Literacy Answer Date Recorded How often do you need to hav e someone help you when you read instructions, pamphlets, or other written material from your doctor or pharmacy? Never 08/25/2024 Caregiver: How often do you need to have someone help you when you read instructions, pamphlets, or other written material from your doctor or pharmacy? Not on file 08/25/2024 Financial Risk Answer Date Recorded How hard is it for you to pa y for the very basics like food, housing, medical care, and air conditioning / heating? Not very hard 08/25/2024 Transportation Answer Date Recorded Has the lack of transportati on kept you from meetings, work, or from getting things needed for daily living? No Has the lack of transportati on kept you from medical appointments or from getting medications? No 08/25/2024 Social Isolation Answer Date Recorded How often do you feel lonely or isolated from th ose around you? Never 08/25/2024 Food Risk Answer Date Recorded Within the past 12 months we worried whether our food would run out before we got money to buy more. Never true 08/25/2024 Within the past 12 months th e food we bought just didn't last and we didn't have money to get more. Never true 08/25/2024 Dependent Care Answer Date Recorded Do you need help finding or paying for care for your loved ones. For example, child care specialist or elderly care for an older adult? No 08/25/2024 Education Answer Date Recorded Do you think completing more education or training, like finishing a GED, going to college, or learning a trade, would be helpful for you? No 08/25/2024 Employment and Income Answer Date Recor ded During the last four weeks, have you been actively looking for work? No 08/25/2024 Living Situation Answer Date Recorded What is your living situation? 0 08/25/2024 Interpersonal Safety Answer Date Record ed Physical Abuse 06/30/2024 Verbal Abuse 06/30/2024 Sex and Gender Information Value Date Recorded Sex Assigned at Not on file Legal Sex Male 12:59 AM EST Gender Identity Not on file Sexual Orientation Not on file documented as of this encounter Progress Notes * Dyan Bingham RN - 11/27/2024 10:48 AM EDT Spoke with skilled nursing case manager for the pt and scheduled hosp f/u for 12/03 at 1:45 with PCP * Linette Mello MA - 11/27/2024 10:17 AM EDT Hospital/ER follow up appointment needed Hospital patient was treated at: [facility], [facility] Was this only an ER visit or was the patient admitted to the hospital? Admitted to the hospital/kept overnight Date of visit if ER visit only: If patient was admitted what was the date of discharge? 11/27/24 Reason/diagnosis for visit or stay: seizers When was the patient told to follow up? neid Was visit or stay related to an injury? If yes, what was the date of injury (DOI)? No If yes, was the injury due to: Not 3rd constitution party related documented in this encounter Plan of Treatment Upcoming Encounters Date Type Department Care Team (Late st Contact Info) Description 12/03/2024 2:00 PM EDT Office Visit Adult Medicine [facility] [address] [place] [phone] Laci Baron MD [address] [place] [address] 12/16/2024 10:30 AM EDT Office Visit Orthopedic Surgery - [place] [id number] [phone] Dewey Ayala, DPM [address] [phone] documented as of this encounter Visit Diagnoses Not on filedocumented in this encounter Additional Health Concerns Assessment Noted Time PHQ-9 Depression Total Score: 0 08/26/19 25 12:58 PM EDT documented as of this encounter Care Teams Pbx Supervisor Relationship Specialty Start Date End Date Laci Baron MD [address] [place] [address] PCP - General 08/07/22 documented as of this encounter
== END 2024-12-02 11:42 | disposition home or self-care (01) ==
LOC: HO.HSM 10:52
PROVIDERS: PCP Internal Medicine; Referring Provider Internal Medicine; Visit Provider Psychiatry & Neurology Neurology
DX: G40.909 Epilepsy, unspecified, not intractable, without status epilepticus (principal); G93.49 Other encephalopathy
CPT/HCPCS: 99214

== ENCOUNTER → 2024-12-02 10:51 | Outpatient (BNVA) | payer MEDICARE, MEDICAID, SELFPAY | PROVIDERS: PCP Internal Medicine; Referring Provider Internal Medicine; Visit Provider Psychiatry & Neurology Neurology | DX: G40.909 Epilepsy, unspecified, not intractable, without status epilepticus (principal); G93.49 Other encephalopathy | CPT/HCPCS: 99212 ==

== ENCOUNTER 2025-05-27 13:00 | Outpatient (AMB) | payer MEDICARE, OTHER, MEDICAID, SELFPAY ==
--- OUTSIDE RECORDS SUMMARY | 2025-05-27 13:02 | XMS_ITS | Clinical Summary ---
Author Organization 175 [facility] Address [address] [place] [address] Phone Care Team Providers Care Dough Braker Name Role Phone Laci Baron MD Primary Care Provider Allergies No known active allergies Medications acetaminophen (TYLENOL 8 HOUR) 650 mg 8 hr tablet Take 1 Tablet by mouth every 8 hours as needed for Pain. 05/30/20 23 Active benztropine (COGENTIN) 0.5 mg tablet Take 1 Tablet by mouth 2 times daily. Active blood-glucose meter (BLOOD GLUCOSE MONITORING MISC) Blood Glucose Monitoring Suppl (Prodigy AutoCode Blood Glucose) w/Device Kit Use to test your blood sugar 3 times a day. 11/12/19 24 Active FREESTYLE LANCETS MISC Check blood sugar daily 11/08/19 24 Active freestyle 28 gauge lancets USE TO TEST UP TO 3 TIMES DAILY 02/20/20 24 Active risperiDONE (RisperDAL) 3 mg tablet Take 1 Tablet by mouth 2 times daily. Active valproic acid (DEPAKENE) 250 mg/5 mL syrup 15 ml three times a day Active glucose blood (Prodigy No Coding) test strip Check blood sugar daily once in the morning. 100 strip 3 05/06/20 24 Active glucose 4 gram chewable tablet Chew 4 tablets (16 g total) every 15 (fifteen) minutes if needed for low blood sugar. Low blood sugar less than 60 360 tablet 05/06/20 24 Active traZODone (DESYREL) 150 mg tablet 06/16/19 25 Active lacosamide (VIMPAT) 100 mg tablet Take 1 tablet (100 mg total) by mouth 2 (two) times a day. 11/27/19 Active metFORMIN XR (GLUCOPHAGE-XR ) 500 mg 24 hr tablet TAKE (2) TABLETS BY MOUTH TWICE DAILY WITH MEALS. DO NOT CRUSH, CHEW OR SPLIT. 360 tablet 1 12/13/19 Active glipiZIDE (GLUCOTROL XL) 5 mg 24 hr tablet TAKE 1 TABLET BY MOUTH TWICE DAILY WITH MEALS. DO NOT CRUSH, CHEW OR SPLIT. 60 tablet 5 01/07/20 Active atorvastatin (LIPITOR) 20 mg tablet TAKE 1 TABLET BY MOUTH ONCE DAILY 28 tablet 5 01/07/20 25 Active spironolactone (ALDACTONE) 25 mg tablet Take 1 tablet (25 mg total) by mouth 1 (one) time each day. 02/02/20 Active Farxiga 10 mg tablet Take 1 tablet (10 mg total) by mouth 1 (one) time each day. 02/02/20 Active metoprolol succinate (TOPROL-XL) 25 mg 24 hr tablet TAKE 1 TABLET BY MOUTH ONCE DAILY 30 tablet 5 04/28/20 Active aspirin 81 mg EC tablet TAKE 1 TABLET BY MOUTH ONCE DAILY 30 tablet 5 04/28/20 Active gemfibrozil (LOPID) 600 mg tablet TAKE 1 TABLET BY MOUTH TWICE DAILY 30 MINUTES BEFORE MEALS. 60 tablet 05/25/20 Active cyanocobalamin (VITAMIN B-12) 500 mcg tablet TAKE 1 TABLET BY MOUTH ONCE DAILY 30 tablet 05/25/20 25 Active metoprolol succinate (TOPROL-XL) 25 mg 24 hr tablet Take 1 tablet (25 mg total) by mouth 1 (one) time each day. 90 each 1 12/04/19 25 025 Discontinued aspirin 81 mg EC tablet Take 1 tablet (81 mg total) by mouth 1 (one) time each day. 90 tablet 1 12/04/19 25 025 Discontinued gemfibroziL (LOPID) 600 mg tablet TAKE 1 TABLET BY MOUTH TWICE DAILY 30 MINUTES BEFORE MEALS. 180 tablet 1 12/13/19 25 025 Discontinued cyanocobalamin (VITAMIN B-12) 500 mcg tablet TAKE 1 TABLET BY MOUTH ONCE DAILY 90 tablet 1 12/13/19 25 025 Discontinued Active Problems Problem Noted Date Diagnosed Date Sleep apnea 02/06/2025 HFrEF (heart failure with reduced ejection fract ion) 12/03/2024 Major depressive disorder, single episode, mild 08/07/2024 Bipolar disorder, unspecified 08/07/2024 Obesity, unspecified 08/07/2024 Type 2 diabetes mellitus wit hout complication, with long-term current use of insulin 05/06/2024 Developmental delay 11/08/2023 B12 deficiency 05/30/2023 Nichole's palsy 05/30/2023 Bipolar affective disorder, current episode mixe d 05/30/2023 Dyslipidemia 05/30/2023 Schizophrenia 05/30/2023 Seizure disorder 05/30/2023 Resolved Problems Problem Noted Date Diagnosed Date Resolved Date Type 2 diabetes mellitus wit h hyperosmolarity without nonketotic hyperglycemic-hyperosmolar coma (NKHHC) 08/07/2024 08/25/2024 Type 2 diabetes mellitus wit h hyperglycemia, without long-term current use of insulin 05/31/2023 05/06/2024 Encounters Date Type Department Care Team Description 04/22/2025 9:45 AM EST Office Visit Orthopedic Surgery - [address] [phone] Jean Zuleta, DPM Arthritis of both feet (Primary Dx); Hammertoes of both feet; Dermatophytosis, nail; Pain in toes of both feet; Diabetic mononeuropathy simplex ([facility] [place], [facility] [place] from Last 3 Months Immunizations Immunization Administration Dates Next Due Hepatitis B (Ebfpcmc-Z-Evqvn , Recombivax HB-Adult) 19yo and older 10/01/2024,08/25/2024 Influenza Quadravalent, MDCK , 0.5ml, preservative free (Flucelvax) 6mo and older 02/05/2024 Pneumococcal conjugate 20 va lent (Prevnar 20, PCV 20) 2mo and older 11/01/2023 Pneumococcal polysaccharide 23 valent (Pneumovax 23) 2yo and older 11/20/2014 Tdap Tetanus diptheria acell ular pertussis (Boostrix; Adacel) 7yo and older 11/01/2023,08/16/2012 Medical History Medical History Date Comments Type 2 diabetes mellitus wit h hyperglycemia, without long-term current use of insulin [place] [place] [facility] [place] 05/31/2023 Seizures ([facility] [place], [facility] [place] Hyperlipidemia Type 2 diabetes mellitus wit h hyperosmolarity without nonketotic hyperglycemic-hyperosmolar coma (NKHHC) ([facility] [place], [facility] [place] 08/07/2024 Social History Tobacco Use Types Packs/Day Years Used Date Smoking Tobacco: Every Day Smokeless Tobacco: Never Tobacco Cessation:Ready to Q uit: Not Asked; Counseling Given: Not Answered Alcohol Use Standard Drinks/Week Comments Not Currently [...] for your loved ones. For example, child caregiver private home or elderly care for an older adult? [...] Date Recorded What is your living situation? Unrecognized valu e 08/25/2024 Interpersonal Safety Answer Date Record ed Physical Abuse Unrecognized value 06/30/2024 Verbal Abuse Unrecognized value 06/30/2024 Sex and Gender Information Value Date Recorded Sex Assigned at Not on file Legal Sex Male 12:59 AM EST Gender Identity Not on file Sexual Orientation Not on file Last Filed Vital Signs Vital Sign Reading Time Taken Comments Blood Pressure 115/81 02/06/2025 9:28 AM EDT Pulse 92 02/06/2025 9:28 AM EDT Temperature 36.1 C (97 F) 02/06/2025 9:28 AM EDT Respiratory Rate 16 02/06/2025 9:28 AM EDT Oxygen Saturation 98% 02/06/2025 9:28 AM EDT Inhaled Oxygen Concentration - - Weight 90.4 kg (199 lb 6.4 oz) 02/06/2025 9:28 A M EDT Height 170.2 cm (5' 7 ) 02/06/2025 9:28 AM EDT Body Mass Index 31.23 02/06/2025 9:28 AM EDT Plan of Treatment Upcoming Encounters Date Type Department Care Team (Late st Contact Info) Description 06/09/2025 9:45 AM EST Office Visit Adult Medicine [address] [phone] Laci Baron MD [address] [place], [place] 06/25/2025 10:30 AM EST Office Visit Orthopedic Surgery - [place] [address] [phone] Dewey Ayala DPM [address] [address] 07/27/2025 8:00 AM EST Office Visit Adult Medicine [facility] [address] [place], [place] [phone] Lala Jackson PA [address] [place], [place] Health Maintenance Due Date Last Done Comments Diabetes: Annual Retina Eye Exam 1988 COVID-19 Vaccine (2024- season) 2025 Influenza Vaccine (#1) 2025 02/05/2024 Hepatitis B Vaccines (3 of 3 - 19+ 3-dose series) 02/25/2025 10/01/2024, 08/25/2024 Diabetes: Blood Sugar Control Test (HGBA1C) 08/09/2025 02/09/2025, 08/25/2024, 05/06/2024, Additional history exists Social Influencers of Health Screening 08/25/2025 08/25/2024 Diabetes: Annual Foot Exam 02/06/2026 02/06/2025, Diabetes: Annual Urine Albumin-Creatinine Ratio (uACR) 02/09/2026 02/09/2025, 08/25/2024, 05/06/2024, Additional history exists Diabetes: Annual GFR (Glomerular Filtration Rate) 02/09/2026 02/09/2025, 08/25/2024, 05/06/2024, Additional history exists Cholesterol Screening (Lipid Panel) 02/09/2030 02/09/2025, 08/25/2024, 05/06/2024, Additional history exists DTaP,Tdap,and Td Vaccines (3 - Td or Tdap) 10/31/2033 11/01/2023, 08/16/2012 Colorectal Cancer Screening: Colonoscopy 06/30/2034 06/30/2024 RSV Immunization Adult Patients (1 - 1-dose 75+ series) 2053 Pneumococcal Vaccine: Pediatrics (0 to 5 Years) and At-Risk Patients (6 to 49 Years) Completed 11/01/2023, 11/20/2014 HIV Screening Completed 05/06/2024 Hepatitis C Screening Completed 05/06/2024 Depression Screening Completed 08/25/2024, 05/30/20 23 HIB Vaccines Aged Out No longer eligi ble based on patient's age to complete this topic HPV Vaccines Aged Out No longer eligi ble based on patient's age to complete this topic Hepatitis A Vaccines Aged Out No long er eligible based on patient's age to complete this topic IPV Vaccines Aged Out No longer eligi ble based on patient's age to complete this topic MMR Vaccines Aged Out No longer eligi ble based on patient's age to complete this topic Medicare Annual Wellness Visit Discontinued Meningococcal ACWY Vaccine Aged Out N o longer eligible based on patient's age to complete this topic Meningococcal B Vaccine Aged Out No l onger eligible based on patient's age to complete this topic RSV Immunization Patients Under 20 months Aged Out No longer eligible based on patient's age to complete this topic Varicella Vaccines Aged Out No longer eligible based on patient's age to complete this topic Procedures Procedure Name Priority Date/Time Associated Diagnosis Comments MICROALBUMIN CREATININE URINE RATIO Routine 02/09/2025 9:04 AM EDT Type 2 diabetes mellitus without complication, with long-term current use of insulin (CMS/HCC V24, CMS/HCC V28) COMPREHENSIVE METABOLIC PANEL Routine 02/09/2025 9:04 AM EDT Type 2 diabetes mellitus without complication, with long-term current use of insulin (CMS/HCC V24, CMS/HCC V28) HEMOGLOBIN A1C Routine 02/09/2025 9:04 AM EDT Type 2 diabetes mellitus without complication, with long-term current use of insulin (CMS/HCC V24, CMS/HCC V28) LIPID PANEL WITH REFLEX TO DIRECT LDL Routine 02/09/2025 9:04 AM EDT Type 2 diabetes mellitus without complication, with long-term current use of insulin (CMS/HCC V24, CMS/HCC V28) COLONOSCOPY Routine 06/30/2024 11:12 AM EST Colon cancer screening HEPATITIS C ANTIBODY Routine 05/06/2024 1:54 PM EST Need for hepatitis C screening test HIV 1, 2 ANTIBODY, P24 ANTIGEN WITH REFLEX TO DIFFERENTIATION Routine 05/06/2024 1:54 PM EST Encounter for screening for HIV DIABETES FOOT EXAM Routine 11/01/2023 DEPRESSION SCREENING Routine 05/30/2023 from Last 3 Months or Most Recently Relevant to Health Maintenance Results * (ABNORMAL) Lipid panel with reflex to direct LDL (02/09/2025 9:04 AM EDT) Cholesterol 82 0 - 200 mg/dL LAB CHEMISTRY METHOD 02/09/2025 2:19 PM EDT [facility] Triglycerides 103 0 - 150 mg/dL LAB CHEMISTRY METHOD 02/[facility]25 [facility] HDL 37(L) >=40 mg/dL LAB CHEMISTRY METHOD 02/09/2025 2:19 PM [facility] LDL Calculated 24 0 - 100 mg/dL LAB CHEMISTRY METHOD 02/09/2025 2:19 PM T [facility] Comment:Estimated LDL Calcul ated using equation: Total cholesterol - HDL cholesterol - (Triglycerides/5) VLDL Cholesterol Josué 20.6 mg/dL LAB CHEMISTRY METHOD 02/09/2025 2:19 PM EDT [facility] Non HDL Chol. (LDL+VLDL) 45 <145 mg/dL LAB CHEMISTRY METHOD 02/09/2025 2:19 PM [facility] Chol/HDL Ratio 2.2 0.0 - 4.4 LAB CHEMISTRY METHOD 02/09/2025 2:19 PM [facility] Blood Venous blood specimen / Unknown Venipuncture / Unknown 02/09/2025 9:04 AM EDT 02/09/2025 9:04 AM EDT Laci Baron MD LAB BLOOD ORDERABLES F inal Result Performing Organization Address [facility]/ZIP Co de Phone Number [facility] [address] [place] [address], [place] [phone] * Microalbumin creatinine urine ratio (02/09/2025 9:04 AM EDT) Creatinine, Urine 123.0 mg/dL LAB CHEMISTRY METHOD 02/09/2025 11:34 AM EDT [facility] Microalb, Ur <5.0 0.0 - 29.0 mg/L LAB CHEMISTRY METHOD 02/09/2025 11:34 AM EDT [facility] Microalb/Creat Ratio <4 <30 mg/g creat LAB CHEMISTRY METHOD 02/09/2025 11:34 AM EDT [facility] Urine Urine specimen obtained by clean catch procedure / Unknown Non-blood Collection / Unknown 02/09/2025 9:04 AM EDT 02/09/2025 9:04 AM EDT Laci Baron MD LAB URINE ORDERABLES F inal Result Performing Organization Address [facility]/ZIP Co de Phone Number [facility] [address] [place] [address], [place] [phone] * (ABNORMAL) Hemoglobin A1c (02/09/2025 9:04 AM EDT) Hemoglobin A1C 7.4(H) <6.5 % LAB CHEMISTRY METHOD 02/09/2025 12:28 PM EDT [facility] Mean Bld Glu Estim. 166 mg/dL LAB CHEMISTRY METHOD 02/09/2025 12:28 PM EDT [facility] Blood Venous blood specimen / Unknown Venipuncture / Unknown 02/09/2025 9:04 AM EDT 02/09/2025 9:04 AM EDT us Laci Baron MD LAB BLOOD ORDERABLES F inal Result [facility] [address] [place] [address], [place] [phone] * (ABNORMAL) Comprehensive metabolic panel (02/09/2025 9:04 AM EDT) Sodium 139 133 - 145 mmol/L LAB CHEMISTRY METHOD 02/09/2025 2:25 PM T [facility] Potassium 4.5 3.5 - 5.5 mmol/L LAB CHEMISTRY METHOD 02/09/2025 2:25 PM [facility] Chloride 112(H) 96 - 110 mmol/L LAB CHEMISTRY METHOD 02/09/2025 2:25 PM [facility] CO2 21 21 - 32 mmol/L LAB CHEMISTRY METHOD 02/09/2025 2:25 PM [facility] Anion Gap 6 3 - 11 LAB CHEMISTRY METHOD 02/09/2025 2:25 PM [facility] Glucose 101(H) 70 - 100 mg/dL LAB CHEMISTRY METHOD 02/09/2025 2:25 PM [facility] BUN 17 5 - 25 mg/dL LAB CHEMISTRY METHOD 02/09/2025 2:25 PM [facility] Creatinine 1.19 0.70 - 1.30 mg/dL LAB CHEMISTRY METHOD 02/09/2025 2:25 PM [facility] eGFR 76 >=60 mL/min/1. 73m2 LAB CHEMISTRY METHOD 02/09/2025 2:25 PM [facility] Comment:Calculation based on the Chronic Kidney Disease Epidemiology Collaboration (CKD-EPI) equation refit without adjustment for race. BUN/Creatinine Ratio 14.3 LAB CHEMISTRY METHOD 02/09/2025 2:25 PM [facility] Calcium 10.2 8.5 - 10.5 mg/dL LAB CHEMISTRY METHOD 02/09/2025 2:25 PM EDT [facility] AST (SGOT) 19 10 - 42 unit/L LAB CHEMISTRY METHOD 02/09/2025 2:25 PM EDT [facility] ALT (SGPT) 17 10 - 60 unit/L LAB CHEMISTRY METHOD 02/09/2025 2:25 PM EDT [facility] Alkaline Phosphatase 101 42 - 121 unit/L LAB CHEMISTRY METHOD 02/09/2025 2:25 PM EDT [facility] Total Protein 6.7 6.0 - 8.0 g/dL LAB CHEMISTRY METHOD 02/09/2025 2:25 PM EDT [facility] Albumin 3.5 3.2 - 5.0 g/dL LAB CHEMISTRY METHOD 02/09/2025 2:25 PM EDT [facility] Total Bilirubin 0.6 0.0 - 1.4 mg/dL LAB CHEMISTRY METHOD 02/09/2025 2:25 PM EDT [facility] Blood Venous blood specimen / Unknown Venipuncture / Unknown 02/09/2025 9:04 AM EDT 02/09/2025 9:04 AM EDT us Laci Baron MD LAB BLOOD ORDERABLES F inal Result [facility] [address] [place] [address], * COLONOSCOPY Anesthesia - MAC; [facility] ENDOSCOPY (06/30/2024 11:12 AM EST) Anatomical Region Laterality Modality Endoscopy 06/30/2024 10:4 9 AM EST Impressions 06/30/2024 11:16 AM EST - Two 3 to 4 mm polyps in the rectum and in the transverse colon, removed with a cold snare. Resected and retrieved. - The examination was otherwise normal on direct and retroflexion views. Recommendation: - Patient has a contact number available for emergencies. The signs and symptoms of potential delayed complications were discussed with the patient. Return to normal activities tomorrow. Written discharge instructions were provided to the patient. - Resume previous diet. - Continue present medications. - Await pathology results. - Repeat colonoscopy in 7-10 years for surveillance. Narrative 06/30/2024 11:16 AM EST [facility] GI Patient Name: Stanislav Thayer Procedure Date: 06/30/2024 10:49 AM Date of : 1980 Age: 43 Gender: Male Note Status: Finalized Attending MD: Art Baptiste MD, Procedure Date No Time: 06/30/2024 Procedure: Colonoscopy Indications: Screening for colorectal malignant neoplasm Providers: Art Baptiste MD Referring MD: Art Baptiste MD Medicines: Monitored Anesthesia Care Estimated Blood Loss: Estimated blood loss: none. Procedure: After I obtained informed consent, the scope was passed under direct vision. Throughout the procedure, the patient's blood pressure, pulse, and oxygen saturations were monitored continuously. The Olympus Colonoscope was introduced through the anus and advanced to the terminal ileum, with identification of the appendiceal orifice and IC valve. The colonoscopy was performed without difficulty. The patient tolerated the procedure well. The quality of the bowel preparation was adequate. Findings: Two sessile polyps were found in the rectum and transverse colon. The polyps were 3 to 4 mm in size. These polyps were removed with a cold snare. Resection and retrieval were complete. The exam was otherwise without abnormality on direct and retroflexion views. Procedure Code(s): --- Professional --- 56966, Colonoscopy, flexible; with removal of tumor(s), polyp(s), or other lesion(s) by snare technique Diagnosis Code(s): --- Professional --- Z12.11, Encounter for screening for malignant neoplasm of colon D12.8, Benign neoplasm of rectum D12.3, Benign neoplasm of transverse colon (hepatic flexure or splenic flexure) CPT copyright 2020 [employer]. All rights reserved. The codes documented in this report are preliminary and upon bit gatherer review may be revised to meet current compliance requirements. MD Art Posadas MD 06/30/2024 11:16:08 AM This report has been signed electronically.Art Baptiste MD Number of Addenda: 0 Note Initiated On: 06/30/2024 10:49 AM Scope In: Scope Out: Endoscopy Department at [facility] - [address] [place] [phone] Procedure Note Art Baptiste MD - 06/30/2024 [facility] GI Patient Name: Stanislav Thayer Procedure Date: 06/30/2024 10:49 AM Date of : 1980 Age: 43 Gender: Male Note Status: Finalized Attending MD: Art Baptiste MD, Procedure Date No Time: 06/30/2024 Procedure: Colonoscopy Indications: Screening for colorectal malignant neoplasm Providers: Art Baptiste MD Referring MD: Art Baptiste MD Medicines: Monitored Anesthesia Care Estimated Blood Loss: Estimated blood loss: none. Procedure: After I obtained informed consent, the scope was passed under direct vision. Throughout theprocedure, the patient's blood pressure, pulse, and oxygen saturations were monitored continuously. TheOlympus Colonoscope was introduced through the anus and advanced to the terminal ileum, with identificationof the appendiceal orifice and IC valve. Thecolonoscopy was performed without difficulty. The patient tolerated the procedure well. The quality of thebowel preparation was adequate. Findings: Two sessile polyps were found in the rectum and transverse colon. The polyps were 3 to 4 mm insize. These polyps were removed with a cold snare.Resection and retrieval were complete. The exam was otherwise without abnormality ondirect and retroflexion views. Procedure Code(s): --- Professional --- 47461, Colonoscopy, flexible; with removal of tumor(s), polyp(s), or other lesion(s) by snare technique Diagnosis Code(s): --- Professional --- Z12.11, Encounter for screening for malignantneoplasm of colon D12.8, Benign neoplasm of rectum D12.3, Benign neoplasm of transverse colon (hepatic flexure or splenic flexure) CPT copyright 2020 [employer]. All rights reserved. The codes documented in this report are preliminary and upon bit gatherer reviewmay be revised to meet current compliance requirements. MD Art Posadas MD 06/30/2024 11:16:08 AM This report has been signed electronically.Art Baptiste MD Number of Addenda: 0 Note Initiated On: 06/30/2024 10:49 AM Scope In: Scope Out: Endoscopy Department at [facility] - [address] [place] [phone] IMPRESSION: - Two 3 to 4 mm polyps in the rectum and in the transverse colon, removed with a cold snare.Resected and retrieved. - The examination was otherwise normal on directand retroflexion views. Recommendation: - Patient has a contact number available for emergencies. The signs and symptoms of potential delayed complications were discussed with thepatient. Return to normal activities tomorrow. Written discharge instructions were provided to thepatient. - Resume previous diet. - Continue present medications. - Await pathology results. - Repeat colonoscopy in 7-10 years forsurveillance. Art Baptiste MD GI~PROCEDURE ORDERABLES Final R esult * Hepatitis C antibody (05/06/2024 1:54 PM EST) Hepatitis C Antibody Negative Negative LAB CHEMISTRY METHOD 05/06/2024 5:47 PM EST [facility] Blood Venous blood specimen / Unknown Venipuncture / Unknown 05/06/2024 1:54 PM EST 05/06/2024 1:54 PM EST Laci Baron MD LAB BLOOD ORDERABLES F inal Result [facility] [address] [place] [address], * HIV 1,2 antibody, p24 antigen with reflex to differentiation (05/06/2024 1:54 PM EST) HIV Combo AB/AG Negative Negative LAB CHEMISTRY METHOD 05/06/2024 5:48 PM EST [facility] Blood Venous blood specimen / Unknown Venipuncture / Unknown 05/06/2024 1:54 PM EST 05/06/2024 1:54 PM EST Narrative [facility] ([facility]) [facility] - 05/06/2024 5:48 PM EST This assay is a 4th generation assay allowing for earlier detection of HIV infection by detecting the presence of the HIV-1 p24 antigen as well as the traditional antibodies to HIV type 1 (including group O) and type 2. Use of a 4th generation assay is the current CDC recommendation for HIV screening. Laci Baron MD LAB BLOOD ORDERABLES F inal Result [facility] ([facility]) [facility] [address] [place] [address], * Diabetes Foot Exam (11/01/2023) Pathologist [facility] Diabetes: Annual Foot Exam abstracted Historical Provider HEALTH MAINTENANCE Final Result * Depression Screening (05/30/2023) Pathologist [facility] Depression Screening abstracted Historical Provider HEALTH MAINTENANCE Final Result from Last 3 Months or Most Recently Relevant to Health Maintenance Insurance MEDICAID - [place] MEDICARE [facility] MEDICAID [place] Care Teams Dough Braker Relationship Specialty Start Date End Date Laci Baron MD [address] [place] [phone] PCP - General 08/07/22
--- OUTSIDE RECORDS SUMMARY | 2025-05-27 13:02 | XMS_ITS | Encounter Summary ---
Author Organization [facility] Address [address] [place] [address] Care Team Providers Care Principal Programmer Name Role Phone Laci Baron MD Primary Care Provider Encounter Details Date Type Department Care Team (Late st Contact Info) Description 09/10/2024 Billing Patient Not Present Adult Medicine [facility] [address] [place] [address] Laci Baron MD [address] [place], [place] Social History Tobacco Use Types Packs/Day Years [...] your loved ones. For example, child care giver or elderly care for an older adult? [...] on file documented as of this encounter Plan of Treatment Upcoming Encounters Date Type Department Care Team (Late st Contact Info) Description 06/09/2025 9:45 AM EST Office Visit Adult Medicine [address] [phone] Laci Baron MD [address] [place], [place] 06/25/2025 10:30 AM EST Office Visit Orthopedic Surgery - [address] [phone] Dewey Ayala, DPM [address] [address] 07/27/2025 8:00 AM EST Office Visit Adult Medicine [place] [id number] [place], [place] [phone] Lala Jackson PA [address] [place], [place] documented as of this encounter Visit Diagnoses Not on filedocumented in this encounter Additional Health Concerns Assessment Noted Time PHQ-9 Depression Total Score: 0 08/26/19 25 12:58 PM EDT documented as of this encounter Care Teams Principal Programmer Relationship Specialty Start Date End Date Laci Baron MD [address] [place] [address] PCP - General 08/07/22 documented as of this encounter
--- OUTSIDE RECORDS SUMMARY | 2025-05-27 13:02 | XMS_ITS ---
Author Name [facility] Organization Unknown Care Team Organization Name Specialty Phone Email Start Date End [facility] 01/21/2025
--- NOTE | 2025-05-27 13:06 | A.OFFVIS_ITS ---
Intake Visit Reasons: Follow Up Accompanied by: Staff member Allergies No Known Allergies Allergy (Verified 05/27/25 13:24) Medication List - Last Reconciled 05/27/25 by Candice Rodríguez CNP atorvastatin 20 mg PO DAILY benztropine mg PO BID cyanocobalamin (vitamin B-12) 500 mcg PO DAILY gemfibrozil 600 mg PO BID glipizide 5 mg PO BID insulin glargine (Lantus Solostar U-100 Insulin) units subcut lacosamide 100 mg (2 x 50 mg) PO BID 30 days metformin 1,000 mg PO BID metformin ER 1,000 mg PO BID metoprolol succinate ER 25 mg PO DAILY risperidone 3 mg PO BID trazodone 150 mg PO BEDTIME valproic acid (as sodium salt) 750 mg (15 mL) PO Q8H 30 days HPI Comments Details: He has a history of a seizure disorder, but no medical records are available to know what kind of seizures or the etiology. It is unknown if he had a encephalopathy or any head trauma in the past. He apparently had a workup in [place], [place], but those records and the details of which hospital he was in, are not available. He lives in a supervised home. He is on psych medicines, treated for mood disorder, and seizure medicines. He was doing okay. No recent seizures. No falls. Behavior was okay. Mood was okay. Sleep was okay. [facility] Medical History (Updated 12/02/24 @ 11:37 by Aureliano Perez MD) Hyperlipidemia Mood disorder Seizure disorder Diabetes mellitus Social History (Updated 12/01/24 @ 17:29 by Anna Infante [place]) Patient Tobacco Use Status: Current everyday Tobacco user Review of Systems Const Denies chills, Denies daytime sleepiness, Denies difficulty sleeping, Denies fatigue, Denies fever(s), Denies frequent falls, Denies headache(s), Denies increased appetite, Denies poor appetite, Denies snoring, Denies weakness, Denies weight gain and Denies weight loss Eyes Denies loss of vision ENT Denies vertigo, Denies dizziness, Denies headache(s) and Denies neck pain Card Denies chest pain at rest, Denies chest pain with activity, Denies syncope, Denies leg edema, Denies palpitations, Denies dyspnea and Denies dyspnea on exertion Resp Denies cough, Denies dyspnea, Denies dyspnea on exertion and Denies snoring GI Denies abdominal pain, Denies constipation, Denies heartburn, Denies diarrhea and Denies nausea Denies urinary frequency, Denies urinary incontinence and Denies urinary urgency Musc Denies abnormal gait, Denies back pain, Denies myalgias, Denies arthralgias, Denies neck pain, Denies numbness and Denies tingling Neuro Denies abnormal gait, Denies vertigo, Denies dizziness, Denies syncope, Denies frequent falls, Denies headache(s), Denies lack of coordination, Denies loss of vision, Denies memory loss, Denies numbness, Denies Other visual disturbances, Denies restless legs, Denies seizure-like activity, Denies tingling, Denies paresthesias, Denies tremor(s) and Denies weakness Psych Denies anxiety, Denies depression, Denies auditory hallucinations, Denies memory loss and Denies visual hallucinations Endo Denies fatigue and Denies palpitations Physical Exam Const Other: General Appearance:? normal, in no acute distress. Heart:? S1, S2 normal, no murmurs. Lungs:? clear anteriorly and posteriorly. Musculoskeletal:? normal. Extremities:? no edema. Psych:? alert, oriented, cognitive function intact, cooperative with exam. Neuro Other: Abnormal Neurological Findings:?Mentally challenged, but follows commands and is pleasant and cooperative. Mental Status: alert, mentally challenged. Cranial Nerves: Pupils are equal, round, and reactive to light. External ocular muscles are intact. Visual gonzalez are full, no ptosis. Face is symmetrical, no facial weakness or droop. Facial sensations are normal. Tongue protrudes in midline. Palate elevates symmetrically. Shoulder shrugging is normal Motor Examination: Normal muscle tone, bulk and strength. No atrophy or fasciculations. No drift of the extended upper extremities. DTR 2+. Plantars are flexor. Sensory Exam: Normal light touch, temperature, pinprick, vibration, and joint- position sensations. Rhomberg sign is absent. Coordination: No ataxia. No titubation. Gait Exam: Within normal limits. Cerebellar Signs: [id number] is okay. Extrapyramidal System: No tremor, rigidity with normal facial expressions. No bradykinesia. No bradyphrenia. Normal arm swing and posture. No propulsion or retropulsion. Speech: Normal. Assessment & Plan Assessment & Plan (1) Seizure disorder: Code(s): G40.909 - Epilepsy, unspecified, not intractable, without status epilepticus Category: Medical Plan: Continue lacosamide 50mg 2 tablets twice a day. Continue valproic acid 750mg 15mL every 8 hours. Follow up in 6 months or sooner as needed. 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 Coding Level of Care Code Est Pt Level 3 (46324) Diagnoses Seizure disorder G40.909 Static encephalopathy G93.49
== END 2025-05-27 13:23 | disposition home or self-care (01) ==
PROVIDERS: PCP Internal Medicine; Visit Provider Registered Nurse
DX: G40.909 Epilepsy, unspecified, not intractable, without status epilepticus (principal); G93.49 Other encephalopathy
CPT/HCPCS: 99213

== ENCOUNTER → 2025-05-27 13:00 | Outpatient (BNVA) | payer MEDICARE, OTHER, MEDICAID, SELFPAY | PROVIDERS: PCP Internal Medicine; Visit Provider Registered Nurse | DX: G40.909 Epilepsy, unspecified, not intractable, without status epilepticus (principal); G93.49 Other encephalopathy; F17.210 Nicotine dependence, cigarettes, uncomplicated | CPT/HCPCS: 99212 ==